=== PATIENT | female | born 1945 | race African-American/Black ===

== ENCOUNTER 2016-08-14 16:03 | Inpatient (IN) | payer OTHER ==
[2016-08-14 17:40] LABS: BASOPHIL 0.3 % (0-2.0); MCHC 31.9 g/dl (32.0-36.0); MEAN CELL VOLUME 91.1 fl (80-96); MEAN PLT VOLUME 8.3 fl (7.5-11.1); NEUTROPHILS 78.7 % (42.8-82.8); PLATELET COUNT 308 K/MM3 (134-434); RDW 15.7 % (11.6-15.6); WHITE BLOOD COUNT 4.7 K/mm3 (4.0-10.0)
[2016-08-14 18:08] LABS: ALBUMIN 3.1 g/dl (3.4-5.0); BILIRUBIN,TOTAL 0.4 mg/dL (0.2-1.0); CALCIUM 9.5 mg/dL (8.5-10.1); CREATININE 5.9 mg/dL (0.55-1.02); TOT PROT 7.4 g/dl (6.4-8.2)
--- NOTE | 2016-08-14 18:28 | PDOC ---
History of Present Illness - General History Source: Patient Exam Limitations: No Limitations <No Graham - Last Filed: 08/14/16 18:40> - General History Source: Custodial Records Exam Limitations: Dementia - History of Present Illness Initial Comments: 08/14/16 18:46 The patient is a 70 year old female, resident of [facility], with a significant past medical history of dementia, hypertension, DVT, GERD, Hep C, anemia, anxiety, and depression, who presents to the emergency department via EMS for further evaluation of renal insufficiency. The patient was seen by her urologist 3 days ago for renal insufficiency, and was started on IV fluids then. The patients blood test was rechecked, and they found creatinine 5.8, potassium 5.8. PMD - Dr. Natarajan ([phone]) Urologist: Dr. Gordon <Charity Nazario - Last Filed: 08/14/16 18:59> - General Chief Complaint: Revisit, Lab Variance Stated Complaint: RENAL FAILURE Time Seen by Provider: 08/14/16 16:11 Past History - Past Medical History Cardiac Disorders: Yes (bradycardia,dvt) CHF: No Dementia: Yes Diabetes: No GI Disorders: Yes (gerd, failure to thrive) HTN: Yes Psychiatric Problems: Yes (anxiety/depression,dementia) Suicide Attempt (Hx): No - Immunization History Immunization Up to Date: Yes - Psycho/Social/Smoking Cessation Hx Anxiety: No Suicidal Ideation: No Smoking History: Never smoked Have you smoked in the past 12 months: No Number of Cigarettes Smoked Daily: 0 If you are a former smoker, when did you quit?: 5 years ago Hx Alcohol Use: No Drug/Substance Use Hx: No Substance Use Type: None Hx Substance Use Treatment: No <No Graham - Last Filed: 08/14/16 18:40> <Charity Nazario - Last Filed: 08/14/16 18:59> - Past Medical History Allergies/Adverse Reactions: Allergies Allergy/AdvReac Type Severity Reaction Status Date / Time No Known Allergies Allergy Verified 07/14/16 16:13 Home Medications: Ambulatory Orders Acetaminophen 325 mg PO Q6H PRN 07/14/16 Clonidine Patch [Catapres Tts Patch -] 0.1 mg TD WEEKLY 07/14/16 Docusate Sodium 300 mg PO HS 07/14/16 Folic Acid 1 mg PO DAILY 07/14/16 Hydralazine HCl 100 mg PO Q8H 07/14/16 Polyethylene Glycol 3350 [Miralax 119 gm Btl -] 17 gm PO DAILY 07/14/16 Ranitidine HCl [Zantac] 150 mg PO BID 07/14/16 Rivastigmine Tartrate [Rivastigmine] 1.5 mg PO BID 07/14/16 Sennosides/Docusate Sodium [Senna Laxative Tablet] 1 each PO HS 07/14/16 Apixaban [Eliquis] 2.5 mg PO BID #30 tablet 07/20/16 Mirtazapine [Remeron -] 7.5 mg PO HS tablet 07/20/16 Review of Systems - Review of Systems Able to Perform ROS?: No (Unable to obtain-dementia) <Charity Nazario - Last Filed: 08/14/16 18:59> *Physical Exam - Vital Signs Last Vital Signs Temp Pulse Resp BP Pulse Ox 100 F H 90 18 164/84 95 08/14/16 16:31 08/14/16 16:31 08/14/16 16:31 08/14/16 16:31 08/14/16 16:31 <No Graham - Last Filed: 08/14/16 18:40> - Vital Signs Last Vital Signs Temp Pulse Resp BP Pulse Ox 100 F H 90 18 164/84 95 08/14/16 16:31 08/14/16 16:31 08/14/16 16:31 08/14/16 16:31 08/14/16 16:31 - Physical Exam Comments: 08/14/16 18:59 GENERAL: The patient is in no acute distress. HEAD: Normal with no signs of trauma. EYES: PERRLA, EOMI, sclera anicteric, conjunctiva clear. ENT: Ears normal, nares patent, oropharynx clear without exudates. Moist mucous membranes. NECK: Normal range of motion, supple without lymphadenopathy, JVD, or masses. LUNGS: Breath sounds equal, clear to auscultation bilaterally. No wheezes, and no crackles. HEART:Regular rate and rhythm, normal S1 and S2 without murmur, rub or gallop. ABDOMEN: Soft, nontender, normoactive bowel sounds. No guarding, no rebound. EXTREMITIES: Normal range of motion, no edema. No clubbing or cyanosis. No erythema, or tenderness. NEUROLOGICAL: Cranial nerves II through XII grossly intact. Normal speech. No focal neurological deficits. MUSCULOSKELETAL: Back non-tender to palpation, no CVA tenderness SKIN: Warm, Dry, normal turgor, no rashes or lesions noted. <Charity Nazario - Last Filed: 08/14/16 18:59> Heart Score/ECG Review #1 ECG reviewed & interpreted by me at: 18:40 08/14/16 18:40 Twelve-lead EKG was performed and reviewed by me. There is normal sinus rhythm with a normal rate of 88 bpm. The axis is normal. The intervals are normal - pr : 136ms, QRS:74, QTc:454ms. There are no ST or T wave abnormalities. <No Graham - Last Filed: 08/14/16 18:40> ED Treatment Course - LABORATORY CBC & Chemistry Diagram: 08/14/16 17:32 08/14/16 17:32 - ADDITIONAL ORDERS Additional order review: Laboratory Results 08/14/16 17:32 Sodium 146 H Potassium 4.8 D Chloride 113 H Carbon Dioxide 19 L Anion Gap 14 BUN 56 H D Creatinine 5.9 H D Creat Clearance w eGFR 7.05 Random Glucose 104 Calcium 9.5 Total Bilirubin 0.4 D AST 19 ALT 10 L Alkaline Phosphatase 74 D Total Protein 7.4 D Albumin 3.1 L D 08/14/16 17:32 RBC 2.83 L MCV 91.1 MCHC 31.9 L RDW 15.7 H D MPV 8.3 Neutrophils % 78.7 Lymphocytes % 14.8 D Monocytes % 5.2 Eosinophils % 1.0 Basophils % 0.3 <No Graham - Last Filed: 08/14/16 18:40> - LABORATORY CBC & Chemistry Diagram: 08/14/16 17:32 08/14/16 17:32 - ADDITIONAL ORDERS Additional order review: Laboratory Results 08/14/16 17:32 Sodium 146 H Potassium 4.8 D Chloride 113 H Carbon Dioxide 19 L Anion Gap 14 BUN 56 H D Creatinine 5.9 H D Creat Clearance w eGFR 7.05 Random Glucose 104 Calcium 9.5 Total Bilirubin 0.4 D AST 19 ALT 10 L Alkaline Phosphatase 74 D Total Protein 7.4 D Albumin 3.1 L D 08/14/16 17:32 RBC 2.83 L MCV 91.1 MCHC 31.9 L RDW 15.7 H D MPV 8.3 Neutrophils % 78.7 Lymphocytes % 14.8 D Monocytes % 5.2 Eosinophils % 1.0 Basophils % 0.3 <Charity Nazario - Last Filed: 08/14/16 18:59> Medical Decision Making - Medical Decision Making 08/14/16 18:32 A portion of this note was documented by scribe services under my direction. I have reviewed the details of the note, within reason, and agree with the documentation with the following case summary and management plan written by me. Nursing documentation reviewed and incorporated into medical decision making This pt is a 70 yo F with a history of Dementia presenting to the ER from [place] Pt noted last week to have and increased creatinine Started on Normal Saline Pt labs checked this morning Pt Potassium 5.8, creatinine 5.8 Pt has no complaints in the ER Laboratory Tests 07/20/16 07/20/16 08/14/16 07:00 07:00 17:32 WBC 5.1 4.7 Hgb 9.8 L 8.2 L D Hct 28.5 L 25.8 L Plt Count 259 308 Sodium 142 Potassium 3.7 Chloride 108 H Carbon Dioxide 20 L Anion Gap 14 BUN 31 H Creatinine 2.8 H Random Glucose 94 08/14/16 17:32 WBC Hgb Hct Plt Count Sodium 146 H Potassium 4.8 D Chloride 113 H Carbon Dioxide 19 L Anion Gap 14 BUN 56 H D Creatinine 5.9 H D Random Glucose [address] Viera Will admit to med surg Will continue hydration Clinical Impression: Renal insufficiency <No Graham - Last Filed: 08/14/16 18:40> *DC/Admit/Observation/Transfer - Discharge Dispostion Admit: Yes <No Graham - Last Filed: 08/14/16 18:40> - Attestations Scribe Attestion: 08/14/16 18:47 Documentation prepared by Charity Nazario, acting as medical collections specialist for No Graham MD. <Charity Nazario - Last Filed: 08/14/16 18:59> Diagnosis at time of Disposition: Acute renal failure Qualifiers: Acute renal failure type: unspecified Qualified Code(s): N17.9 - Acute kidney failure, unspecified - Discharge Dispostion Condition at time of disposition: Stable
[2016-08-14] MEDS ORDERED: SODIUM CHLORIDE 1,000 ML IV STA (18:38)
[2016-08-14] MEDS ORDERED: PATIENT'S OWN MEDICATION (NON-FORMULARY) (Acetaminophen [Acetaminophen] 325 MG) PO PRN (21:28)
[2016-08-14] MEDS ORDERED: DOCUSATE SODIUM PO SCH (22:00)
[2016-08-14] MEDS: hydrALAZINE HCL 50 MG TABLET (FP) PO SCH (22:10)
[2016-08-14] MEDS: DOCUSATE SODIUM 100 MG CAPSULE (FP) PO SCH (22:10)
[2016-08-14] MEDS: MIRTAZAPINE 15 MG TABLET (FP) PO SCH (22:11)
[2016-08-14] MEDS: SENNOSIDES/DOCUSATE COMBO (SENNA PLUS) TABLET (UD) PO SCH (22:11)
[2016-08-14] MEDS: CALCIUM 500MG/VIT-D 200 UNITS COMBO TABLET (FP) PO SCH (22:11)
[2016-08-14] MEDS: RANITIDINE HCL 150 MG TABLET (FP) PO SCH (22:11)
[2016-08-14] MEDS: risperiDONE 0.25 MG TABLET (FP) PO SCH (22:12)
[2016-08-14] MEDS: APIXABAN 2.5 MG TABLET PO SCH (22:12)
[2016-08-14] MEDS: RIVASTIGMINE TARTRATE 1.5 MG CAPSULE PO SCH (22:12)
[2016-08-14 23:29] VITALS: BMI 21.5
[2016-08-15] MEDS: hydrALAZINE HCL 50 MG TABLET (FP) PO SCH ×3 (06:00→21:31)
[2016-08-15 08:38] LABS: BASOPHIL 0.4 % (0-2.0); EOSINOPHIL 1.1 % (0-4.5); MCH 29.9 pg (25.7-33.7); MCHC 32.7 g/dl (32.0-36.0); MEAN CELL VOLUME 91.2 fl (80-96); MEAN PLT VOLUME 7.8 fl (7.5-11.1); NEUTROPHILS 74.9 % (42.8-82.8); PLATELET COUNT 256 K/MM3 (134-434); RDW 15.4 % (11.6-15.6); WHITE BLOOD COUNT 4.6 K/mm3 (4.0-10.0)
[2016-08-15 08:51] LABS: ALBUMIN 2.9 g/dl (3.4-5.0); BILIRUBIN,TOTAL 0.4 mg/dL (0.2-1.0); CALCIUM 8.6 mg/dL (8.5-10.1); CREATININE 5.4 mg/dL (0.55-1.02); PHOSPHOROUS 3.7 mg/dL (2.5-4.9); TOT PROT 6.8 g/dl (6.4-8.2)
[2016-08-15] MEDS ORDERED: PT OWN MED DRAWER 7, Y5N ONE (10:02)
[2016-08-15] MEDS: FOLIC ACID 1 MG TABLET (FP) PO SCH (10:16)
[2016-08-15] MEDS: CALCIUM 500MG/VIT-D 200 UNITS COMBO TABLET (FP) PO SCH ×2 (10:16→21:31)
[2016-08-15] MEDS: APIXABAN 2.5 MG TABLET PO SCH ×2 (10:16→21:32)
[2016-08-15] MEDS: POLYETHYLENE GLYCOL 3350 119 GM BTL PO SCH (10:17)
[2016-08-15] MEDS: RANITIDINE HCL 150 MG TABLET (FP) PO SCH ×2 (10:17→21:31)
--- NOTE | 2016-08-15 10:25 | CONSULT ---
Consult - text type - Consultation Consultation Note: Renal Consult for SHARI This is a 70 year old woman that is known to me with PMhx of Dementia, Hypertension, DVT, GERD, Hep C, Anemia, Anxiety, Depression who was sent in from [facility] with worsening renal function. S/p recent hospital admission with Anemia and SHARI with peak Cr of 3.1. Pt without significant proteinuira or hematuria at that time and etiology was believed to be ATN in setting of Anemia however pt with worsening renal function as outpatient. Pt denies any Abd pain, difficulty with voiding. No NSAIDs have been given to the patient. No recent contrast exposure. Pt denies any Uremic Symptoms at the present time. Pt is very combative and agitated (baseline?). Denies any confuison, lethargy, chest pain, abd pain, N/V/D. PMhx: as above Allergies: NKDA Family Hx: NC Social Hx: Unknown ROS: as per HPI, all other ROS negative Home Meds: Medication Instructions Recorded Acetaminophen 325 mg PO Q6H PRN 07/14/16 Clonidine Patch [Catapres Tts 0.1 mg TD WEEKLY 07/14/16 Patch -] Docusate Sodium 300 mg PO HS 07/14/16 Folic Acid 1 mg PO DAILY 07/14/16 Hydralazine HCl 100 mg PO Q8H 07/14/16 Polyethylene Glycol 3350 [Miralax 17 gm PO DAILY 07/14/16 119 gm Btl -] Ranitidine HCl [Zantac] 150 mg PO BID 07/14/16 Rivastigmine Tartrate 1.5 mg PO BID 07/14/16 [Rivastigmine] Sennosides/Docusate Sodium [Senna 1 each PO HS 07/14/16 Laxative Tablet] Apixaban [Eliquis] 2.5 mg PO BID #30 tablet 07/20/16 Mirtazapine [Remeron -] 7.5 mg PO HS tablet 07/20/16 Calcium Carbonate/Vitamin D3 1 tab PO BID 08/14/16 [Oyster Shell 500-Vit D3 200 Tb] Risperidone 1 tab PO HS 08/14/16 Vital Signs Temperature 97.8 F 08/15/16 05:38 Pulse Rate 80 08/15/16 05:38 Respiratory Rate 18 08/15/16 05:38 Blood Pressure 160/74 08/15/16 05:38 O2 Sat by Pulse Oximetry (%) 95 08/14/16 23:08 Gen: NAD HEENT: NC/AT, MMM No JVD CVS: RRR, No M/R Lungs: CTA Abd: soft NT/ND Ext: No edema, clubbing or cyanosis : No bladder distension CBC, BMP 08/15/16 08:15 08/15/16 08:15 Current Medications Acetaminophen (Tylenol -) 325 mg PO Q6H PRN PRN Reason: PAIN Apixaban (Eliquis -) 2.5 mg PO BID [facility] Last Admin: 08/15/16 10:16 Dose: 2.5 mg Calcium Carbonate/Cholecalciferol (Os-Hang 500+D -) 1 tab PO BID [facility] Last Admin: 08/15/16 10:16 Dose: 1 tab Clonidine HCl (Catapres Tts Patch -) 0.1 mg TD Fr@10 [facility] Docusate Sodium (Colace -) 300 mg PO [facility] Last Admin: 08/14/16 22:10 Dose: 300 mg Folic Acid (Folic Acid -) 1 mg PO DAILY [facility] Last Admin: 08/15/16 10:16 Dose: 1 mg Hydralazine HCl (Apresoline -) 100 mg PO TID [facility] Last Admin: 08/15/16 06:00 Dose: 100 mg Mirtazapine (Remeron -) 7.5 mg PO [facility] Last Admin: 08/14/16 22:11 Dose: 7.5 mg Polyethylene Glycol (Miralax (For Daily Use) -) 17 gm PO DAILY [facility] Last Admin: 08/15/16 10:17 Dose: Not Given Ranitidine HCl (Zantac -) 150 mg PO BID [facility] Last Admin: 08/15/16 10:17 Dose: 150 mg Risperidone (Risperdal -) 0.25 mg PO [facility] Last Admin: 08/14/16 22:12 Dose: 0.25 mg Rivastigmine Tartrate (Exelon (Nf) -) 1.5 mg PO BID [facility] Last Admin: 08/14/16 22:12 Dose: 1.5 mg Senna/Docusate Sodium (Pericolace -) 1 tablet PO [facility] Last Admin: 08/14/16 22:11 Dose: 1 tablet A/P 70 year old woman that is known to me with PMhx of Dementia, Hypertension, DVT, GERD, Hep C, Anemia, Anxiety, Depression who was sent in from [facility] with worsening renal function. #Acute Renal Failure Pt without improvement in renal function despite moderate IVF as outpatient r/o obstruction vs. GN/RPGN (hx of Hep C (MPGN) vs. ATN Will need to r/o obstruction -> Renal/Bladder US Serologic work up (KAIDEN, ANCAs, Hepatitis Profile, SPEP, Cryogloublins, Anti-GBM) Pt refusing De La Cruz catheter Continue isotonic IVF at this time Check Urines for UA, UCPR, FeNa Check Hepatitis Profile - hx of hep C in the past No indication for dialysis at this time given no uremia, hyperkalmeia, acidosis Trend BUN/Cr, electrolytes Dose all meds for Cr Cl less then 10 #Chronic Anemia Check Iron profile Check LDH, Haptoglobin No acute indication for transfusion #Dementia/Agitation On Riperidone Management as per PMD #Hypertension Continue Hydralazine/Clonidine Goal BP < 150/90 #Metabolic acidosis Start sodium bicarb 650mg BID Thank you will follow closely Jhony Gordon DO
--- NOTE | 2016-08-15 11:08 | HP ---
Admitting History and Physical - Primary Care Physician PCP: Silke Quintero - Admission Chief Complaint: ARF History Source: Patient, Medical Record Limitations to Obtaining History: Dementia - Past Medical History COMMODITY LEAD: Yes: Dementia Cardiovascular: Yes: Deep Vein Thrombosis (s/p ivc filter), HTN Gastrointestinal: Yes: GERD Hepatobiliary: Yes: Hepatitis C Renal/: Yes: Renal Inusuff, Other (De La Cruz Catheter in place. ) ...: No Heme/Onc: Yes: Anemia Psych: Yes: Anxiety, Depression - Smoking History Smoking history: Never smoked Have you smoked in the past 12 months: No Aproximately how many cigarettes per day: 0 If you are a former smoker, when did you quit?: 5 years ago - Alcohol/Substance Use Hx Alcohol Use: No - Social History History of Recent Travel: No Home Medications - Allergies Allergies/Adverse Reactions: Allergies Allergy/AdvReac Type Severity Reaction Status Date / Time No Known Allergies Allergy Verified 07/14/16 16:13 - Home Medications Home Medications: Ambulatory Orders Acetaminophen 325 mg PO Q6H PRN 07/14/16 Clonidine Patch [Catapres Tts Patch -] 0.1 mg TD WEEKLY 07/14/16 Docusate Sodium 300 mg PO HS 07/14/16 Folic Acid 1 mg PO DAILY 07/14/16 Hydralazine HCl 100 mg PO Q8H 07/14/16 Polyethylene Glycol 3350 [Miralax 119 gm Btl -] 17 gm PO DAILY 07/14/16 Ranitidine HCl [Zantac] 150 mg PO BID 07/14/16 Rivastigmine Tartrate [Rivastigmine] 1.5 mg PO BID 07/14/16 Sennosides/Docusate Sodium [Senna Laxative Tablet] 1 each PO HS 07/14/16 Apixaban [Eliquis] 2.5 mg PO BID #30 tablet 07/20/16 Mirtazapine [Remeron -] 7.5 mg PO HS tablet 07/20/16 Calcium Carbonate/Vitamin D3 [Oyster Shell 500-Vit D3 200 Tb] 1 tab PO BID 08/14 Risperidone 1 tab PO HS 08/14/16 Review of Systems - Review of Systems Cardiovascular: denies: Chest Pain Respiratory: denies: SOB Physical Examination Vital Signs: Vital Signs Temperature 97.8 F 08/15/16 05:38 Pulse Rate 80 08/15/16 05:38 Respiratory Rate 18 08/15/16 05:38 Blood Pressure 160/74 08/15/16 05:38 O2 Sat by Pulse Oximetry (%) 95 08/14/16 23:08 Findings/Remarks: CALM COOPERATIVE TOLD BY RN THIS AM PATIENT WAS AGITATED & PULLED OUT IV LINE Constitutional: Yes: Calm Cardiovascular: Yes: Regular Rate and Rhythm, S1, S2 Respiratory: Yes: CTA Bilaterally Gastrointestinal: Yes: Normal Bowel Sounds, Soft Edema: No Labs: CBC, BMP 08/15/16 08:15 08/15/16 08:15 Imaging - Results Chest X-ray: Report Reviewed Problem List - Problems (1) Acute renal failure Code(s): N17.9 - ACUTE KIDNEY FAILURE, UNSPECIFIED Qualifiers: Acute renal failure type: unspecified Qualified Code(s): N17.9 - Acute kidney failure, unspecified (2) Dementia Code(s): F03.90 - UNSPECIFIED DEMENTIA WITHOUT BEHAVIORAL DISTURBANCE Qualifiers: Dementia type: unspecified type Dementia behavioral disturbance: without behavioral disturbance Qualified Code(s): F03.90 - Unspecified dementia without behavioral disturbance (3) DVT (deep venous thrombosis) Code(s): I82.409 - ACUTE EMBOLISM AND THOMBOS UNSP DEEP VN UNSP LOWER EXTREMITY (4) Failure to thrive in adult Code(s): R62.7 - ADULT FAILURE TO THRIVE (5) HTN (hypertension) Code(s): I10 - ESSENTIAL (PRIMARY) HYPERTENSION (6) Mood disorder Code(s): F39 - UNSPECIFIED MOOD [AFFECTIVE] DISORDER Assessment/Plan The patient is a 70 year old female, resident of [facility], with a significant past medical history of dementia, hypertension, DVT, GERD, Hep C, anemia, anxiety, and depression, who presents to the emergency department via EMS for further evaluation of renal insufficiency. The patient was seen by her urologist 3 days ago for renal insufficiency, and was started on IV fluids then. The patients blood test was rechecked, and they found creatinine 5.8, potassium 5.8. PMD - Dr. Natarajan ([phone]) Urologist: Dr. Gordon 1. ARF APPRECIATE RENAL CONSULT - F/U RENAL W/U & SONO 2. DVT/HTN ON NOAC 3. DEMENTIA/FTT/MOOD DISORDER AGITATION -> GIVEN HALDOL - ATIVAN IV PRN 4. R/O INFECTION Tmax 100 CXr NAD BCx PENDING - AREN ROBLES
[2016-08-15] MEDS ORDERED: HALOPERIDOL LACTATE 5 MG/ML IM ONE ×2 (11:30→13:30)
[2016-08-15] MEDS: RIVASTIGMINE TARTRATE 1.5 MG CAPSULE PO SCH ×2 (13:10→21:43)
[2016-08-15] MEDS: DOCUSATE SODIUM 100 MG CAPSULE (FP) PO SCH (21:31)
[2016-08-15] MEDS: SENNOSIDES/DOCUSATE COMBO (SENNA PLUS) TABLET (UD) PO SCH (21:31)
[2016-08-15] MEDS: SODIUM BICARBONATE 650 MG TABLET PO SCH (21:31)
[2016-08-15] MEDS: MIRTAZAPINE 15 MG TABLET (FP) PO SCH (21:32)
[2016-08-15] MEDS: risperiDONE 0.25 MG TABLET (FP) PO SCH (22:51)
[2016-08-16] MEDS: hydrALAZINE HCL 50 MG TABLET (FP) PO SCH ×3 (06:19→21:49)
[2016-08-16 08:21] LABS: BASOPHIL 0.5 % (0-2.0); EOSINOPHIL 0.9 % (0-4.5); MCH 30.5 pg (25.7-33.7); MCHC 33.1 g/dl (32.0-36.0); NEUTROPHILS 71.3 % (42.8-82.8); PLATELET COUNT 267 K/MM3 (134-434); RDW 15.5 % (11.6-15.6); WHITE BLOOD COUNT 4.5 K/mm3 (4.0-10.0)
[2016-08-16 09:15] LABS: ALBUMIN 3.2 g/dl (3.4-5.0); BILIRUBIN,TOTAL 0.6 mg/dL (0.2-1.0); CALCIUM 9.8 mg/dL (8.5-10.1); CREATININE 5.7 mg/dL (0.55-1.02); FERRITIN 611.17 ng/ml (6.9-282.5); MAGNESIUM 2.1 mg/dL (1.8-2.4); PHOSPHOROUS 4.3 mg/dL (2.5-4.9); TOT PROT 6.9 g/dl (6.4-8.2)
[2016-08-16 09:51] LABS: URINE APPEARANCE TURBID; URINE BILIRUBIN NEGATIVE (NEGATIVE); URINE COLOR YELLOW; URINE GLUCOSE (UA) NEGATIVE (NEGATIVE); URINE KETONE NEGATIVE (NEGATIVE); URINE NITRITE POSITIVE (NEGATIVE); URINE UROBILINOGEN NEGATIVE E.U./dl (0.2-1.0)
[2016-08-16] MEDS: FOLIC ACID 1 MG TABLET (FP) PO SCH (10:06)
[2016-08-16] MEDS: APIXABAN 2.5 MG TABLET PO SCH ×2 (10:06→21:47)
[2016-08-16] MEDS: CALCIUM 500MG/VIT-D 200 UNITS COMBO TABLET (FP) PO SCH ×2 (10:06→21:48)
[2016-08-16] MEDS: RIVASTIGMINE TARTRATE 1.5 MG CAPSULE PO SCH ×2 (10:07→22:09)
[2016-08-16] MEDS: POLYETHYLENE GLYCOL 3350 119 GM BTL PO SCH (10:08)
[2016-08-16 10:38] LABS: URINE BLOOD 3+ (NEGATIVE); URINE LEUK ESTERASE 3+ (NEGATIVE); URINE PROTEIN 2+ (NEGATIVE)
[2016-08-16 10:40] LABS: URINE BACTERIA MANY /hpf (NONE SEEN); URINE MUCUS RARE; URINE RBC 90 /hpf (0-3); URINE WBC 1281 /hpf (3-5)
[2016-08-16] MEDS: SODIUM BICARBONATE 650 MG TABLET PO SCH ×2 (10:51→21:48)
[2016-08-16] MEDS: RANITIDINE HCL 150 MG TABLET (FP) PO SCH ×2 (10:51→21:48)
--- NOTE | 2016-08-16 11:59 | PN ---
Progress Note (short form) - Note Progress Note: Renal Follow up for SHARI Pt seen and examined at the bedside hernandez inserted this am with cloudy/milky urine no chest pain, sob, abd pain pt complains of pain in the vagina denies any dysuria, fever or chills Vital Signs Temperature 98.1 F 08/16/16 06:00 Pulse Rate 88 08/16/16 06:00 Respiratory Rate 18 08/16/16 06:00 Blood Pressure 157/94 08/16/16 06:00 O2 Sat by Pulse Oximetry (%) 94 L 08/15/16 21:00 Intake & Output 08/13/16 08/14/16 08/15/16 08/16/16 23:59 23:59 23:59 23:59 Intake Total 100 320 300 Balance 100 320 300 Weight 118 lb Gen: NAD, AAOx3 HEENT: NC/AT, MMM No JVD CVS: RRR, No M/R Lungs: CTA Abd: soft NT/ND Ext: No edema, clubbing or cyanosis : Hernandez in place with cloudy urine Refused Vaginal exam CBC, BMP 08/16/16 06:30 08/16/16 06:30 Current Medications Acetaminophen (Tylenol -) 325 mg PO Q6H PRN PRN Reason: PAIN Apixaban (Eliquis -) 2.5 mg PO BID [facility] Last Admin: 08/16/16 10:06 Dose: 2.5 mg Calcium Carbonate/Cholecalciferol (Os-Hang 500+D -) 1 tab PO BID [facility] Last Admin: 08/16/16 10:06 Dose: 1 tab Cefuroxime Axetil (Ceftin -) 250 mg PO DAILY [facility] Clonidine HCl (Catapres Tts Patch -) 0.1 mg TD Fr@10 [facility] Docusate Sodium (Colace -) 300 mg PO [facility] Last Admin: 08/15/16 21:31 Dose: 300 mg Folic Acid (Folic Acid -) 1 mg PO DAILY [facility] Last Admin: 08/16/16 10:06 Dose: 1 mg Hydralazine HCl (Apresoline -) 100 mg PO TID [facility] Last Admin: 08/16/16 06:19 Dose: 100 mg Mirtazapine (Remeron -) 7.5 mg PO [facility] Last Admin: 08/15/16 21:32 Dose: 7.5 mg Polyethylene Glycol (Miralax (For Daily Use) -) 17 gm PO DAILY [facility] Last Admin: 08/16/16 10:08 Dose: 17 gm Ranitidine HCl (Zantac -) 150 mg PO BID [facility] Last Admin: 08/16/16 10:51 Dose: 150 mg Risperidone (Risperdal -) 0.25 mg PO HS [facility] Last Admin: 08/15/16 22:51 Dose: 0.25 mg Rivastigmine Tartrate (Exelon (Nf) -) 1.5 mg PO BID [facility] Last Admin: 08/16/16 10:07 Dose: Not Given Senna/Docusate Sodium (Pericolace -) 1 tablet PO HS [facility] Last Admin: 08/15/16 21:31 Dose: 1 tablet Sodium Bicarbonate (Sodium Bicarbonate -) 650 mg PO BID [facility] Last Admin: 08/16/16 10:51 Dose: 650 mg A/P 70 year old woman that is known to me with PMhx of Dementia, Hypertension, DVT, GERD, Hep C, Anemia, Anxiety, Depression who was sent in from [facility] with worsening renal function. #Acute Renal Failure Etiology of renal failure unclear Serologic studies sent RPR, Hepatitis negative. Rest of studies still pending pt may need renal biopsy if there is not improvement in renal function off IVF because pt pulled IV out, however appears evolemic at present time no acute indication for [employer] Dose all meds for Cr Cl ~10 #Chronic Anemia iron profile pending LDH/Haptoglobin not consistent with hemolysis #Dementia/Agitation On Riperidone Management as per PMD #Hypertension Continue Hydralazine/Clonidine Goal BP < 150/90 #Metabolic acidosis Start sodium bicarb 650mg BID Jhony Gordon DO
--- NOTE | 2016-08-16 12:23 | PN ---
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 - Current Medication List Current Medications: Active Medications Acetaminophen (Tylenol -) 325 mg PO Q6H PRN PRN Reason: PAIN Apixaban (Eliquis -) 2.5 mg PO BID [facility] Last Admin: 08/16/16 10:06 Dose: 2.5 mg Calcium Carbonate/Cholecalciferol (Os-Hang 500+D -) 1 tab PO BID [facility] Last Admin: 08/16/16 10:06 Dose: 1 tab Cefuroxime Axetil (Ceftin -) 250 mg PO DAILY [facility] Clonidine HCl (Catapres Tts Patch -) 0.1 mg TD Fr@10 [facility] Docusate Sodium (Colace -) 300 mg PO [facility] Last Admin: 08/15/16 21:31 Dose: 300 mg Folic Acid (Folic Acid -) 1 mg PO DAILY [facility] Last Admin: 08/16/16 10:06 Dose: 1 mg Hydralazine HCl (Apresoline -) 100 mg PO TID [facility] Last Admin: 08/16/16 06:19 Dose: 100 mg Mirtazapine (Remeron -) 7.5 mg PO [facility] Last Admin: 08/15/16 21:32 Dose: 7.5 mg Polyethylene Glycol (Miralax (For Daily Use) -) 17 gm PO DAILY [facility] Last Admin: 08/16/16 10:08 Dose: 17 gm Ranitidine HCl (Zantac -) 150 mg PO BID [facility] Last Admin: 08/16/16 10:51 Dose: 150 mg Risperidone (Risperdal -) 0.25 mg PO [facility] Last Admin: 08/15/16 22:51 Dose: 0.25 mg Rivastigmine Tartrate (Exelon (Nf) -) 1.5 mg PO BID [facility] Last Admin: 08/16/16 10:07 Dose: Not Given Senna/Docusate Sodium (Pericolace -) 1 tablet PO [facility] Last Admin: 08/15/16 21:31 Dose: 1 tablet Sodium Bicarbonate (Sodium Bicarbonate -) 650 mg PO BID [facility] Last Admin: 08/16/16 10:51 Dose: 650 mg - Objective Vital Signs: Vital Signs Temperature 98.1 F 08/16/16 06:00 Pulse Rate 88 08/16/16 06:00 Respiratory Rate 18 08/16/16 06:00 Blood Pressure 157/94 08/16/16 06:00 O2 Sat by Pulse Oximetry (%) 94 L 08/15/16 21:00 Constitutional: Yes: Calm Cardiovascular: Yes: Regular Rate and Rhythm, S1, S2 Respiratory: Yes: CTA Bilaterally Gastrointestinal: Yes: Normal Bowel Sounds, Soft Genitourinary: Yes: Other (NO LESIONS SEEN WHEN DO EXTERNAL EXAM. STOOL. PATIENT NOT COOPERATIVE) Edema: No Labs: CBC, BMP 08/16/16 06:30 08/16/16 06:30 Problem List - Problems (1) Acute renal failure Code(s): N17.9 - ACUTE KIDNEY FAILURE, UNSPECIFIED Qualifiers: Acute renal failure type: unspecified Qualified Code(s): N17.9 - Acute kidney failure, unspecified (2) Dementia Code(s): F03.90 - UNSPECIFIED DEMENTIA WITHOUT BEHAVIORAL DISTURBANCE Qualifiers: Dementia type: unspecified type Dementia behavioral disturbance: without behavioral disturbance Qualified Code(s): F03.90 - Unspecified dementia without behavioral disturbance (3) DVT (deep venous thrombosis) Code(s): I82.409 - ACUTE EMBOLISM AND THOMBOS UNSP DEEP VN UNSP LOWER EXTREMITY (4) Failure to thrive in adult Code(s): R62.7 - ADULT FAILURE TO THRIVE (5) HTN (hypertension) Code(s): I10 - ESSENTIAL (PRIMARY) HYPERTENSION (6) Mood disorder Code(s): F39 - UNSPECIFIED MOOD [AFFECTIVE] DISORDER Assessment/Plan The patient is a 70 year old female, resident of [facility], with a significant past medical history of dementia, hypertension, DVT, GERD, Hep C, anemia, anxiety, and depression, who presents to the emergency department via EMS for further evaluation of renal insufficiency. The patient was seen by her urologist 3 days ago for renal insufficiency, and was started on IV fluids then. The patients blood test was rechecked, and they found creatinine 5.8, potassium 5.8. PMD - Dr. Natarajan ([phone]) Urologist: Dr. Gordon 1. ARF APPRECIATE RENAL CONSULT -> pt may need renal biopsy if there is not improvement in renal function F/U RENAL W/U & SONO 2. DVT/HTN ON NOAC 3. DEMENTIA/FTT/MOOD DISORDER AGITATION -> GIVEN HALDOL ATIVAN IV PRN COMBATIVE PULLS OUT IV LINES 4. R/O INFECTION NOW NO FEVER WBC NEG CXr NAD BCx NEG UA LEUK -> F/U UCx (URINE WAS CLOUDY) MONITOR - ID 5. ANEMIA HBG 7.5 - F/U IRON STUDIES & FOBT SYSTEM ADMIN FM
[2016-08-16] MEDS: CEFUROXIME AXETIL 250 MG TABLET PO SCH (14:16)
--- NOTE | 2016-08-16 14:20 | PN ---
Progress Note (short form) - Note Progress Note: ID consult dictated imp/reccd SHARI/CKD UTI- pyuria dementia anemia c/o vaginal pain- refusing gyne exam no external lesions noted hernandez in place no fevers no iv access-patient pulled iv out ceftin for now, f/u urine culture CBC, BMP 08/16/16 06:30 08/16/16 06:30 Problem List - Problems (1) Acute renal failure Code(s): N17.9 - ACUTE KIDNEY FAILURE, UNSPECIFIED Qualifiers: Acute renal failure type: unspecified Qualified Code(s): N17.9 - Acute kidney failure, unspecified (2) UTI (urinary tract infection) Code(s): N39.0 - URINARY TRACT INFECTION, SITE NOT SPECIFIED (3) Dementia Code(s): F03.90 - UNSPECIFIED DEMENTIA WITHOUT BEHAVIORAL DISTURBANCE Qualifiers: Dementia type: unspecified type Dementia behavioral disturbance: without behavioral disturbance Qualified Code(s): F03.90 - Unspecified dementia without behavioral disturbance
[2016-08-16 14:52] LABS: URINE CREATININE 60.2 mg/dL
--- NOTE | 2016-08-16 16:07 | CONS ---
DATE OF CONSULTATION: DATE OF DICTATION: 08/16/2016 REQUESTED BY: This is a 70-year-old woman with a history of dementia, hypertension, chronic kidney disease. She was sent to the hospital with worsening renal function. She had a recent admission earlier this year, July 14 to July 20. Her peak creatinine was 3. When she was discharged, it was 2.8. She is now admitted with a creatinine of 5.9. She suffers from dementia and is a very poor historian. A De La Cruz catheter was placed and is draining some cloudy urine. There is no history of nonsteroidals. She has no abdominal pain. She is a very poor historian. She is quite combative and gets agitated. She pulled her IV out. She is complaining of vaginal pain and is refusing a gynecologic exam at this time. Her past medical history is notable for dementia, hypertension, history of DVT, GERD, hepatitis C, anemia, anxiety and depression. I do not know if her hepatitis C has been treated before. Her medications include clonidine patch, Colace, folic acid, hydralazine, MiraLax, Zantac, Eliquis, senna, Remeron, calcium and vitamin D, and risperidone. She has no known drug allergies. Family history is not available. REVIEW OF SYSTEMS: She has no other complaints except for vaginal pain. [facility] PHYSICAL EXAMINATION: General: She is awake and alert. She is actually resting comfortably. Vital Signs: Temperature is 97.8. She weighs 118 pounds. Her blood pressure is 144/55. Pulse 84. Respiratory rate 20. HEENT: She is normocephalic. Her eyes are anicteric. Neck: Supple. Lungs: Clear to auscultation. Heart: Regular rate and rhythm. Abdomen: Soft, nontender. She has no protuberance. There is no pain on exam. Genitourinary: External genital exam is without any lesions. De La Cruz is in place. Extremities: Without edema. White count is 4.5, hemoglobin 10.5, platelets 267, BUN 52, creatinine 5.7. Urinalysis is 3+ leukocyte esterase with 1281 white cells. Her hepatitis C antibody is negative. Hepatitis B is negative, as well as RPR. Urine culture is pending. Blood cultures are negative. In summary, this is a 70-year-old woman with acute kidney injury, chronic kidney disease, UTI with pyuria, dementia, and anemia. She is complaining of vaginal pain but refusing services advisor exam. It may be secondary to her De La Cruz. Would continue Ceftin for now and follow up her urine culture. Management of her renal failure per Nephrology. Her care is per Nephrology. Rossana PLUMMER/[id number]
--- NOTE | 2016-08-16 16:55 | EKG ---
Test Reason : Blood Pressure : / mmHG Vent. Rate : 088 BPM Atrial Rate : 088 BPM P-R Int : 136 ms QRS Dur : 074 ms QT Int : 376 ms P-R-T Axes : 074 -25 056 degrees QTc Int : 454 ms POOR DATA QUALITY, INTERPRETATION MAY BE ADVERSELY AFFECTED NORMAL SINUS RHYTHM POSSIBLE LEFT ATRIAL ENLARGEMENT JUNCTIONAL ST DEPRESSION, PROBABLY NORMAL BORDERLINE ECG WHEN COMPARED WITH ECG OF 19-JUL-2016 10:02, NONSPECIFIC T WAVE ABNORMALITY NO LONGER EVIDENT IN INFERIOR LEADS NONSPECIFIC T WAVE ABNORMALITY, IMPROVED IN ANTEROLATERAL LEADS QT HAS LENGTHENED Confirmed by AKI MONTIEL MD ([id number]) on 08/16/2016 4:54:24 PM Referred By: Overread By: AKI MONTIEL MD
[2016-08-16] MEDS ORDERED: PT OWN MED DRAWER 7, Y5N ONE (21:43)
[2016-08-16] MEDS: MIRTAZAPINE 15 MG TABLET (FP) PO SCH (21:47)
[2016-08-16] MEDS: SENNOSIDES/DOCUSATE COMBO (SENNA PLUS) TABLET (UD) PO SCH (21:47)
[2016-08-16] MEDS: risperiDONE 0.25 MG TABLET (FP) PO SCH (21:48)
[2016-08-16] MEDS: ACETAMINOPHEN 325 MG TABLET (FP) PO PRN (21:49)
[2016-08-16] MEDS: DOCUSATE SODIUM 100 MG CAPSULE (FP) PO SCH (21:49)
[2016-08-17 00:06] LABS: A/G RATIO 0.8 (0.7-1.7); ALBUMIN 3.2 g/dL (2.9-4.4); TOTAL PROTEIN 7.2 g/dL (6.0-8.5)
[2016-08-17] MEDS ORDERED: oxyCODONE HCL 5 MG TABLET PO ONE (00:15)
[2016-08-17] MEDS: hydrALAZINE HCL 50 MG TABLET (FP) PO SCH ×3 (05:41→21:51)
[2016-08-17 06:06] LABS: SERUM IRON 53 ug/dL (27-139); TOTAL IRON BINDING CAPACITY 182 ug/dL (250-450); UIBC 129 ug/dL (118-369)
[2016-08-17 07:35] LABS: BASOPHIL 0.5 % (0-2.0); MCH 30.8 pg (25.7-33.7); MCHC 33.9 g/dl (32.0-36.0); MEAN CELL VOLUME 90.9 fl (80-96); MEAN PLT VOLUME 8.4 fl (7.5-11.1); NEUTROPHILS 60.7 % (42.8-82.8); PLATELET COUNT 242 K/MM3 (134-434); RDW 15.5 % (11.6-15.6); WHITE BLOOD COUNT 3.6 K/mm3 (4.0-10.0)
[2016-08-17 08:02] LABS: ALBUMIN 2.8 g/dl (3.4-5.0); BILIRUBIN,TOTAL 0.5 mg/dL (0.2-1.0); CALCIUM 9.1 mg/dL (8.5-10.1); CREATININE 5.6 mg/dL (0.55-1.02); TOT PROT 6.6 g/dl (6.4-8.2)
[2016-08-17 08:39] LABS: HYPOCHROMIA 2+
[2016-08-17] MEDS: SODIUM BICARBONATE 650 MG TABLET PO SCH ×2 (10:11→21:52)
[2016-08-17] MEDS: RANITIDINE HCL 150 MG TABLET (FP) PO SCH ×2 (10:11→21:52)
[2016-08-17] MEDS: FOLIC ACID 1 MG TABLET (FP) PO SCH (10:11)
[2016-08-17] MEDS: CEFUROXIME AXETIL 250 MG TABLET PO SCH (10:12)
[2016-08-17] MEDS: CALCIUM 500MG/VIT-D 200 UNITS COMBO TABLET (FP) PO SCH ×2 (10:12→21:52)
[2016-08-17] MEDS: POLYETHYLENE GLYCOL 3350 119 GM BTL PO SCH (10:13)
[2016-08-17] MEDS: RIVASTIGMINE TARTRATE 1.5 MG CAPSULE PO SCH ×2 (10:13→22:45)
--- NOTE | 2016-08-17 11:54 | PN ---
Progress Note, Physician Chief Complaint: awake alert nad discussed with patient worsening of hemobglobin levels and need for transfusion prbc, she is agreement - Current Medication List Current Medications: Active Medications Acetaminophen (Tylenol -) 325 mg PO Q6H PRN PRN Reason: PAIN Last Admin: 08/16/16 21:49 Dose: 325 mg Apixaban (Eliquis -) 2.5 mg PO BID [facility] Last Admin: 08/16/16 21:47 Dose: 2.5 mg Calcium Carbonate/Cholecalciferol (Os-Hang 500+D -) 1 tab PO BID [facility] Last Admin: 08/17/16 10:12 Dose: 1 tab Cefuroxime Axetil (Ceftin -) 250 mg PO DAILY [facility] Last Admin: 08/17/16 10:12 Dose: 250 mg Clonidine HCl (Catapres Tts Patch -) 0.1 mg TD Fr@10 [facility] Docusate Sodium (Colace -) 300 mg PO [facility] Last Admin: 08/16/16 21:49 Dose: 300 mg Epoetin Connor (Procrit -) 10,000 unit SQ ONCE ONE Stop: 08/17/16 11:51 Folic Acid (Folic Acid -) 1 mg PO DAILY [facility] Last Admin: 08/17/16 10:11 Dose: 1 mg Hydralazine HCl (Apresoline -) 100 mg PO TID [facility] Last Admin: 08/17/16 05:41 Dose: 100 mg Mirtazapine (Remeron -) 7.5 mg PO [facility] Last Admin: 08/16/16 21:47 Dose: 7.5 mg Polyethylene Glycol (Miralax (For Daily Use) -) 17 gm PO DAILY [facility] Last Admin: 08/17/16 10:13 Dose: 17 gm Ranitidine HCl (Zantac -) 150 mg PO BID [facility] Last Admin: 08/17/16 10:11 Dose: 150 mg Risperidone (Risperdal -) 0.25 mg PO [facility] Last Admin: 08/16/16 21:48 Dose: 0.25 mg Rivastigmine Tartrate (Exelon (Nf) -) 1.5 mg PO BID [facility] Last Admin: 08/17/16 10:13 Dose: 1.5 mg Senna/Docusate Sodium (Pericolace -) 1 tablet PO [facility] Last Admin: 08/16/16 21:47 Dose: 1 tablet Sodium Bicarbonate (Sodium Bicarbonate -) 650 mg PO BID [facility] Last Admin: 08/17/16 10:11 Dose: 650 mg - Objective Vital Signs: Vital Signs Temperature 98.2 F 08/17/16 11:33 Pulse Rate 74 08/17/16 11:33 Respiratory Rate 16 08/17/16 11:33 Blood Pressure 160/60 08/17/16 11:33 O2 Sat by Pulse Oximetry (%) 94 L 08/17/16 09:00 Constitutional: Yes: No Distress Eyes: Yes: WNL HENT: Yes: WNL Neck: Yes: WNL Cardiovascular: Yes: Pulse Irregular Respiratory: Yes: WNL Gastrointestinal: Yes: WNL Genitourinary: Yes: WNL Musculoskeletal: Yes: Muscle Weakness Extremities: Yes: WNL Edema: No Peripheral Pulses WNL: Yes Integumentary: Yes: WNL Wound/Incision: Yes: Clean/Dry Neurological: Yes: WNL, Pre-Existing Deficit ...Motor Strength: WNL Psychiatric: Yes: Agitated, Other Labs: CBC, BMP 08/17/16 06:30 08/17/16 06:30 Problem List - Problems (1) Acute renal failure Code(s): N17.9 - ACUTE KIDNEY FAILURE, UNSPECIFIED Qualifiers: Acute renal failure type: unspecified Qualified Code(s): N17.9 - Acute kidney failure, unspecified (2) Dehydration Code(s): E86.0 - DEHYDRATION (3) Dementia Code(s): F03.90 - UNSPECIFIED DEMENTIA WITHOUT BEHAVIORAL DISTURBANCE Qualifiers: Dementia type: unspecified type Dementia behavioral disturbance: without behavioral disturbance Qualified Code(s): F03.90 - Unspecified dementia without behavioral disturbance (4) Failure to thrive in adult Code(s): R62.7 - ADULT FAILURE TO THRIVE (5) UTI (urinary tract infection) Code(s): N39.0 - URINARY TRACT INFECTION, SITE NOT SPECIFIED (6) Anemia Code(s): D64.9 - ANEMIA, UNSPECIFIED Qualifiers: Anemia type: unspecified type Qualified Code(s): D64.9 - Anemia, unspecified (7) Chronic kidney disease (CKD), stage III (moderate) Code(s): N18.3 - CHRONIC KIDNEY DISEASE, STAGE 3 (MODERATE) (8) DVT (deep venous thrombosis) Code(s): I82.409 - ACUTE EMBOLISM AND THOMBOS UNSP DEEP VN UNSP LOWER EXTREMITY (9) Mood disorder Code(s): F39 - UNSPECIFIED MOOD [AFFECTIVE] DISORDER Assessment/Plan TRANSFUSE PRBC HEME/ONC CONSULT OCCULT STOOL RENAL EVAL START EPOGEN 10,000 Q WEEKLY
[2016-08-17] MEDS: APIXABAN 2.5 MG TABLET PO SCH ×2 (12:00→22:45)
[2016-08-17] MEDS ORDERED: EPOETIN ALFA 10,000 UNIT/1 ML VIAL SQ ONE (13:00)
[2016-08-17] MEDS: CEFTRIAXONE 50 ML IVPB SCH (13:35)
--- NOTE | 2016-08-17 13:47 | PN ---
Progress Note (short form) - Note Progress Note: Renal Follow up for SHARI Pt seen and examined at the bedside awake and alert no acute complaints reports that vaginal discomfort is improved hernandez in place to get PRBC transfusion Discussed case with Clare Thompson [phone] ext [phone] [facility] who are [employer] legal gardians and told that that she would likely need a kidney biopsy and blood transfusion. She gave consent for both. Vital Signs Temperature 98.2 F 08/17/16 11:33 Pulse Rate 74 08/17/16 11:33 Respiratory Rate 16 08/17/16 11:33 Blood Pressure 160/60 08/17/16 11:33 O2 Sat by Pulse Oximetry (%) 94 L 08/17/16 09:00 Intake & Output 08/14/16 08/15/16 08/16/16 08/17/16 23:59 23:59 23:59 23:59 Intake Total 100 320 600 120 Output Total 550 400 Balance 100 320 50 -280 Weight 118 lb Gen: NAD, AAOx3 HEENT: NC/AT, MMM No JVD CVS: RRR, No M/R Lungs: CTA Abd: soft NT/ND Ext: No edema, clubbing or cyanosis : Hernandez in place CBC, BMP 08/17/16 06:30 08/17/16 06:30 Current Medications Acetaminophen (Tylenol -) 325 mg PO Q6H PRN PRN Reason: PAIN Last Admin: 08/16/16 21:49 Dose: 325 mg Apixaban (Eliquis -) 2.5 mg PO BID [facility] Last Admin: 08/17/16 12:00 Dose: 2.5 mg Calcium Carbonate/Cholecalciferol (Os-Hang 500+D -) 1 tab PO BID [facility] Last Admin: 08/17/16 10:12 Dose: 1 tab Clonidine HCl (Catapres Tts Patch -) 0.1 mg TD Fr@10 [facility] Docusate Sodium (Colace -) 300 mg PO HS [facility] Last Admin: 08/16/16 21:49 Dose: 300 mg Folic Acid (Folic Acid -) 1 mg PO DAILY [facility] Last Admin: 08/17/16 10:11 Dose: 1 mg Hydralazine HCl (Apresoline -) 100 mg PO TID [facility] Last Admin: 08/17/16 13:37 Dose: 100 mg Ceftriaxone Sodium (Rocephin 1gm Ivpb (Pre-Docked)) 50 mls @ 100 mls/hr IVPB DAILY [facility] Last Admin: 08/17/16 13:35 Dose: 100 mls/hr Mirtazapine (Remeron -) 7.5 mg PO HS [facility] Last Admin: 08/16/16 21:47 Dose: 7.5 mg Polyethylene Glycol (Miralax (For Daily Use) -) 17 gm PO DAILY [facility] Last Admin: 08/17/16 10:13 Dose: 17 gm Ranitidine HCl (Zantac -) 150 mg PO BID [facility] Last Admin: 08/17/16 10:11 Dose: 150 mg Risperidone (Risperdal -) 0.25 mg PO HS [facility] Last Admin: 08/16/16 21:48 Dose: 0.25 mg Rivastigmine Tartrate (Exelon (Nf) -) 1.5 mg PO BID [facility] Last Admin: 08/17/16 10:13 Dose: 1.5 mg Senna/Docusate Sodium (Pericolace -) 1 tablet PO [facility] Last Admin: 08/16/16 21:47 Dose: 1 tablet Sodium Bicarbonate (Sodium Bicarbonate -) 650 mg PO BID [facility] Last Admin: 08/17/16 10:11 Dose: 650 mg A/P 70 year old woman that is known to me with PMhx of Dementia, Hypertension, DVT, GERD, Hep C, Anemia, Anxiety, Depression who was sent in from [facility] with worsening renal function. 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
[2016-08-17] MEDS ORDERED: methylPREDNISolone NA SUCC 1000 MG/8 ML VIAL IVPB ONE (14:30)
--- NOTE | 2016-08-17 14:44 | PN ---
Progress Note (short form) - Note Progress Note: ID Comfortable Iv Ceftriaxone Selected Entries 08/15/16 08/15/16 09:00 13:11 Temperature 97.9 F Pulse Rate 96 H Blood Pressure 172/68 Lung Clear Cor S1 S2 ABd soft nontender Microbiology 08/16/16 11:00 Urine - Urine De La Cruz Urine Culture - Preliminary Lactose Fermenting Neg Bacilli Non Lactose Fermenting Gnb 08/14/16 21:55 Blood - Peripheral Venous Blood Culture - Preliminary NO GROWTH OBTAINED AFTER 48 HOURS, INCUBATION TO CONTINUE FOR 3 DAYS. 08/14/16 21:55 Blood - Peripheral Venous Blood Culture - Preliminary NO GROWTH OBTAINED AFTER 48 HOURS, INCUBATION TO CONTINUE FOR 3 DAYS. Laboratory Tests 08/16/16 08/17/16 09:00 06:30 WBC 3.6 L Plt Count 242 Ur Leukocyte Esterase 3+ H Urine RBC 90 Urine WBC 1281 Assessment UTI not toxic appearing Plan As discussed with renal await final c/s then switch to oral therapy for balance of treatment Mahin HUGHES
[2016-08-17] MEDS: SENNOSIDES/DOCUSATE COMBO (SENNA PLUS) TABLET (UD) PO SCH (21:51)
[2016-08-17] MEDS: DOCUSATE SODIUM 100 MG CAPSULE (FP) PO SCH (21:51)
[2016-08-17] MEDS: MIRTAZAPINE 15 MG TABLET (FP) PO SCH (21:52)
[2016-08-17] MEDS: risperiDONE 0.25 MG TABLET (FP) PO SCH (22:45)
[2016-08-18] MEDS: hydrALAZINE HCL 50 MG TABLET (FP) PO SCH ×3 (06:21→23:17)
[2016-08-18 08:23] LABS: MCHC 33.7 g/dl (32.0-36.0); MEAN CELL VOLUME 88.8 fl (80-96); MEAN PLT VOLUME 8.2 fl (7.5-11.1); PLATELET COUNT 292 K/MM3 (134-434); RDW 16.2 % (11.6-15.6); WHITE BLOOD COUNT 3.4 K/mm3 (4.0-10.0)
[2016-08-18 08:37] LABS: INR 1.27 (0.82-1.09)
[2016-08-18 08:53] LABS: ALBUMIN 3.1 g/dl (3.4-5.0); BILIRUBIN,TOTAL 0.6 mg/dL (0.2-1.0); CREATININE 5.4 mg/dL (0.55-1.02); TOT PROT 7.6 g/dl (6.4-8.2); URIC ACID 7.2 mg/dL (2.6-7.2)
[2016-08-18] MEDS: CEFTRIAXONE 50 ML IVPB SCH (10:47)
[2016-08-18] MEDS: cloNIDine-TTS 0.1 MG/24 HRS PATCH.TDWK TD SCH (10:48)
[2016-08-18] MEDS: FOLIC ACID 1 MG TABLET (FP) PO SCH (10:50)
[2016-08-18] MEDS: POLYETHYLENE GLYCOL 3350 119 GM BTL PO SCH (10:50)
[2016-08-18] MEDS: RANITIDINE HCL 150 MG TABLET (FP) PO SCH ×2 (10:50→23:14)
[2016-08-18] MEDS: CALCIUM 500MG/VIT-D 200 UNITS COMBO TABLET (FP) PO SCH ×2 (10:50→23:16)
[2016-08-18] MEDS: SODIUM BICARBONATE 650 MG TABLET PO SCH ×2 (10:50→23:13)
[2016-08-18] MEDS: RIVASTIGMINE TARTRATE 1.5 MG CAPSULE PO SCH ×2 (10:51→23:13)
--- NOTE | 2016-08-18 11:36 | PN ---
Progress Note, Physician Chief Complaint: scheduled for renal biopsy next week aug 22 - Current Medication List Current Medications: Active Medications Acetaminophen (Tylenol -) 325 mg PO Q6H PRN PRN Reason: PAIN Last Admin: 08/16/16 21:49 Dose: 325 mg Calcium Carbonate/Cholecalciferol (Os-Hang 500+D -) 1 tab PO BID [facility] Last Admin: 08/18/16 10:50 Dose: 1 tab Clonidine HCl (Catapres Tts Patch -) 0.1 mg TD Fr@10 [facility] Last Admin: 08/18/16 10:48 Dose: 0.1 mg Docusate Sodium (Colace -) 300 mg PO HS [facility] Last Admin: 08/17/16 21:51 Dose: 300 mg Folic Acid (Folic Acid -) 1 mg PO DAILY [facility] Last Admin: 08/18/16 10:50 Dose: 1 mg Hydralazine HCl (Apresoline -) 100 mg PO TID [facility] Last Admin: 08/18/16 06:21 Dose: 100 mg Ceftriaxone Sodium (Rocephin 1gm Ivpb (Pre-Docked)) 50 mls @ 100 mls/hr IVPB DAILY [facility] Last Admin: 08/18/16 10:47 Dose: 100 mls/hr Mirtazapine (Remeron -) 7.5 mg PO [facility] Last Admin: 08/17/16 21:52 Dose: 7.5 mg Polyethylene Glycol (Miralax (For Daily Use) -) 17 gm PO DAILY [facility] Last Admin: 08/18/16 10:50 Dose: 17 gm Ranitidine HCl (Zantac -) 150 mg PO BID [facility] Last Admin: 08/18/16 10:50 Dose: 150 mg Risperidone (Risperdal -) 0.25 mg PO HS [facility] Last Admin: 08/17/16 22:45 Dose: 0.25 mg Rivastigmine Tartrate (Exelon (Nf) -) 1.5 mg PO BID [facility] Last Admin: 08/18/16 10:51 Dose: 1.5 mg Senna/Docusate Sodium (Pericolace -) 1 tablet PO HS [facility] Last Admin: 08/17/16 21:51 Dose: 1 tablet Sodium Bicarbonate (Sodium Bicarbonate -) 650 mg PO BID [facility] Last Admin: 08/18/16 10:50 Dose: 650 mg - Objective Vital Signs: Vital Signs Temperature 99.0 F 08/18/16 09:39 Pulse Rate 83 08/18/16 09:39 Respiratory Rate 20 08/18/16 09:39 Blood Pressure 193/81 08/18/16 09:39 O2 Sat by Pulse Oximetry (%) 95 08/17/16 21:00 Constitutional: Yes: Calm Eyes: Yes: WNL HENT: Yes: WNL Neck: Yes: WNL Cardiovascular: Yes: Pulse Irregular Respiratory: Yes: WNL Gastrointestinal: Yes: WNL Musculoskeletal: Yes: Back Pain Extremities: Yes: WNL Edema: No Peripheral Pulses WNL: Yes Integumentary: Yes: WNL Neurological: Yes: Pre-Existing Deficit ...Motor Strength: WNL Psychiatric: Yes: Agitated Labs: CBC, BMP 08/18/16 07:15 08/18/16 07:15 INR, PTT INR 1.27 (0.82-1.09) H 08/18/16 07:15 Problem List - Problems (1) Acute renal failure Code(s): N17.9 - ACUTE KIDNEY FAILURE, UNSPECIFIED Qualifiers: Acute renal failure type: unspecified Qualified Code(s): N17.9 - Acute kidney failure, unspecified (2) Dehydration Code(s): E86.0 - DEHYDRATION (3) Dementia Code(s): F03.90 - UNSPECIFIED DEMENTIA WITHOUT BEHAVIORAL DISTURBANCE Qualifiers: Dementia type: unspecified type Dementia behavioral disturbance: without behavioral disturbance Qualified Code(s): F03.90 - Unspecified dementia without behavioral disturbance (4) Failure to thrive in adult Code(s): R62.7 - ADULT FAILURE TO THRIVE (5) UTI (urinary tract infection) Code(s): N39.0 - URINARY TRACT INFECTION, SITE NOT SPECIFIED (6) Anemia Code(s): D64.9 - ANEMIA, UNSPECIFIED Qualifiers: Anemia type: unspecified type Qualified Code(s): D64.9 - Anemia, unspecified (7) Chronic kidney disease (CKD), stage III (moderate) Code(s): N18.3 - CHRONIC KIDNEY DISEASE, STAGE 3 (MODERATE) (8) DVT (deep venous thrombosis) Code(s): I82.409 - ACUTE EMBOLISM AND THOMBOS UNSP DEEP VN UNSP LOWER EXTREMITY (9) Mood disorder Code(s): F39 - UNSPECIFIED MOOD [AFFECTIVE] DISORDER Assessment/Plan TRANSFUSE PRBC OVER NIGHT, H/H IMPROVED HEME/ONC CONSULT OCCULT STOOL RENAL EVAL START EPOGEN 10,000 Q WEEKLY RENAL BIOPSY Aug HOLDS TOREYRELTO Jul
--- NOTE | 2016-08-18 12:47 | PN ---
Progress Note (short form) - Note Progress Note: Renal Follow up for SHARI Pt seen and examined at the bedside no acute complaints denies any N/V/D denies any sob, chest pain Vital Signs Temperature 99.0 F 08/18/16 09:39 Pulse Rate 83 08/18/16 09:39 Respiratory Rate 20 08/18/16 09:39 Blood Pressure 193/81 08/18/16 09:39 O2 Sat by Pulse Oximetry (%) 95 08/17/16 21:00 Intake & Output 08/15/16 08/16/16 08/17/16 08/18/16 23:59 23:59 23:59 23:59 Intake Total 867 946 1430 450 Output Total 550 1000 200 Balance 320 50 160 250 Gen: NAD HEENT: NC/AT, MMM No JVD CVS: RRR, No M/R Lungs: CTA Abd: soft NT/ND Ext: No edema, clubbing or cyanosis : De La Cruz in place CBC, BMP 08/18/16 07:15 08/18/16 07:15 Current Medications Acetaminophen (Tylenol -) 325 mg PO Q6H PRN PRN Reason: PAIN Last Admin: 08/16/16 21:49 Dose: 325 mg Calcium Carbonate/Cholecalciferol (Os-Hang 500+D -) 1 tab PO BID [facility] Last Admin: 08/18/16 10:50 Dose: 1 tab Clonidine HCl (Catapres Tts Patch -) 0.1 mg TD Fr@10 [facility] Last Admin: 08/18/16 10:48 Dose: 0.1 mg Docusate Sodium (Colace -) 300 mg PO HS [facility] Last Admin: 08/17/16 21:51 Dose: 300 mg Folic Acid (Folic Acid -) 1 mg PO DAILY [facility] Last Admin: 08/18/16 10:50 Dose: 1 mg Hydralazine HCl (Apresoline -) 100 mg PO TID [facility] Last Admin: 08/18/16 06:21 Dose: 100 mg Ceftriaxone Sodium (Rocephin 1gm Ivpb (Pre-Docked)) 50 mls @ 100 mls/hr IVPB DAILY [facility] Last Admin: 08/18/16 10:47 Dose: 100 mls/hr Mirtazapine (Remeron -) 7.5 mg PO HS [facility] Last Admin: 08/17/16 21:52 Dose: 7.5 mg Polyethylene Glycol (Miralax (For Daily Use) -) 17 gm PO DAILY [facility] Last Admin: 08/18/16 10:50 Dose: 17 gm Ranitidine HCl (Zantac -) 150 mg PO BID [facility] Last Admin: 08/18/16 10:50 Dose: 150 mg Risperidone (Risperdal -) 0.25 mg PO HS [facility] Last Admin: 08/17/16 22:45 Dose: 0.25 mg Rivastigmine Tartrate (Exelon (Nf) -) 1.5 mg PO BID [facility] Last Admin: 08/18/16 10:51 Dose: 1.5 mg Senna/Docusate Sodium (Pericolace -) 1 tablet PO HS [facility] Last Admin: 08/17/16 21:51 Dose: 1 tablet Sodium Bicarbonate (Sodium Bicarbonate -) 650 mg PO BID [facility] Last Admin: 08/18/16 10:50 Dose: 650 mg A/P 70 year old woman that is known to me with PMhx of Dementia, Hypertension, DVT, GERD, Hep C, Anemia, Anxiety, Depression who was sent in from [facility] with worsening renal function. 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
--- NOTE | 2016-08-18 13:46 | PN ---
Progress Note (short form) - Note Progress Note: alert, no complaints Vital Signs Period Temp Pulse Resp BP Sys/Zarate Pulse Ox Last 24 Hr 98.2 F-99.0 F 80-83 17-20 128-193/80-90 95 cor-rrr lungs clear abd soft,nt ext no edema +hernandez CBC, BMP 08/18/16 07:15 08/18/16 07:15 Microbiology 08/16/16 11:00 Urine - Urine Hernandez Urine Culture - Preliminary Escherichia Coli Escherichia Coli#2 08/14/16 21:55 Blood - Peripheral Venous Blood Culture - Preliminary NO GROWTH OBTAINED AFTER 72 HOURS, INCUBATION TO CONTINUE FOR 2 DAYS. 08/14/16 21:55 Blood - Peripheral Venous Blood Culture - Preliminary NO GROWTH OBTAINED AFTER 72 HOURS, INCUBATION TO CONTINUE FOR 2 DAYS. a/p timi- per renal uti- ecoli, switch to po ceftin dementia please call back if needed Problem List - Problems (1) Acute renal failure Code(s): N17.9 - ACUTE KIDNEY FAILURE, UNSPECIFIED Qualifiers: Acute renal failure type: unspecified Qualified Code(s): N17.9 - Acute kidney failure, unspecified (2) UTI (urinary tract infection) Code(s): N39.0 - URINARY TRACT INFECTION, SITE NOT SPECIFIED (3) Dementia Code(s): F03.90 - UNSPECIFIED DEMENTIA WITHOUT BEHAVIORAL DISTURBANCE Qualifiers: Dementia type: unspecified type Dementia behavioral disturbance: without behavioral disturbance Qualified Code(s): F03.90 - Unspecified dementia without behavioral disturbance
[2016-08-18 14:12] LABS: C-ANCA <1:20 titer (Neg:<1:20); MYELOPEROXIDASE ANTIBODY 56.8 U/mL (0.0-9.0); P-ANCA >1:640 titer (Neg:<1:20); PROTEINASE-3 ANTIBODY 36.8 U/mL (0.0-3.5)
--- NOTE | 2016-08-18 16:19 | CONSULT ---
Consult - text type - Consultation Consultation Note: This is a 70 year old woman with PMhx of Dementia, Hypertension, DVT, GERD, Hep C, Anemia, Anxiety, Depression who was sent in from [facility] with worsening renal function. S/p recent hospital admission with Anemia and SHARI . Patient is ncoherent, confused. Says she is unwell. Inable to converse due to dementia PMhx: as above Allergies: NKDA Family Hx: NC Social Hx: Unknown ROS: as per HPI, all other ROS negative Home Meds: Medication Instructions Recorded Acetaminophen 325 mg PO Q6H PRN 07/14/16 Clonidine Patch [Catapres Tts 0.1 mg TD WEEKLY 07/14/16 Patch -] Docusate Sodium 300 mg PO HS 07/14/16 Folic Acid 1 mg PO DAILY 07/14/16 Hydralazine HCl 100 mg PO Q8H 07/14/16 Polyethylene Glycol 3350 [Miralax 17 gm PO DAILY 07/14/16 119 gm Btl -] Ranitidine HCl [Zantac] 150 mg PO BID 07/14/16 Rivastigmine Tartrate 1.5 mg PO BID 07/14/16 [Rivastigmine] Sennosides/Docusate Sodium [Senna 1 each PO HS 07/14/16 Laxative Tablet] Apixaban [Eliquis] 2.5 mg PO BID #30 tablet 07/20/16 Mirtazapine [Remeron -] 7.5 mg PO HS tablet 07/20/16 Calcium Carbonate/Vitamin D3 1 tab PO BID 08/14/16 [Oyster Shell 500-Vit D3 200 Tb] Risperidone 1 tab PO HS 08/14/16 Last Vital Signs Temp Pulse Resp BP Pulse Ox 98.4 F 77 20 163/86 95 08/18/16 15:41 08/18/16 15:41 08/18/16 09:39 08/18/16 15:41 08/18/16 09:00 Gen: NAD HEENT: NC/AT, MMM CVS: RRR, No M/R Lungs: CTA Abd: soft NT/ND Ext: No edema, clubbing or cyanosis : No bladder distension Abnormal Lab Results 08/15/16 08/17/16 08/18/16 10:50 12:15 07:15 WBC 3.4 L RBC 3.33 L D Hgb 10.0 L D Hct 29.5 L D RDW 16.2 H INR Carbon Dioxide BUN Creatinine Random Glucose ALT LD Total Albumin Proteinase 3 (PR3) 36.8 H p-ANCA >1:640 H Myeloperoxidase Ab 56.8 H Crossmatch See Detail 08/18/16 08/18/16 07:15 07:15 WBC RBC Hgb Hct RDW INR 1.27 H Carbon Dioxide 20 L BUN 45 H Creatinine 5.4 H Random Glucose 162 H D ALT 10 L D LD Total 269 H Albumin 3.1 L Proteinase 3 (PR3) p-ANCA Myeloperoxidase Ab Crossmatch Current Medications Acetaminophen (Tylenol -) 325 mg PO Q6H PRN PRN Reason: PAIN Last Admin: 08/16/16 21:49 Dose: 325 mg Calcium Carbonate/Cholecalciferol (Os-Hang 500+D -) 1 tab PO BID [facility] Last Admin: 08/18/16 10:50 Dose: 1 tab Cefuroxime Axetil (Ceftin -) 250 mg PO DAILY [facility] Clonidine HCl (Catapres Tts Patch -) 0.1 mg TD Fr@10 [facility] Last Admin: 08/18/16 10:48 Dose: 0.1 mg Docusate Sodium (Colace -) 300 mg PO [facility] Last Admin: 08/17/16 21:51 Dose: 300 mg Folic Acid (Folic Acid -) 1 mg PO DAILY [facility] Last Admin: 08/18/16 10:50 Dose: 1 mg Hydralazine HCl (Apresoline -) 100 mg PO TID [facility] Last Admin: 08/18/16 14:26 Dose: 100 mg Mirtazapine (Remeron -) 7.5 mg PO [facility] Last Admin: 08/17/16 21:52 Dose: 7.5 mg Polyethylene Glycol (Miralax (For Daily Use) -) 17 gm PO DAILY [facility] Last Admin: 08/18/16 10:50 Dose: 17 gm Ranitidine HCl (Zantac -) 150 mg PO BID [facility] Last Admin: 08/18/16 10:50 Dose: 150 mg Risperidone (Risperdal -) 0.25 mg PO [facility] Last Admin: 08/17/16 22:45 Dose: 0.25 mg Rivastigmine Tartrate (Exelon (Nf) -) 1.5 mg PO BID [facility] Last Admin: 08/18/16 10:51 Dose: 1.5 mg Senna/Docusate Sodium (Pericolace -) 1 tablet PO HS [facility] Last Admin: 08/17/16 21:51 Dose: 1 tablet Sodium Bicarbonate (Sodium Bicarbonate -) 650 mg PO BID [facility] Last Admin: 08/18/16 10:50 Dose: 650 mg A/P 70 year old woman with PMhx of Dementia, Hypertension, DVT, GERD, Hep C, Anemia , Anxiety, Depression who was sent in from [facility] with worsening renal function.Also with UTI h/o RLE DVT 11/01 --?/ recurrent at that time--s/p ivc filter. has been on eliquis. Last dose --08/17--2.5mg bid would consider heparin drip once eliquis has been held for 24-48hrs. check base line coags anemia--anemia of chronic disease?---due to SHARI from autoimmune pathology---++/ KAIDEN/++ ANCA stooloccult --neg. iron studies c/w anemia of chronic disease kristi/haptoglobin--nl--unlikely hemolysis. LDH--269 SIFE--faint band s/p PRBCs
[2016-08-18] MEDS: ACETAMINOPHEN 325 MG TABLET (FP) PO PRN ×2 (17:48→23:13)
[2016-08-18] MEDS: SENNOSIDES/DOCUSATE COMBO (SENNA PLUS) TABLET (UD) PO SCH (23:14)
[2016-08-18] MEDS: MIRTAZAPINE 15 MG TABLET (FP) PO SCH (23:15)
[2016-08-18] MEDS: risperiDONE 0.25 MG TABLET (FP) PO SCH (23:16)
[2016-08-18] MEDS: DOCUSATE SODIUM 100 MG CAPSULE (FP) PO SCH (23:16)
[2016-08-19] MEDS: hydrALAZINE HCL 50 MG TABLET (FP) PO SCH (06:05)
[2016-08-19 07:19] LABS: MCH 30.2 pg (25.7-33.7); MCHC 33.9 g/dl (32.0-36.0); MEAN CELL VOLUME 88.8 fl (80-96); MEAN PLT VOLUME 8.1 fl (7.5-11.1); PLATELET COUNT 246 K/MM3 (134-434); RDW 16.2 % (11.6-15.6); WHITE BLOOD COUNT 8.3 K/mm3 (4.0-10.0)
[2016-08-19 07:40] LABS: CALCIUM 9.6 mg/dL (8.5-10.1); CREATININE 5.2 mg/dL (0.55-1.02)
[2016-08-19 08:07] LABS: COMPLEMENT C3 60 mg/dL (82-167); COMPLEMENT C4 16 mg/dL (14-44)
[2016-08-19 08:13] LABS: INR 1.03 (0.82-1.09); PROTHROMBIN TIME (PATIENT) 11.3 SEC (9.98-11.88)
[2016-08-19 08:15] LABS: ACTIVATED PTT 33.7 SECONDS (26.9-34.4)
[2016-08-19] MEDS ORDERED: methylPREDNISolone NA SUCC 1000 MG/8 ML VIAL IVPB ONE (10:29)
[2016-08-19] MEDS ORDERED: PT OWN MED DRAWER 7, Y5N ONE ×2 (10:40→21:38)
[2016-08-19] MEDS: RANITIDINE HCL 150 MG TABLET (FP) PO SCH ×2 (10:42→21:33)
[2016-08-19] MEDS: FOLIC ACID 1 MG TABLET (FP) PO SCH (10:42)
[2016-08-19] MEDS: SODIUM BICARBONATE 650 MG TABLET PO SCH ×2 (10:43→21:35)
[2016-08-19] MEDS: CALCIUM 500MG/VIT-D 200 UNITS COMBO TABLET (FP) PO SCH ×2 (10:43→21:35)
[2016-08-19] MEDS: RIVASTIGMINE TARTRATE 1.5 MG CAPSULE PO SCH ×2 (10:43→21:33)
[2016-08-19] MEDS: POLYETHYLENE GLYCOL 3350 119 GM BTL PO SCH (10:43)
[2016-08-19] MEDS: CEFUROXIME AXETIL 250 MG TABLET PO SCH (10:43)
--- NOTE | 2016-08-19 11:08 | PN ---
Progress Note (short form) - Note Progress Note: Renal Follow up for SHARI Pt seen and examined at the bedside no complaints denies any abd pain, sob, chest pain, N/V/D Vital Signs Temperature 98.6 F 08/19/16 09:25 Pulse Rate 67 08/19/16 09:25 Respiratory Rate 18 08/19/16 09:25 Blood Pressure 193/78 08/19/16 09:25 O2 Sat by Pulse Oximetry (%) 95 08/18/16 22:00 Intake & Output 08/16/16 08/17/16 08/18/16 08/19/16 23:59 23:59 23:59 23:59 Intake Total 600 1160 840 Output Total 550 1000 500 500 Balance 50 160 340 -500 Gen: NAD HEENT: NC/AT, MMM No JVD CVS: RRR, No M/R Lungs: CTA Abd: soft NT/ND Ext: No edema, clubbing or cyanosis : De La Cruz in place CBC, BMP 08/19/16 05:50 08/19/16 05:50 Laboratory Tests 08/15/16 08/17/16 08/19/16 10:50 20:15 05:50 Calcium 9.6 KAIDEN Screen Positive H KAIDEN Homogeneous Pattern 1:1280 H Proteinase 3 (PR3) 36.8 H p-ANCA >1:640 H Atypical p-ANCA <1:20 Myeloperoxidase Ab 56.8 H Complement C3 60 L Complement C4 16 Current Medications Acetaminophen (Tylenol -) 325 mg PO Q6H PRN PRN Reason: PAIN Last Admin: 08/18/16 23:13 Dose: 325 mg Calcium Carbonate/Cholecalciferol (Os-Hang 500+D -) 1 tab PO BID [facility] Last Admin: 08/19/16 10:43 Dose: 1 tab Cefuroxime Axetil (Ceftin -) 250 mg PO DAILY [facility] Last Admin: 08/19/16 10:43 Dose: 250 mg Clonidine HCl (Catapres Tts Patch -) 0.1 mg TD Fr@10 [facility] Last Admin: 08/18/16 10:48 Dose: 0.1 mg Docusate Sodium (Colace -) 300 mg PO HS [facility] Last Admin: 08/18/16 23:16 Dose: 300 mg Folic Acid (Folic Acid -) 1 mg PO DAILY [facility] Last Admin: 08/19/16 10:42 Dose: 1 mg Hydralazine HCl (Apresoline -) 100 mg PO TID [facility] Last Admin: 08/19/16 06:05 Dose: 100 mg Mirtazapine (Remeron -) 7.5 mg PO [facility] Last Admin: 08/18/16 23:15 Dose: 7.5 mg Polyethylene Glycol (Miralax (For Daily Use) -) 17 gm PO DAILY [facility] Last Admin: 08/19/16 10:43 Dose: 17 gm Ranitidine HCl (Zantac -) 150 mg PO BID [facility] Last Admin: 08/19/16 10:42 Dose: 150 mg Risperidone (Risperdal -) 0.25 mg PO HS [facility] Last Admin: 08/18/16 23:16 Dose: 0.25 mg Rivastigmine Tartrate (Exelon (Nf) -) 1.5 mg PO BID [facility] Last Admin: 08/19/16 10:43 Dose: 1.5 mg Senna/Docusate Sodium (Pericolace -) 1 tablet PO [facility] Last Admin: 08/18/16 23:14 Dose: 1 tablet Sodium Bicarbonate (Sodium Bicarbonate -) 650 mg PO BID [facility] Last Admin: 08/19/16 10:43 Dose: 650 mg A/P 70 year old woman that is known to me with PMhx of Dementia, Hypertension, DVT, GERD, Hep C, Anemia, Anxiety, Depression who was sent in from [facility] with worsening renal function. 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
[2016-08-19] MEDS ORDERED: POTASSIUM CHLORIDE 40 MEQ/30 ML UNIT DOSE CUP PO ONE (11:30)
[2016-08-19] MEDS ORDERED: NIFEdipine E.R. 30 MG TABLET (FP) PO SCH (11:30)
--- NOTE | 2016-08-19 13:51 | PN ---
Progress Note, Physician - Current Medication List Current Medications: Active Medications Acetaminophen (Tylenol -) 325 mg PO Q6H PRN PRN Reason: PAIN Last Admin: 08/18/16 23:13 Dose: 325 mg Calcium Carbonate/Cholecalciferol (Os-Hang 500+D -) 1 tab PO BID [facility] Last Admin: 08/19/16 10:43 Dose: 1 tab Cefuroxime Axetil (Ceftin -) 250 mg PO DAILY [facility] Last Admin: 08/19/16 10:43 Dose: 250 mg Clonidine HCl (Catapres Tts Patch -) 0.1 mg TD Fr@10 [facility] Last Admin: 08/18/16 10:48 Dose: 0.1 mg Docusate Sodium (Colace -) 300 mg PO HS [facility] Last Admin: 08/18/16 23:16 Dose: 300 mg Folic Acid (Folic Acid -) 1 mg PO DAILY [facility] Last Admin: 08/19/16 10:42 Dose: 1 mg Mirtazapine (Remeron -) 7.5 mg PO HS [facility] Last Admin: 08/18/16 23:15 Dose: 7.5 mg Nifedipine (Procardia Xl -) 30 mg PO DAILY [facility] Last Admin: 08/19/16 12:06 Dose: 30 mg Polyethylene Glycol (Miralax (For Daily Use) -) 17 gm PO DAILY [facility] Last Admin: 08/19/16 10:43 Dose: 17 gm Ranitidine HCl (Zantac -) 150 mg PO BID [facility] Last Admin: 08/19/16 10:42 Dose: 150 mg Risperidone (Risperdal -) 0.25 mg PO HS [facility] Last Admin: 08/18/16 23:16 Dose: 0.25 mg Rivastigmine Tartrate (Exelon (Nf) -) 1.5 mg PO BID [facility] Last Admin: 08/19/16 10:43 Dose: 1.5 mg Senna/Docusate Sodium (Pericolace -) 1 tablet PO [facility] Last Admin: 08/18/16 23:14 Dose: 1 tablet Sodium Bicarbonate (Sodium Bicarbonate -) 650 mg PO BID [facility] Last Admin: 08/19/16 10:43 Dose: 650 mg - Objective Vital Signs: Vital Signs Temperature 98.6 F 08/19/16 09:25 Pulse Rate 67 08/19/16 09:25 Respiratory Rate 18 08/19/16 09:25 Blood Pressure 193/78 08/19/16 09:25 O2 Sat by Pulse Oximetry (%) 95 08/18/16 22:00 Neck: Yes: Supple Cardiovascular: Yes: Regular Rate and Rhythm Respiratory: Yes: Regular, CTA Bilaterally Gastrointestinal: Yes: Normal Bowel Sounds, Soft Edema: No Neurological: Yes: Alert Labs: CBC, BMP 08/19/16 05:50 08/19/16 05:50 INR, PTT INR 1.03 (0.82-1.09) 08/19/16 05:50 Problem List - Problems (1) Acute renal failure Assessment/Plan: PER RENAL 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
[2016-08-19] MEDS ORDERED: HEPARIN NA (PORCINE) 5,000 UNITS/ML 1ML VIAL IVPUSH PRN ×2 (14:11)
[2016-08-19] MEDS: SENNOSIDES/DOCUSATE COMBO (SENNA PLUS) TABLET (UD) PO SCH (21:31)
[2016-08-19] MEDS: DOCUSATE SODIUM 100 MG CAPSULE (FP) PO SCH (21:36)
[2016-08-19] MEDS: MIRTAZAPINE 15 MG TABLET (FP) PO SCH (21:37)
[2016-08-19] MEDS: risperiDONE 0.25 MG TABLET (FP) PO SCH (21:38)
[2016-08-20] MEDS: ACETAMINOPHEN 325 MG TABLET (FP) PO PRN ×2 (03:09→21:34)
[2016-08-20] MEDS: HEPARIN INFUSION - 500 ML IVPB SCH ×2 (05:51→17:14)
[2016-08-20 08:12] LABS: BASOPHIL 0.2 % (0-2.0); MCH 30.3 pg (25.7-33.7); MCHC 34.1 g/dl (32.0-36.0); MEAN PLT VOLUME 8.1 fl (7.5-11.1); NEUTROPHILS 79.3 % (42.8-82.8); PLATELET COUNT 216 K/MM3 (134-434); RDW 15.8 % (11.6-15.6); WHITE BLOOD COUNT 7.4 K/mm3 (4.0-10.0)
[2016-08-20 08:32] LABS: ALBUMIN 2.7 g/dl (3.4-5.0); BILIRUBIN,TOTAL 0.4 mg/dL (0.2-1.0); CALCIUM 8.6 mg/dL (8.5-10.1); CREATININE 4.5 mg/dL (0.55-1.02); MAGNESIUM 1.6 mg/dL (1.8-2.4); PHOSPHOROUS 3.2 mg/dL (2.5-4.9); TOT PROT 6.4 g/dl (6.4-8.2)
[2016-08-20] MEDS ORDERED: PT OWN MED DRAWER 7, Y5N ONE ×2 (09:29→21:10)
[2016-08-20] MEDS ORDERED: methylPREDNISolone NA SUCC 1000 MG/8 ML VIAL IVPB ONE (09:34)
--- NOTE | 2016-08-20 09:37 | PN ---
Progress Note (short form) - Note Progress Note: Renal Follow up for SHARI Pt seen and examined at the bedside awake and alert more confused BP running high Vital Signs Temperature 98.9 F 08/20/16 08:00 Pulse Rate 70 08/20/16 08:00 Respiratory Rate 18 08/20/16 08:00 Blood Pressure 185/86 08/20/16 08:00 O2 Sat by Pulse Oximetry (%) 95 08/19/16 21:00 Intake & Output 08/17/16 08/18/16 08/19/16 08/20/16 23:59 23:59 23:59 23:59 Intake Total 1160 840 490 Output Total 2811 808 9882 900 Balance 160 340 -610 -900 Gen: NAD HEENT: NC/AT, MMM No JVD CVS: RRR, No M/R Lungs: CTA Abd: soft NT/ND Ext: No edema, clubbing or cyanosis : De La Cruz in place CBC, BMP 08/20/16 07:10 08/20/16 07:10 Laboratory Tests 08/20/16 07:10 Calcium 8.6 Phosphorus 3.2 D Magnesium 1.6 L D Albumin 2.7 L Current Medications Acetaminophen (Tylenol -) 325 mg PO Q6H PRN PRN Reason: PAIN Last Admin: 08/20/16 03:09 Dose: 325 mg Calcium Carbonate/Cholecalciferol (Os-Hang 500+D -) 1 tab PO BID [facility] Last Admin: 08/19/16 21:35 Dose: 1 tab Cefuroxime Axetil (Ceftin -) 250 mg PO DAILY [facility] Last Admin: 08/19/16 10:43 Dose: 250 mg Clonidine HCl (Catapres Tts Patch -) 0.1 mg TD Fr@10 [facility] Last Admin: 08/18/16 10:48 Dose: 0.1 mg Docusate Sodium (Colace -) 300 mg PO HS [facility] Last Admin: 08/19/16 21:36 Dose: 300 mg Folic Acid (Folic Acid -) 1 mg PO DAILY [facility] Last Admin: 08/19/16 10:42 Dose: 1 mg Heparin Sodium (Porcine) (Heparin -) 1,000 unit IVPUSH PRN PRN PRN Reason: Heparin Heparin Sodium (Porcine) (Heparin -) 5,000 unit IVPUSH PRN PRN PRN Reason: Heparin Heparin Sodium/Dextrose (Heparin Infusion -) 500 mls @ 16 mls/hr IVPB TITR [facility] ; 800 UNITS/HR PRN Reason: Protocol Last Admin: 08/20/16 05:51 Dose: 16 mls/hr Methylprednisolone Sodium Succinate (Solu-Medrol -) 500 mg IVPB ONCE ONE Stop: 08/20/16 09:35 Mirtazapine (Remeron -) 7.5 mg PO HS [facility] Last Admin: 08/19/16 21:37 Dose: 7.5 mg Nifedipine (Procardia Xl -) 60 mg PO DAILY [facility] Polyethylene Glycol (Miralax (For Daily Use) -) 17 gm PO DAILY [facility] Last Admin: 08/19/16 10:43 Dose: 17 gm Ranitidine HCl (Zantac -) 150 mg PO BID [facility] Last Admin: 08/19/16 21:33 Dose: 150 mg Risperidone (Risperdal -) 0.25 mg PO HS [facility] Last Admin: 08/19/16 21:38 Dose: 0.25 mg Rivastigmine Tartrate (Exelon (Nf) -) 1.5 mg PO BID [facility] Last Admin: 08/19/16 21:33 Dose: 1.5 mg Senna/Docusate Sodium (Pericolace -) 1 tablet PO HS [facility] Last Admin: 08/19/16 21:31 Dose: 1 tablet Sodium Bicarbonate (Sodium Bicarbonate -) 650 mg PO BID [facility] Last Admin: 08/19/16 21:35 Dose: 650 mg A/P 70 year old woman that is known to me with PMhx of Dementia, Hypertension, DVT, GERD, Hep C, Anemia, Anxiety, Depression who was sent in from [facility] with worsening renal function. 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
[2016-08-20] MEDS ORDERED: MAGNESIUM SULF 50% (8.12 MEQ/2 ML-1 GM VIAL) IVPB ONE (09:45)
--- NOTE | 2016-08-20 10:33 | PN ---
Progress Note, Physician History of Present Illness: CONFUSED - Current Medication List Current Medications: Active Medications Acetaminophen (Tylenol -) 325 mg PO Q6H PRN PRN Reason: PAIN Last Admin: 08/20/16 03:09 Dose: 325 mg Calcium Carbonate/Cholecalciferol (Os-Hang 500+D -) 1 tab PO BID [facility] Last Admin: 08/19/16 21:35 Dose: 1 tab Cefuroxime Axetil (Ceftin -) 250 mg PO DAILY [facility] Last Admin: 08/19/16 10:43 Dose: 250 mg Clonidine HCl (Catapres Tts Patch -) 0.1 mg TD Fr@10 [facility] Last Admin: 08/18/16 10:48 Dose: 0.1 mg Docusate Sodium (Colace -) 300 mg PO HS [facility] Last Admin: 08/19/16 21:36 Dose: 300 mg Folic Acid (Folic Acid -) 1 mg PO DAILY [facility] Last Admin: 08/19/16 10:42 Dose: 1 mg Heparin Sodium (Porcine) (Heparin -) 1,000 unit IVPUSH PRN PRN PRN Reason: Heparin Heparin Sodium (Porcine) (Heparin -) 5,000 unit IVPUSH PRN PRN PRN Reason: Heparin Heparin Sodium/Dextrose (Heparin Infusion -) 500 mls @ 16 mls/hr IVPB TITR [facility] ; 800 UNITS/HR PRN Reason: Protocol Last Admin: 08/20/16 05:51 Dose: 16 mls/hr Mirtazapine (Remeron -) 7.5 mg PO HS [facility] Last Admin: 08/19/16 21:37 Dose: 7.5 mg Nifedipine (Procardia Xl -) 60 mg PO DAILY [facility] Polyethylene Glycol (Miralax (For Daily Use) -) 17 gm PO DAILY [facility] Last Admin: 08/19/16 10:43 Dose: 17 gm Ranitidine HCl (Zantac -) 150 mg PO BID [facility] Last Admin: 08/19/16 21:33 Dose: 150 mg Risperidone (Risperdal -) 0.25 mg PO [facility] Last Admin: 08/19/16 21:38 Dose: 0.25 mg Rivastigmine Tartrate (Exelon (Nf) -) 1.5 mg PO BID [facility] Last Admin: 08/19/16 21:33 Dose: 1.5 mg Senna/Docusate Sodium (Pericolace -) 1 tablet PO [facility] Last Admin: 08/19/16 21:31 Dose: 1 tablet Sodium Bicarbonate (Sodium Bicarbonate -) 650 mg PO BID [facility] Last Admin: 08/19/16 21:35 Dose: 650 mg - Objective Vital Signs: Vital Signs Temperature 98.9 F 08/20/16 08:00 Pulse Rate 70 08/20/16 08:00 Respiratory Rate 18 08/20/16 08:00 Blood Pressure 185/86 08/20/16 08:00 O2 Sat by Pulse Oximetry (%) 95 08/19/16 21:00 Cardiovascular: Yes: Regular Rate and Rhythm Respiratory: Yes: Regular, CTA Bilaterally Gastrointestinal: Yes: Normal Bowel Sounds, Soft Edema: No Neurological: Yes: Alert, Confusion Labs: CBC, BMP 08/20/16 07:10 08/20/16 07:10 INR, PTT INR 1.03 (0.82-1.09) 08/19/16 05:50 Problem List - Problems (1) Acute renal failure Assessment/Plan: PER RENAL 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 because of possibility of medication induced lupus Code(s): N17.9 - ACUTE KIDNEY FAILURE, UNSPECIFIED Qualifiers: Acute renal failure type: unspecified Qualified Code(s): N17.9 - Acute kidney failure, unspecified (2) DVT (deep venous thrombosis) Assessment/Plan: OFF ELIQUIS START HEPARIN Code(s): I82.409 - ACUTE EMBOLISM AND THOMBOS UNSP DEEP VN UNSP LOWER EXTREMITY (3) Dementia Assessment/Plan: CT OF HEAD Code(s): F03.90 - UNSPECIFIED DEMENTIA WITHOUT BEHAVIORAL DISTURBANCE Qualifiers: Dementia type: unspecified type Dementia behavioral disturbance: without behavioral disturbance Qualified Code(s): F03.90 - Unspecified dementia without behavioral disturbance
[2016-08-20] MEDS: CALCIUM 500MG/VIT-D 200 UNITS COMBO TABLET (FP) PO SCH ×2 (11:05→21:34)
[2016-08-20] MEDS: SODIUM BICARBONATE 650 MG TABLET PO SCH ×2 (11:05→21:35)
[2016-08-20] MEDS: FOLIC ACID 1 MG TABLET (FP) PO SCH (11:06)
[2016-08-20] MEDS: CEFUROXIME AXETIL 250 MG TABLET PO SCH (11:06)
[2016-08-20] MEDS: RIVASTIGMINE TARTRATE 1.5 MG CAPSULE PO SCH ×2 (11:06→21:34)
[2016-08-20] MEDS: RANITIDINE HCL 150 MG TABLET (FP) PO SCH ×2 (11:06→21:34)
[2016-08-20] MEDS: POLYETHYLENE GLYCOL 3350 119 GM BTL PO SCH (11:07)
[2016-08-20] MEDS: NIFEdipine E.R. 30 MG TABLET (FP) PO SCH (11:08)
--- NOTE | 2016-08-20 13:09 | HOSP ---
Subjective - Review of Symptoms Subjective: requested by RN to place peripheral IV for blood transfusion. attempted 2x, unsuccessful as pt is not cooperative Rn to place call to PMD for further instruction Physical Examination Vital Signs: Vital Signs Temperature 98.9 F 08/20/16 08:00 Pulse Rate 70 08/20/16 08:00 Respiratory Rate 18 08/20/16 08:00 Blood Pressure 185/86 08/20/16 08:00 O2 Sat by Pulse Oximetry (%) 95 08/19/16 21:00 Labs: CBC, BMP 08/20/16 07:10 08/20/16 07:10
--- NOTE | 2016-08-20 18:05 | PN ---
Progress Note (short form) - Note Progress Note: Patient seen and examined No new changes clinically Last Vital Signs Temp Pulse Resp BP Pulse Ox 98.5 F 70 20 185/86 96 08/20/16 13:21 08/20/16 13:21 08/20/16 13:21 08/20/16 08:00 08/20/16 09:00 Cor: RSR, No murmurs, No gallops Lungs: Clear to P&A Abd: Soft, Normal bowel sounds, No organomegaly Ext:No significant edema Skin: No rashes, Integument intact Abnormal Lab Results 08/17/16 08/18/16 08/20/16 12:15 07:15 07:10 RBC 2.55 L Hgb 7.7 L D Hct 22.7 L RDW 15.8 H PTT (Actin FS) Carbon Dioxide BUN Creatinine Random Glucose Magnesium AST ALT Albumin Crossmatch See Detail See Detail 08/20/16 08/20/16 07:10 13:10 RBC Hgb Hct RDW PTT (Actin FS) 53.1 H D Carbon Dioxide 20 L BUN 52 H Creatinine 4.5 H Random Glucose 128 H D Magnesium 1.6 L D AST 14 L ALT 11 L Albumin 2.7 L Crossmatch Current Medications Acetaminophen (Tylenol -) 325 mg PO Q6H PRN PRN Reason: PAIN Last Admin: 08/20/16 03:09 Dose: 325 mg Calcium Carbonate/Cholecalciferol (Os-Hang 500+D -) 1 tab PO BID [facility] Last Admin: 08/20/16 11:05 Dose: 1 tab Cefuroxime Axetil (Ceftin -) 250 mg PO DAILY [facility] Last Admin: 08/20/16 11:06 Dose: 250 mg Clonidine HCl (Catapres Tts Patch -) 0.1 mg TD Fr@10 [facility] Last Admin: 08/18/16 10:48 Dose: 0.1 mg Docusate Sodium (Colace -) 300 mg PO HS [facility] Last Admin: 08/19/16 21:36 Dose: 300 mg Folic Acid (Folic Acid -) 1 mg PO DAILY [facility] Last Admin: 08/20/16 11:06 Dose: 1 mg Heparin Sodium (Porcine) (Heparin -) 1,000 unit IVPUSH PRN PRN PRN Reason: Heparin Heparin Sodium (Porcine) (Heparin -) 5,000 unit IVPUSH PRN PRN PRN Reason: Heparin Heparin Sodium/Dextrose (Heparin Infusion -) 500 mls @ 16 mls/hr IVPB TITR [facility] ; 800 UNITS/HR PRN Reason: Protocol Last Admin: 08/20/16 17:14 Dose: 16 mls/hr Mirtazapine (Remeron -) 7.5 mg PO HS [facility] Last Admin: 08/19/16 21:37 Dose: 7.5 mg Nifedipine (Procardia Xl -) 60 mg PO DAILY [facility] Last Admin: 08/20/16 11:08 Dose: 60 mg Polyethylene Glycol (Miralax (For Daily Use) -) 17 gm PO DAILY [facility] Last Admin: 08/20/16 11:07 Dose: 17 gm Ranitidine HCl (Zantac -) 150 mg PO BID [facility] Last Admin: 08/20/16 11:06 Dose: 150 mg Risperidone (Risperdal -) 0.25 mg PO HS [facility] Last Admin: 08/19/16 21:38 Dose: 0.25 mg Rivastigmine Tartrate (Exelon (Nf) -) 1.5 mg PO BID [facility] Last Admin: 08/20/16 11:06 Dose: 1.5 mg Senna/Docusate Sodium (Pericolace -) 1 tablet PO [facility] Last Admin: 08/19/16 21:31 Dose: 1 tablet Sodium Bicarbonate (Sodium Bicarbonate -) 650 mg PO BID [facility] Last Admin: 08/20/16 11:05 Dose: 650 mg A/P 70 year old woman with PMhx of Dementia, Hypertension, DVT, GERD, Hep C, Anemia , Anxiety, Depression who was sent in from [facility] with worsening renal function.Also with UTI h/o RLE DVT 11/01 --?/ recurrent at that time--s/p ivc filter. has been on eliquis. Last dose --08/17--2.5mg bid on heparin drip anemia--anemia of chronic disease?---due to SHARI from autoimmune pathology---++/ KAIDEN/++ ANCA stooloccult --neg. iron studies c/w anemia of chronic disease kristi/haptoglobin--nl--unlikely hemolysis. LDH--269 SIFE--faint band s/p PRBCs will monitor
--- NOTE | 2016-08-20 18:48 | CONSULT ---
Consult Consult Specialty:: Surgery Reason for Consultation:: IV access. - History of Present Illness Chief Complaint: Patient with progressive renal failure, asked to place a central line for blood transfusion . Patient is on a heparin drip. Has an IV access. 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 ) ...: No Psych: Yes: Anxiety, Depression - Alcohol/Substance Use Hx Alcohol Use: No - Smoking History Smoking history: Never smoked Have you smoked in the past 12 months: No Aproximately how many cigarettes per day: 0 If you are a former smoker, when did you quit?: 5 years ago - Social History Usual Living Arrangement: Alone History of Recent Travel: No Home Medications - Allergies Allergies/Adverse Reactions: Allergies Allergy/AdvReac Type Severity Reaction Status Date / Time No Known Allergies Allergy Verified 07/14/16 16:13 - Home Medications Home Medications: Ambulatory Orders Acetaminophen 325 mg PO Q6H PRN 07/14/16 Clonidine Patch [Catapres Tts Patch -] 0.1 mg TD WEEKLY 07/14/16 Docusate Sodium 300 mg PO HS 07/14/16 Folic Acid 1 mg PO DAILY 07/14/16 Hydralazine HCl 100 mg PO Q8H 07/14/16 Polyethylene Glycol 3350 [Miralax 119 gm Btl -] 17 gm PO DAILY 07/14/16 Ranitidine HCl [Zantac] 150 mg PO BID 07/14/16 Rivastigmine Tartrate [Rivastigmine] 1.5 mg PO BID 07/14/16 Sennosides/Docusate Sodium [Senna Laxative Tablet] 1 each PO HS 07/14/16 Apixaban [Eliquis] 2.5 mg PO BID #30 tablet 07/20/16 Mirtazapine [Remeron -] 7.5 mg PO HS tablet 07/20/16 Calcium Carbonate/Vitamin D3 [Oyster Shell 500-Vit D3 200 Tb] 1 tab PO BID 08/14 Risperidone 1 tab PO HS 08/14/16 Physical Exam Vital Signs: Vital Signs Temperature 97.4 F L 01/01/17 18:00 Pulse Rate 57 L 08/20/16 18:00 Respiratory Rate 20 08/20/16 18:00 Blood Pressure 152/61 08/20/16 18:00 O2 Sat by Pulse Oximetry (%) 96 08/20/16 09:00 Cardiovascular: Yes: Other (Patient has multile visible veins in right upper extremity.) Labs: CBC, BMP 08/20/16 07:10 08/20/16 07:10 Problem List - Problems (1) Poor venous access Code(s): I87.8 - OTHER SPECIFIED DISORDERS OF VEINS (2) Acute renal failure Code(s): N17.9 - ACUTE KIDNEY FAILURE, UNSPECIFIED Qualifiers: Acute renal failure type: unspecified Qualified Code(s): N17.9 - Acute kidney failure, unspecified (3) Acute on chronic renal failure (4) Anemia Qualifiers: Qualified Code(s): D64.9 - Anemia, unspecified Assessment/Plan Patient has sufficient visible veins. She is on IV heparin. There is no indication for central venous access. It is also dangerous in patient on continuous heparin drip. Suggest peripheral IV access or ultrasound guided venous access.
[2016-08-20] MEDS ORDERED: PICC LINE 8 ML FLUSH PROTOCOL IVPUSH PRN (19:01)
[2016-08-20] MEDS: SENNOSIDES/DOCUSATE COMBO (SENNA PLUS) TABLET (UD) PO SCH (21:33)
[2016-08-20] MEDS: DOCUSATE SODIUM 100 MG CAPSULE (FP) PO SCH (21:33)
[2016-08-20] MEDS: risperiDONE 0.25 MG TABLET (FP) PO SCH (21:35)
[2016-08-20] MEDS: MIRTAZAPINE 15 MG TABLET (FP) PO SCH (21:36)
--- NOTE | 2016-08-21 08:26 | PN ---
Progress Note (short form) - Note Progress Note: PT to recevie IV Blood/solumedrol, She is currently on IV heparin with a PTT value of 53. 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 We were asked to obtain IV access. She has a functional left Forearm 22G and I was able to place another left hand 22G. There was good blood flow and 10 ml NS was flushed without any difficulty.
[2016-08-21] MEDS: NIFEdipine E.R. 30 MG TABLET (FP) PO SCH ×2 (10:37→21:06)
[2016-08-21] MEDS: SODIUM BICARBONATE 650 MG TABLET PO SCH ×2 (10:37→21:05)
[2016-08-21] MEDS: RANITIDINE HCL 150 MG TABLET (FP) PO SCH ×2 (10:37→21:06)
[2016-08-21] MEDS: CALCIUM 500MG/VIT-D 200 UNITS COMBO TABLET (FP) PO SCH ×2 (10:37→21:06)
[2016-08-21] MEDS: FOLIC ACID 1 MG TABLET (FP) PO SCH (10:40)
[2016-08-21] MEDS: CEFUROXIME AXETIL 250 MG TABLET PO SCH (10:41)
[2016-08-21] MEDS: POLYETHYLENE GLYCOL 3350 119 GM BTL PO SCH (10:41)
[2016-08-21] MEDS: RIVASTIGMINE TARTRATE 1.5 MG CAPSULE PO SCH ×2 (10:41→21:07)
--- NOTE | 2016-08-21 11:28 | PN ---
Progress Note, Physician Chief Complaint: gettign prbc in bed says she is ok - Current Medication List Current Medications: Active Medications Acetaminophen (Tylenol -) 325 mg PO Q6H PRN PRN Reason: PAIN Last Admin: 08/20/16 21:34 Dose: 325 mg Calcium Carbonate/Cholecalciferol (Os-Hang 500+D -) 1 tab PO BID [facility] Last Admin: 08/21/16 10:37 Dose: 1 tab Cefuroxime Axetil (Ceftin -) 250 mg PO DAILY [facility] Last Admin: 08/21/16 10:41 Dose: 250 mg Clonidine HCl (Catapres Tts Patch -) 0.1 mg TD Fr@10 [facility] Last Admin: 08/18/16 10:48 Dose: 0.1 mg Docusate Sodium (Colace -) 300 mg PO HS [facility] Last Admin: 08/20/16 21:33 Dose: 300 mg Folic Acid (Folic Acid -) 1 mg PO DAILY [facility] Last Admin: 08/21/16 10:40 Dose: 1 mg Heparin Sodium (Porcine) (Heparin -) 1,000 unit IVPUSH PRN PRN PRN Reason: Heparin Heparin Sodium (Porcine) (Heparin -) 5,000 unit IVPUSH PRN PRN PRN Reason: Heparin IV Flush (Picc Line Flush) 8 ml IVPUSH PRN PRN PRN Reason: Protocol Heparin Sodium/Dextrose (Heparin Infusion -) 500 mls @ 16 mls/hr IVPB TITR [facility] ; 800 UNITS/HR PRN Reason: Protocol Last Admin: 08/20/16 17:14 Dose: 16 mls/hr Mirtazapine (Remeron -) 7.5 mg PO HS [facility] Last Admin: 08/20/16 21:36 Dose: 7.5 mg Nifedipine (Procardia Xl -) 60 mg PO DAILY [facility] Last Admin: 08/21/16 10:37 Dose: 60 mg Polyethylene Glycol (Miralax (For Daily Use) -) 17 gm PO DAILY [facility] Last Admin: 08/21/16 10:41 Dose: 17 gm Ranitidine HCl (Zantac -) 150 mg PO BID [facility] Last Admin: 08/21/16 10:37 Dose: 150 mg Risperidone (Risperdal -) 0.25 mg PO HS [facility] Last Admin: 08/20/16 21:35 Dose: 0.25 mg Rivastigmine Tartrate (Exelon (Nf) -) 1.5 mg PO BID [facility] Last Admin: 08/21/16 10:41 Dose: 1.5 mg Senna/Docusate Sodium (Pericolace -) 1 tablet PO [facility] Last Admin: 08/20/16 21:33 Dose: 1 tablet Sodium Bicarbonate (Sodium Bicarbonate -) 650 mg PO BID [facility] Last Admin: 08/21/16 10:37 Dose: 650 mg - Objective Vital Signs: Vital Signs Temperature 97.4 F L 08/21/16 05:25 Pulse Rate 62 08/21/16 05:25 Respiratory Rate 20 08/21/16 05:25 Blood Pressure 166/75 08/21/16 05:25 O2 Sat by Pulse Oximetry (%) 96 08/20/16 21:00 Constitutional: Yes: Calm Cardiovascular: Yes: Regular Rate and Rhythm, S1, S2 Respiratory: Yes: CTA Bilaterally Gastrointestinal: Yes: Normal Bowel Sounds, Soft Edema: No Neurological: Yes: Alert, Oriented (to name) Labs: CBC, BMP 08/20/16 07:10 08/20/16 07:10 INR, PTT INR 1.03 (0.82-1.09) 08/19/16 05:50 Problem List - Problems (1) Acute renal failure Assessment/Plan: for biopsy in AM eleiquis on hold npo tonight s/p solumedrol dose creatinine improving on sodium bicarbonate Code(s): N17.9 - ACUTE KIDNEY FAILURE, UNSPECIFIED Qualifiers: Acute renal failure type: unspecified Qualified Code(s): N17.9 - Acute kidney failure, unspecified (2) Dementia Assessment/Plan: rispierdol and rememron Code(s): F03.90 - UNSPECIFIED DEMENTIA WITHOUT BEHAVIORAL DISTURBANCE Qualifiers: Dementia type: unspecified type Dementia behavioral disturbance: without behavioral disturbance Qualified Code(s): F03.90 - Unspecified dementia without behavioral disturbance (3) Poor venous access Assessment/Plan: apreicate surgical consult iv access established Code(s): I87.8 - OTHER SPECIFIED DISORDERS OF VEINS (4) DVT (deep venous thrombosis) Assessment/Plan: iv heparin Code(s): I82.409 - ACUTE EMBOLISM AND THOMBOS UNSP DEEP VN UNSP LOWER EXTREMITY (5) HTN (hypertension) Assessment/Plan: clonidine and procardia Code(s): I10 - ESSENTIAL (PRIMARY) HYPERTENSION (6) Mood disorder Assessment/Plan: risperidol Code(s): F39 - UNSPECIFIED MOOD [AFFECTIVE] DISORDER
--- NOTE | 2016-08-21 12:06 | PN ---
Progress Note (short form) - Note Progress Note: Renal Follow up for SHARI Pt seen and examined at the bedside currently getting blood no sob, chest pain did not get solumederol yesterday no fever or chills Vital Signs Temperature 97.4 F L 08/21/16 05:25 Pulse Rate 62 08/21/16 05:25 Respiratory Rate 20 08/21/16 05:25 Blood Pressure 166/75 08/21/16 05:25 O2 Sat by Pulse Oximetry (%) 96 08/20/16 21:00 Intake & Output 08/18/16 08/19/16 08/20/16 08/21/16 23:59 23:59 23:59 23:59 Intake Total 840 490 492 Output Total 500 1100 2100 600 Balance 340 610 -5822 -600 Gen: NAD HEENT: NC/AT, MMM No JVD CVS: RRR, No M/R Lungs: CTA Abd: soft NT/ND Ext: No edema, clubbing or cyanosis : De La Cruz in place CBC, BMP 08/20/16 07:10 08/20/16 07:10 Current Medications Acetaminophen (Tylenol -) 325 mg PO Q6H PRN PRN Reason: PAIN Last Admin: 08/20/16 21:34 Dose: 325 mg Calcium Carbonate/Cholecalciferol (Os-Hang 500+D -) 1 tab PO BID [facility] Last Admin: 08/21/16 10:37 Dose: 1 tab Cefuroxime Axetil (Ceftin -) 250 mg PO DAILY [facility] Last Admin: 08/21/16 10:41 Dose: 250 mg Clonidine HCl (Catapres Tts Patch -) 0.1 mg TD Fr@10 [facility] Last Admin: 08/18/16 10:48 Dose: 0.1 mg Docusate Sodium (Colace -) 300 mg PO HS [facility] Last Admin: 08/20/16 21:33 Dose: 300 mg Folic Acid (Folic Acid -) 1 mg PO DAILY [facility] Last Admin: 08/21/16 10:40 Dose: 1 mg Heparin Sodium (Porcine) (Heparin -) 1,000 unit IVPUSH PRN PRN PRN Reason: Heparin Heparin Sodium (Porcine) (Heparin -) 5,000 unit IVPUSH PRN PRN PRN Reason: Heparin IV Flush (Picc Line Flush) 8 ml IVPUSH PRN PRN PRN Reason: Protocol Heparin Sodium/Dextrose (Heparin Infusion -) 500 mls @ 16 mls/hr IVPB TITR [facility] ; 800 UNITS/HR PRN Reason: Protocol Last Admin: 08/20/16 17:14 Dose: 16 mls/hr Methylprednisolone Sodium Succinate (Solu-Medrol -) 500 mg IVPB ONCE ONE Stop: 08/21/16 12:01 Mirtazapine (Remeron -) 7.5 mg PO HS [facility] Last Admin: 08/20/16 21:36 Dose: 7.5 mg Nifedipine (Procardia Xl -) 60 mg PO DAILY [facility] Last Admin: 08/21/16 10:37 Dose: 60 mg Polyethylene Glycol (Miralax (For Daily Use) -) 17 gm PO DAILY [facility] Last Admin: 08/21/16 10:41 Dose: 17 gm Ranitidine HCl (Zantac -) 150 mg PO BID [facility] Last Admin: 08/21/16 10:37 Dose: 150 mg Risperidone (Risperdal -) 0.25 mg PO [facility] Last Admin: 08/20/16 21:35 Dose: 0.25 mg Rivastigmine Tartrate (Exelon (Nf) -) 1.5 mg PO BID [facility] Last Admin: 08/21/16 10:41 Dose: 1.5 mg Senna/Docusate Sodium (Pericolace -) 1 tablet PO [facility] Last Admin: 08/20/16 21:33 Dose: 1 tablet Sodium Bicarbonate (Sodium Bicarbonate -) 650 mg PO BID [facility] Last Admin: 08/21/16 10:37 Dose: 650 mg A/P 70 year old woman that is known to me with PMhx of Dementia, Hypertension, DVT, GERD, Hep C, Anemia, Anxiety, Depression who was sent in from [facility] with worsening renal function. 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
[2016-08-21] MEDS ORDERED: methylPREDNISolone NA SUCC 1000 MG/8 ML VIAL IVPB ONE (13:00)
[2016-08-21 13:10] LABS: BASOPHIL 0.1 % (0-2.0); EOSINOPHIL 0.9 % (0-4.5); MCHC 33.5 g/dl (32.0-36.0); MEAN CELL VOLUME 89.5 fl (80-96); NEUTROPHILS 66.2 % (42.8-82.8); PLATELET COUNT 231 K/MM3 (134-434); RDW 14.8 % (11.6-15.6); WHITE BLOOD COUNT 7.7 K/mm3 (4.0-10.0)
[2016-08-21 13:31] LABS: ALBUMIN 2.5 g/dl (3.4-5.0); CALCIUM 8.5 mg/dL (8.5-10.1); CREATININE 3.9 mg/dL (0.55-1.02); PHOSPHOROUS 3.1 mg/dL (2.5-4.9)
[2016-08-21 13:32] LABS: BILIRUBIN,TOTAL 0.4 mg/dL (0.2-1.0); TOT PROT 6.1 g/dl (6.4-8.2)
[2016-08-21] MEDS: SENNOSIDES/DOCUSATE COMBO (SENNA PLUS) TABLET (UD) PO SCH (21:05)
[2016-08-21] MEDS: MIRTAZAPINE 15 MG TABLET (FP) PO SCH (21:05)
[2016-08-21] MEDS: DOCUSATE SODIUM 100 MG CAPSULE (FP) PO SCH (21:06)
[2016-08-21] MEDS: risperiDONE 0.25 MG TABLET (FP) PO SCH (21:07)
[2016-08-22 08:47] LABS: BASOPHIL 0.4 % (0-2.0); MCH 30.8 pg (25.7-33.7); MCHC 34.2 g/dl (32.0-36.0); MEAN CELL VOLUME 90.2 fl (80-96); NEUTROPHILS 79.2 % (42.8-82.8); PLATELET COUNT 271 K/MM3 (134-434); RDW 15.3 % (11.6-15.6); WHITE BLOOD COUNT 8.1 K/mm3 (4.0-10.0)
[2016-08-22] MEDS: NIFEdipine E.R. 30 MG TABLET (FP) PO SCH ×2 (09:05→21:36)
[2016-08-22 09:15] LABS: BILIRUBIN,TOTAL 0.5 mg/dL (0.2-1.0); CALCIUM 9.3 mg/dL (8.5-10.1); CREATININE 3.9 mg/dL (0.55-1.02); MAGNESIUM 2.1 mg/dL (1.8-2.4); PHOSPHOROUS 3.5 mg/dL (2.5-4.9); TOT PROT 6.7 g/dl (6.4-8.2)
[2016-08-22] MEDS: POLYETHYLENE GLYCOL 3350 119 GM BTL PO SCH (10:44)
[2016-08-22] MEDS: FOLIC ACID 1 MG TABLET (FP) PO SCH (10:44)
[2016-08-22] MEDS: CEFUROXIME AXETIL 250 MG TABLET PO SCH (10:44)
[2016-08-22] MEDS: CALCIUM 500MG/VIT-D 200 UNITS COMBO TABLET (FP) PO SCH ×2 (10:44→21:36)
[2016-08-22] MEDS: RIVASTIGMINE TARTRATE 1.5 MG CAPSULE PO SCH ×2 (10:44→21:37)
[2016-08-22] MEDS: SODIUM BICARBONATE 650 MG TABLET PO SCH ×2 (10:45→21:37)
[2016-08-22] MEDS: RANITIDINE HCL 150 MG TABLET (FP) PO SCH ×2 (10:45→21:37)
--- NOTE | 2016-08-22 11:20 | PN ---
Progress Note, Physician Chief Complaint: patient currently NPO for renal biopsy today - Current Medication List Current Medications: Active Medications Acetaminophen (Tylenol -) 325 mg PO Q6H PRN PRN Reason: PAIN Last Admin: 08/20/16 21:34 Dose: 325 mg Calcium Carbonate/Cholecalciferol (Os-Hang 500+D -) 1 tab PO BID [facility] Last Admin: 08/22/16 10:44 Dose: Not Given Cefuroxime Axetil (Ceftin -) 250 mg PO DAILY [facility] Last Admin: 08/22/16 10:44 Dose: Not Given Clonidine HCl (Catapres Tts Patch -) 0.1 mg TD Fr@10 [facility] Last Admin: 08/18/16 10:48 Dose: 0.1 mg Docusate Sodium (Colace -) 300 mg PO HS [facility] Last Admin: 08/21/16 21:06 Dose: 300 mg Folic Acid (Folic Acid -) 1 mg PO DAILY [facility] Last Admin: 08/22/16 10:44 Dose: Not Given Heparin Sodium (Porcine) (Heparin -) 1,000 unit IVPUSH PRN PRN PRN Reason: Heparin Heparin Sodium (Porcine) (Heparin -) 5,000 unit IVPUSH PRN PRN PRN Reason: Heparin IV Flush (Picc Line Flush) 8 ml IVPUSH PRN PRN PRN Reason: Protocol Heparin Sodium/Dextrose (Heparin Infusion -) 500 mls @ 16 mls/hr IVPB TITR [facility] ; 800 UNITS/HR PRN Reason: Protocol Last Admin: 08/20/16 17:14 Dose: 16 mls/hr Mirtazapine (Remeron -) 7.5 mg PO [facility] Last Admin: 08/21/16 21:05 Dose: 7.5 mg Nifedipine (Procardia Xl -) 60 mg PO DAILY [facility] Last Admin: 08/22/16 09:05 Dose: 60 mg Nifedipine (Procardia Xl -) 30 mg PO DAILY@1999 [facility] Last Admin: 08/21/16 21:06 Dose: 30 mg Polyethylene Glycol (Miralax (For Daily Use) -) 17 gm PO DAILY [facility] Last Admin: 08/22/16 10:44 Dose: Not Given Ranitidine HCl (Zantac -) 150 mg PO BID [facility] Last Admin: 08/22/16 10:45 Dose: Not Given Risperidone (Risperdal -) 0.25 mg PO [facility] Last Admin: 08/21/16 21:07 Dose: 0.25 mg Rivastigmine Tartrate (Exelon (Nf) -) 1.5 mg PO BID [facility] Last Admin: 08/22/16 10:44 Dose: Not Given Senna/Docusate Sodium (Pericolace -) 1 tablet PO [facility] Last Admin: 08/21/16 21:05 Dose: 1 tablet Sodium Bicarbonate (Sodium Bicarbonate -) 650 mg PO BID [facility] Last Admin: 08/22/16 10:45 Dose: Not Given - Objective Vital Signs: Vital Signs Temperature 98.2 F 08/22/16 09:00 Pulse Rate 57 L 08/22/16 09:00 Respiratory Rate 20 08/22/16 09:00 Blood Pressure 165/75 08/22/16 09:00 O2 Sat by Pulse Oximetry (%) 98 08/22/16 09:00 Constitutional: Yes: Calm Neck: Yes: Trachea Midline Cardiovascular: Yes: Regular Rate and Rhythm, S1, S2 Respiratory: Yes: CTA Bilaterally Gastrointestinal: Yes: Normal Bowel Sounds, Soft Edema: No Neurological: Yes: Alert, Oriented Labs: CBC, BMP 08/22/16 07:50 08/22/16 07:50 INR, PTT INR 1.03 (0.82-1.09) 08/19/16 05:50 Problem List - Problems (1) Acute renal failure Assessment/Plan: for biopsy today eleiquis on hold npo s/p solumedrol dose creatinine improving now 3.5 on sodium bicarbonate Code(s): N17.9 - ACUTE KIDNEY FAILURE, UNSPECIFIED Qualifiers: Acute renal failure type: unspecified Qualified Code(s): N17.9 - Acute kidney failure, unspecified (2) Dementia Assessment/Plan: rispierdol and rememron Code(s): F03.90 - UNSPECIFIED DEMENTIA WITHOUT BEHAVIORAL DISTURBANCE Qualifiers: Dementia type: unspecified type Dementia behavioral disturbance: without behavioral disturbance Qualified Code(s): F03.90 - Unspecified dementia without behavioral disturbance (3) Poor venous access Assessment/Plan: apreicate surgical consult iv access established Code(s): I87.8 - OTHER SPECIFIED DISORDERS OF VEINS (4) DVT (deep venous thrombosis) Assessment/Plan: iv heparin Code(s): I82.409 - ACUTE EMBOLISM AND THOMBOS UNSP DEEP VN UNSP LOWER EXTREMITY (5) HTN (hypertension) Assessment/Plan: clonidine and procardia Code(s): I10 - ESSENTIAL (PRIMARY) HYPERTENSION (6) Mood disorder Assessment/Plan: risperidol Code(s): F39 - UNSPECIFIED MOOD [AFFECTIVE] DISORDER
--- NOTE | 2016-08-22 11:22 | PN ---
Progress Note (short form) - Note Progress Note: Renal Follow up for SHARI Pt seen and examined at the bedside no complaints awaiting renal biopsy NPO off Heparin gtt Vital Signs Temperature 98.2 F 08/22/16 09:00 Pulse Rate 57 L 08/22/16 09:00 Respiratory Rate 20 08/22/16 09:00 Blood Pressure 165/75 08/22/16 09:00 O2 Sat by Pulse Oximetry (%) 98 08/22/16 09:00 Intake & Output 08/19/16 08/20/16 08/21/16 08/22/16 23:59 23:59 23:59 23:59 Intake Total 500 373 8194 144 Output Total 1100 2100 1800 200 Balance -610 -1608 -158 -56 Gen: NAD HEENT: NC/AT, MMM No JVD CVS: RRR, No M/R Lungs: CTA Abd: soft NT/ND Ext: No edema, clubbing or cyanosis : De La Cruz in place CBC, BMP 08/22/16 07:50 08/22/16 07:50 Current Medications Acetaminophen (Tylenol -) 325 mg PO Q6H PRN PRN Reason: PAIN Last Admin: 08/20/16 21:34 Dose: 325 mg Calcium Carbonate/Cholecalciferol (Os-Hang 500+D -) 1 tab PO BID [facility] Last Admin: 08/22/16 10:44 Dose: Not Given Cefuroxime Axetil (Ceftin -) 250 mg PO DAILY [facility] Last Admin: 08/22/16 10:44 Dose: Not Given Clonidine HCl (Catapres Tts Patch -) 0.1 mg TD Fr@10 [facility] Last Admin: 08/18/16 10:48 Dose: 0.1 mg Docusate Sodium (Colace -) 300 mg PO HS [facility] Last Admin: 08/21/16 21:06 Dose: 300 mg Folic Acid (Folic Acid -) 1 mg PO DAILY [facility] Last Admin: 08/22/16 10:44 Dose: Not Given Heparin Sodium (Porcine) (Heparin -) 1,000 unit IVPUSH PRN PRN PRN Reason: Heparin Heparin Sodium (Porcine) (Heparin -) 5,000 unit IVPUSH PRN PRN PRN Reason: Heparin IV Flush (Picc Line Flush) 8 ml IVPUSH PRN PRN PRN Reason: Protocol Heparin Sodium/Dextrose (Heparin Infusion -) 500 mls @ 16 mls/hr IVPB TITR [facility] ; 800 UNITS/HR PRN Reason: Protocol Last Admin: 08/20/16 17:14 Dose: 16 mls/hr Mirtazapine (Remeron -) 7.5 mg PO [facility] Last Admin: 08/21/16 21:05 Dose: 7.5 mg Nifedipine (Procardia Xl -) 60 mg PO DAILY [facility] Last Admin: 08/22/16 09:05 Dose: 60 mg Nifedipine (Procardia Xl -) 30 mg PO DAILY@1999 [facility] Last Admin: 08/21/16 21:06 Dose: 30 mg Polyethylene Glycol (Miralax (For Daily Use) -) 17 gm PO DAILY [facility] Last Admin: 08/22/16 10:44 Dose: Not Given Ranitidine HCl (Zantac -) 150 mg PO BID [facility] Last Admin: 08/22/16 10:45 Dose: Not Given Risperidone (Risperdal -) 0.25 mg PO [facility] Last Admin: 08/21/16 21:07 Dose: 0.25 mg Rivastigmine Tartrate (Exelon (Nf) -) 1.5 mg PO BID [facility] Last Admin: 08/22/16 10:44 Dose: Not Given Senna/Docusate Sodium (Pericolace -) 1 tablet PO [facility] Last Admin: 08/21/16 21:05 Dose: 1 tablet Sodium Bicarbonate (Sodium Bicarbonate -) 650 mg PO BID [facility] Last Admin: 08/22/16 10:45 Dose: Not Given A/P 70 year old woman that is known to me with PMhx of Dementia, Hypertension, DVT, GERD, Hep C, Anemia, Anxiety, Depression who was sent in from [facility] with worsening renal function. 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
--- NOTE | 2016-08-22 17:25 | PN ---
Progress Note (short form) - Note Progress Note: Patient seen and examined S/P renal biopsy Reportedly tolerated well Last Vital Signs Temp Pulse Resp BP Pulse Ox 98.2 F 59 L 15 175/85 100 08/22/16 09:00 08/22/16 13:50 08/22/16 13:50 08/22/16 13:50 08/22/16 13:50 Lungs -diminished breath sounds Cor -RSR Soft -abd- no significant edema CBC, BMP 08/22/16 07:50 08/22/16 07:50 Current Medications Generic Name Dose Route Start Last Admin Trade Name Freq PRN Reason Stop Dose Admin Acetaminophen 325 mg 08/14/16 21:37 08/20/16 21:34 Tylenol - PO 325 mg Q6H PRN Administration PAIN Calcium Carbonate/Cholecalciferol 1 tab 08/14/16 22:00 08/22/16 10:44 Os-Hang 500+D - PO Not Given BID [facility] Cefuroxime Axetil 250 mg 08/19/16 10:00 08/22/16 10:44 Ceftin - PO Not Given DAILY [facility] Clonidine HCl 0.1 mg 08/18/16 10:00 08/18/16 10:48 Catapres Tts Patch - TD 0.1 mg Fr@10 [facility] Administration Docusate Sodium 300 mg 08/14/16 22:00 08/21/16 21:06 Colace - PO 300 mg HS [facility] Administration Folic Acid 1 mg 08/15/16 10:00 08/22/16 10:44 Folic Acid - PO Not Given DAILY [facility] Heparin Sodium (Porcine) 1,000 unit 08/19/16 14:11 Heparin - IVPUSH PRN PRN Heparin Heparin Sodium (Porcine) 5,000 unit 08/19/16 14:11 Heparin - IVPUSH PRN PRN Heparin IV Flush 8 ml 08/20/16 19:01 Picc Line Flush IVPUSH PRN PRN Protocol Heparin Sodium/Dextrose 500 mls @ 16 mls/hr 08/20/16 06:00 08/20/16 17:14 Heparin Infusion - IVPB 16 mls/hr TITR [facility] Administration Protocol 800 UNITS/HR Mirtazapine 7.5 mg 08/14/16 22:00 08/21/16 21:05 Remeron - PO 7.5 mg HS [facility] Administration Nifedipine 60 mg 08/20/16 10:00 08/22/16 09:05 Procardia Xl - PO 60 mg DAILY [facility] Administration Nifedipine 30 mg 08/21/16 20:00 08/21/16 21:06 Procardia Xl - PO 30 mg DAILY@1999 [facility] Administration Polyethylene Glycol 17 gm 08/15/16 10:00 08/22/16 10:44 Miralax (For Daily Use) - PO Not Given DAILY [facility] Ranitidine HCl 150 mg 08/14/16 22:00 08/22/16 10:45 Zantac - PO Not Given BID [facility] Risperidone 0.25 mg 08/14/16 22:00 08/21/16 21:07 Risperdal - PO 0.25 mg HS [facility] Administration Rivastigmine Tartrate 1.5 mg 08/14/16 22:00 08/22/16 10:44 Exelon (Nf) - PO Not Given BID [facility] Senna/Docusate Sodium 1 tablet 08/14/16 22:00 08/21/16 21:05 Pericolace - PO 1 tablet HS [facility] Administration Sodium Bicarbonate 650 mg 08/15/16 22:00 08/22/16 10:45 Sodium Bicarbonate - PO Not Given BID [facility] Impression: S/P renal biopsy Chronic disease anemia Dementia Await biopsy.
--- NOTE | 2016-08-22 19:38 | CONSULT ---
Consult Consult Specialty:: Rheumatology - History of Present Illness History of Present Illness: 70 year old female, resident of [facility], with past medical history of dementia, hypertension, DVT, GERD, anemia, anxiety, and depression, admitted for progression of renal insufficiency. She was found to have KAIDEN and ANCA positive. HPI The patient reports to be asymptomatic and she cannot contribute to the medical history. She had a previous admission on 07/14/16 for chronic kidney disease. Laboratory work-up from 04/07/16 revealed a creatinine of 0.8 and normal urinary sediment. On 07/14/16 the creatinine was 2.8 and urinalysis had protein 2+ and blood 2+. A possibility of ATN was raised. On this admission creatinine was 5.9 and improved to 3.9 Urinalysis with prtotein 2+ and blood 3+. Serology revealed KAIDEN 1:1280 with homogeneous pattern. Proteinase-3:36.8 , myeloperoxidase 56.8 and P-ANCA 1:640. Anti-DNAds, glomerular basement antibody and HCV were negative. C3 was low (60) and C4 and CH50 were normal ( 16 and 48 respectively). On admission CBC had a WBC of 3.6, Hgb 6.8, HCT 20.1 and platelets 242. Haptoglobin was 327 and direct Maldonado negative. The patient received pRBC transfusion. The last CBC had WBC 8.1, Hgb 19.8, HCT 31.8 and platelets 271. CXR was normal and CT of the head reported with microvascular ischemic gliosis and dilatation of ventricles secondary to atrophy - unchanged from 10/31/14. The patient had a kidney biopsy today. 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 ) ...: No Psych: Yes: Anxiety, Depression - Alcohol/Substance Use Hx Alcohol Use: No - Smoking History Smoking history: Never smoked Have you smoked in the past 12 months: No Aproximately how many cigarettes per day: 0 If you are a former smoker, when did you quit?: 5 years ago - Social History Usual Living Arrangement: Alone History of Recent Travel: No Home Medications - Allergies Allergies/Adverse Reactions: Allergies Allergy/AdvReac Type Severity Reaction Status Date / Time No Known Allergies Allergy Verified 07/14/16 16:13 - Home Medications Home Medications: Ambulatory Orders Acetaminophen 325 mg PO Q6H PRN 07/14/16 Clonidine Patch [Catapres Tts Patch -] 0.1 mg TD WEEKLY 07/14/16 Docusate Sodium 300 mg PO HS 07/14/16 Folic Acid 1 mg PO DAILY 07/14/16 Hydralazine HCl 100 mg PO Q8H 07/14/16 Polyethylene Glycol 3350 [Miralax 119 gm Btl -] 17 gm PO DAILY 07/14/16 Ranitidine HCl [Zantac] 150 mg PO BID 07/14/16 Rivastigmine Tartrate [Rivastigmine] 1.5 mg PO BID 07/14/16 Sennosides/Docusate Sodium [Senna Laxative Tablet] 1 each PO HS 07/14/16 Apixaban [Eliquis] 2.5 mg PO BID #30 tablet 07/20/16 Mirtazapine [Remeron -] 7.5 mg PO HS tablet 07/20/16 Calcium Carbonate/Vitamin D3 [Oyster Shell 500-Vit D3 200 Tb] 1 tab PO BID 08/14 Risperidone 1 tab PO HS 08/14/16 Review of Systems - Review of Systems Constitutional: reports: No Symptoms Eyes: reports: No Symptoms HENT: reports: No Symptoms Neck: reports: No Symptoms Cardiovascular: reports: No Symptoms Respiratory: reports: No Symptoms Gastrointestinal: reports: No Symptoms Musculoskeletal: reports: No Symptoms Physical Exam Vital Signs: Vital Signs Temperature 98.2 F 08/22/16 09:00 Pulse Rate 59 L 08/22/16 13:50 Respiratory Rate 15 08/22/16 13:50 Blood Pressure 175/85 08/22/16 13:50 O2 Sat by Pulse Oximetry (%) 100 08/22/16 13:50 Constitutional: Yes: No Distress Eyes: Yes: WNL HENT: Yes: WNL Neck: Yes: WNL Cardiovascular: Yes: WNL Respiratory: Yes: WNL Gastrointestinal: Yes: WNL Musculoskeletal: Yes: Other (No active joints.) Labs: CBC, BMP 08/22/16 07:50 08/22/16 07:50 Laboratory Tests 08/15/16 08/15/16 08/16/16 10:50 10:50 09:00 Haptoglobin 327 H Total Bilirubin AST ALT Alkaline Phosphatase Urine Color Yellow Urine Appearance Turbid Urine pH 5.0 Ur Specific Lewis 1.009 Urine Protein 2+ H Urine Glucose (UA) Negative Urine Ketones Negative Urine Blood 3+ H Urine Nitrite Positive Urine Bilirubin Negative Urine Urobilinogen Negative Ur Leukocyte Esterase 3+ H Urine RBC 90 Urine WBC 1281 U Random Total Protein KAIDEN Homogeneous Pattern 1:1280 H c-ANCA <1:20 Proteinase 3 (PR3) 36.8 H p-ANCA >1:640 H Atypical p-ANCA <1:20 Myeloperoxidase Ab 56.8 H Double Strand DNA Ab Glomerular Base Memb Ab 3 Complement C3 Complement C4 Tot Complement (CH50) 08/16/16 08/17/16 08/18/16 12:20 20:15 07:15 Haptoglobin Total Bilirubin AST ALT Alkaline Phosphatase Urine Color Urine Appearance Urine pH Ur Specific Lewis Urine Protein Urine Glucose (UA) Urine Ketones Urine Blood Urine Nitrite Urine Bilirubin Urine Urobilinogen Ur Leukocyte Esterase Urine RBC Urine WBC U Random Total Protein 137 H KAIDEN Homogeneous Pattern c-ANCA Proteinase 3 (PR3) p-ANCA Atypical p-ANCA Myeloperoxidase Ab Double Strand DNA Ab 6 Glomerular Base Memb Ab Complement C3 60 L Complement C4 16 Tot Complement (CH50) 08/18/16 08/22/16 07:15 07:50 Haptoglobin Total Bilirubin 0.5 D AST 10 L D ALT 12 Alkaline Phosphatase 56 Urine Color Urine Appearance Urine pH Ur Specific Lewis Urine Protein Urine Glucose (UA) Urine Ketones Urine Blood Urine Nitrite Urine Bilirubin Urine Urobilinogen Ur Leukocyte Esterase Urine RBC Urine WBC U Random Total Protein KAIDEN Homogeneous Pattern c-ANCA Proteinase 3 (PR3) p-ANCA Atypical p-ANCA Myeloperoxidase Ab Double Strand DNA Ab Glomerular Base Memb Ab Complement C3 Complement C4 Tot Complement (CH50) 48 Problem List - Problems (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 No evidence of lung or other organ involvement. Serology had proteinase-3 and myeloperoxidase with P-ANCA positive. Probable microscopic polyangiitis, however she could have granulomatosis with polyangiitis (Jennifer's). I suggest: Start Solumedrol 1 gr IV daily pulse for 3 days followed by Rituxan ( Kyle protocol). CT of the chest. I will discuss the case with Harshal Diaz and Leon. Thanks. Tadeo Correa MD Code(s): I77.6 - ARTERITIS, UNSPECIFIED
[2016-08-22] MEDS: ACETAMINOPHEN 325 MG TABLET (FP) PO PRN (21:35)
[2016-08-22] MEDS: MIRTAZAPINE 15 MG TABLET (FP) PO SCH (21:36)
[2016-08-22] MEDS: SENNOSIDES/DOCUSATE COMBO (SENNA PLUS) TABLET (UD) PO SCH (21:37)
[2016-08-22] MEDS: DOCUSATE SODIUM 100 MG CAPSULE (FP) PO SCH (21:37)
[2016-08-22] MEDS: risperiDONE 0.25 MG TABLET (FP) PO SCH (21:37)
[2016-08-22 22:32] LABS: URINE APPEARANCE CLEAR; URINE BILIRUBIN NEGATIVE (NEGATIVE); URINE BLOOD 3+ (NEGATIVE); URINE COLOR STRAW; URINE GLUCOSE (UA) 1+ (NEGATIVE); URINE KETONE NEGATIVE (NEGATIVE); URINE LEUK ESTERASE NEGATIVE (NEGATIVE); URINE NITRITE NEGATIVE (NEGATIVE); URINE PROTEIN 1+ (NEGATIVE); URINE UROBILINOGEN NEGATIVE E.U./dl (0.2-1.0)
[2016-08-22 22:35] LABS: URINE MUCUS FEW; URINE RBC 46 /hpf (0-3); URINE WBC 17 /hpf (3-5)
[2016-08-23 07:15] LABS: BASOPHIL 0.2 % (0-2.0); EOSINOPHIL 1.7 % (0-4.5); MCH 31.1 pg (25.7-33.7); MCHC 34.4 g/dl (32.0-36.0); MEAN CELL VOLUME 90.7 fl (80-96); MEAN PLT VOLUME 7.6 fl (7.5-11.1); NEUTROPHILS 71.7 % (42.8-82.8); PLATELET COUNT 272 K/MM3 (134-434); RDW 15.3 % (11.6-15.6); WHITE BLOOD COUNT 9.1 K/mm3 (4.0-10.0)
[2016-08-23 07:48] LABS: BILIRUBIN,TOTAL 0.5 mg/dL (0.2-1.0); CALCIUM 9.5 mg/dL (8.5-10.1); CREATININE 3.5 mg/dL (0.55-1.02); TOT PROT 6.8 g/dl (6.4-8.2)
--- NOTE | 2016-08-23 08:45 | PN ---
Progress Note, Physician History of Present Illness: CONFUSED S/P RENAL BIOPSY - Current Medication List Current Medications: Active Medications Acetaminophen (Tylenol -) 325 mg PO Q6H PRN PRN Reason: PAIN Last Admin: 08/22/16 21:35 Dose: 325 mg Calcium Carbonate/Cholecalciferol (Os-Hang 500+D -) 1 tab PO BID [facility] Last Admin: 08/22/16 21:36 Dose: 1 tab Cefuroxime Axetil (Ceftin -) 250 mg PO DAILY [facility] Last Admin: 08/22/16 10:44 Dose: Not Given Clonidine HCl (Catapres Tts Patch -) 0.1 mg TD Fr@10 [facility] Last Admin: 08/18/16 10:48 Dose: 0.1 mg Docusate Sodium (Colace -) 300 mg PO HS [facility] Last Admin: 08/22/16 21:37 Dose: 300 mg Folic Acid (Folic Acid -) 1 mg PO DAILY [facility] Last Admin: 08/22/16 10:44 Dose: Not Given Heparin Sodium (Porcine) (Heparin -) 1,000 unit IVPUSH PRN PRN PRN Reason: Heparin Heparin Sodium (Porcine) (Heparin -) 5,000 unit IVPUSH PRN PRN PRN Reason: Heparin IV Flush (Picc Line Flush) 8 ml IVPUSH PRN PRN PRN Reason: Protocol Heparin Sodium/Dextrose (Heparin Infusion -) 500 mls @ 16 mls/hr IVPB TITR RAUDEL ; 800 UNITS/HR PRN Reason: Protocol Last Admin: 08/20/16 17:14 Dose: 16 mls/hr Insulin Aspart (Novolog Vial) 0 units SQ ACHS [facility] PRN Reason: Protocol Methylprednisolone Sodium Succinate (Solu-Medrol -) 1,000 mg IVPB DAILY [facility] Stop: 08/25/16 18:00 Mirtazapine (Remeron -) 7.5 mg PO HS [facility] Last Admin: 08/22/16 21:36 Dose: 7.5 mg Nifedipine (Procardia Xl -) 60 mg PO DAILY [facility] Last Admin: 08/22/16 09:05 Dose: 60 mg Nifedipine (Procardia Xl -) 30 mg PO DAILY@2000 [facility] Last Admin: 08/22/16 21:36 Dose: 30 mg Polyethylene Glycol (Miralax (For Daily Use) -) 17 gm PO DAILY [facility] Last Admin: 08/22/16 10:44 Dose: Not Given Ranitidine HCl (Zantac -) 150 mg PO BID [facility] Last Admin: 08/22/16 21:37 Dose: 150 mg Risperidone (Risperdal -) 0.25 mg PO [facility] Last Admin: 08/22/16 21:37 Dose: 0.25 mg Rivastigmine Tartrate (Exelon (Nf) -) 1.5 mg PO BID [facility] Last Admin: 08/22/16 21:37 Dose: 1.5 mg Senna/Docusate Sodium (Pericolace -) 1 tablet PO [facility] Last Admin: 08/22/16 21:37 Dose: 1 tablet Sodium Bicarbonate (Sodium Bicarbonate -) 650 mg PO BID [facility] Last Admin: 08/22/16 21:37 Dose: 650 mg - Objective Vital Signs: Vital Signs Temperature 97.6 F 08/23/16 06:00 Pulse Rate 60 08/23/16 06:00 Respiratory Rate 20 08/23/16 06:00 Blood Pressure 152/72 08/23/16 06:00 O2 Sat by Pulse Oximetry (%) 98 08/22/16 21:00 Cardiovascular: Yes: Regular Rate and Rhythm Respiratory: Yes: Regular, CTA Bilaterally Gastrointestinal: Yes: Normal Bowel Sounds, Soft. 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 Give Solumederol 1g IV for 3 days Renal Biopsy done No acute indication for BUHR DRESSER d/c Hydralazine because of possibility of medication induced lupus Code(s): N17.9 - ACUTE KIDNEY FAILURE, UNSPECIFIED Qualifiers: Acute renal failure type: unspecified Qualified Code(s): N17.9 - Acute kidney failure, unspecified (2) DVT (deep venous thrombosis) Assessment/Plan: OFF ELIQUIS CONT HEPARIN Code(s): I82.409 - ACUTE EMBOLISM AND THOMBOS UNSP DEEP VN UNSP LOWER EXTREMITY (3) Dementia Assessment/Plan: CT OF HEAD Code(s): F03.90 - UNSPECIFIED DEMENTIA WITHOUT BEHAVIORAL DISTURBANCE Qualifiers: Dementia type: unspecified type Dementia behavioral disturbance: without behavioral disturbance Qualified Code(s): F03.90 - Unspecified dementia without behavioral disturbance
[2016-08-23] MEDS ORDERED: PT OWN MED DRAWER 7, Y5N ONE ×3 (09:42→21:35)
[2016-08-23] MEDS: RIVASTIGMINE TARTRATE 1.5 MG CAPSULE PO SCH ×2 (09:57→21:39)
[2016-08-23] MEDS: CEFUROXIME AXETIL 250 MG TABLET PO SCH (09:57)
[2016-08-23] MEDS: FOLIC ACID 1 MG TABLET (FP) PO SCH (09:58)
[2016-08-23] MEDS: CALCIUM 500MG/VIT-D 200 UNITS COMBO TABLET (FP) PO SCH ×2 (09:58→21:40)
[2016-08-23] MEDS: RANITIDINE HCL 150 MG TABLET (FP) PO SCH ×2 (09:58→21:40)
[2016-08-23] MEDS: SODIUM BICARBONATE 650 MG TABLET PO SCH ×2 (09:58→21:40)
[2016-08-23] MEDS: NIFEdipine E.R. 30 MG TABLET (FP) PO SCH ×2 (09:58→21:40)
[2016-08-23] MEDS: methylPREDNISolone NA SUCC 1000 MG/8 ML VIAL IVPB SCH ×2 (10:10→10:13)
[2016-08-23] MEDS: POLYETHYLENE GLYCOL 3350 119 GM BTL PO SCH (10:10)
[2016-08-23] MEDS: predniSONE 20 MG TABLET (UD) PO SCH (10:18)
[2016-08-23] MEDS ORDERED: POTASSIUM CHLORIDE 40 MEQ/30 ML UNIT DOSE CUP PO ONE (10:45)
[2016-08-23] MEDS ORDERED: POTASSIUM CHLORIDE TABS 20 MEQ TABLET.ER (FP) PO ONE (11:15)
[2016-08-23] MEDS: INSULIN SLIDING SCALE (NOVOLOG) 1 VIAL SQ SCH ×3 (11:15→21:51)
--- NOTE | 2016-08-23 11:41 | PN ---
Progress Note (short form) - Note Progress Note: Renal Follow up for SHARI Pt seen and examined at the bedside no complaints s/p renal biopsy yesterday denies any flank pain no hematuria seen in [place] Vital Signs Temperature 97.7 F 08/23/16 09:25 Pulse Rate 62 08/23/16 09:25 Respiratory Rate 20 08/23/16 09:25 Blood Pressure 156/75 08/23/16 09:25 O2 Sat by Pulse Oximetry (%) 98 08/22/16 21:00 Intake & Output 08/20/16 08/21/16 08/22/16 08/23/16 23:59 23:59 23:59 23:59 Intake Total 492 1642 444 100 Output Total 2100 1800 1200 Balance -5368 -158 -756 100 Gen: NAD HEENT: NC/AT, MMM No JVD CVS: RRR, No M/R Lungs: CTA Abd: soft NT/ND Ext: No edema, clubbing or cyanosis : [place] Cruz in place CBC, BMP 08/23/16 06:00 08/23/16 06:00 Current Medications Acetaminophen (Tylenol -) 325 mg PO Q6H PRN PRN Reason: PAIN Last Admin: 08/22/16 21:35 Dose: 325 mg Calcium Carbonate/Cholecalciferol (Os-Hang 500+D -) 1 tab PO BID [facility] Last Admin: 08/23/16 09:58 Dose: 1 tab Cefuroxime Axetil (Ceftin -) 250 mg PO DAILY [facility] Last Admin: 08/23/16 09:57 Dose: 250 mg Clonidine HCl (Catapres Tts Patch -) 0.1 mg TD Fr@10 [facility] Last Admin: 08/18/16 10:48 Dose: 0.1 mg Docusate Sodium (Colace -) 300 mg PO HS [facility] Last Admin: 08/22/16 21:37 Dose: 300 mg Folic Acid (Folic Acid -) 1 mg PO DAILY [facility] Last Admin: 08/23/16 09:58 Dose: 1 mg Heparin Sodium (Porcine) (Heparin -) 1,000 unit IVPUSH PRN PRN PRN Reason: Heparin Heparin Sodium (Porcine) (Heparin -) 5,000 unit IVPUSH PRN PRN PRN Reason: Heparin IV Flush (Picc Line Flush) 8 ml IVPUSH PRN PRN PRN Reason: Protocol Heparin Sodium/Dextrose (Heparin Infusion -) 500 mls @ 16 mls/hr IVPB TITR RAUDEL ; 800 UNITS/HR PRN Reason: Protocol Last Admin: 08/20/16 17:14 Dose: 16 mls/hr Insulin Aspart (Novolog Vial Sliding Scale -) 1 vial SQ ACHS [facility] PRN Reason: Protocol Last Admin: 08/23/16 11:15 Dose: Not Given Mirtazapine (Remeron -) 7.5 mg PO HS [facility] Last Admin: 08/22/16 21:36 Dose: 7.5 mg Nifedipine (Procardia Xl -) 60 mg PO DAILY [facility] Last Admin: 08/23/16 09:58 Dose: 60 mg Nifedipine (Procardia Xl -) 30 mg PO DAILY@1999 [facility] Last Admin: 08/22/16 21:36 Dose: 30 mg Polyethylene Glycol (Miralax (For Daily Use) -) 17 gm PO DAILY [facility] Last Admin: 08/23/16 10:10 Dose: 17 gm Prednisone (Deltasone -) 60 mg PO DAILY [facility] Last Admin: 08/23/16 10:18 Dose: 60 mg Ranitidine HCl (Zantac -) 150 mg PO BID [facility] Last Admin: 08/23/16 09:58 Dose: 150 mg Risperidone (Risperdal -) 0.25 mg PO HS [facility] Last Admin: 08/22/16 21:37 Dose: 0.25 mg Rivastigmine Tartrate (Exelon (Nf) -) 1.5 mg PO BID [facility] Last Admin: 08/23/16 09:57 Dose: 1.5 mg Senna/Docusate Sodium (Pericolace -) 1 tablet PO HS [facility] Last Admin: 08/22/16 21:37 Dose: 1 tablet Sodium Bicarbonate (Sodium Bicarbonate -) 650 mg PO BID [facility] Last Admin: 08/23/16 09:58 Dose: 650 mg A/P 70 year old woman that is known to me with PMhx of Dementia, Hypertension, DVT, GERD, Hep C, Anemia, Anxiety, Depression who was sent in from [facility] with worsening renal function. 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 Correa Plan for further immunosupresion based on final biopsy result #Hx of DVT on Eliquis Held Eliquis because of planned renal biopsy next week To hold all A/C for 48 hours after biopsy as per IR recs Will check US of kidney tomorrow #Chronic Anemia Hgb downtrending Heme follow up s/p PRBC transfusion stool occult negative #Dementia/Agitation On Riperidone Management as per PMD #Hypertension Procardia 60mg in AM and 30mg QHS #Metabolic acidosis sodium bicarb 650mg BID goal Bicarb > 22 Jhony Gordon DO
[2016-08-23] MEDS: risperiDONE 0.25 MG TABLET (FP) PO SCH (21:40)
[2016-08-23] MEDS: MIRTAZAPINE 15 MG TABLET (FP) PO SCH (21:40)
[2016-08-23] MEDS: DOCUSATE SODIUM 100 MG CAPSULE (FP) PO SCH (21:40)
[2016-08-23] MEDS: SENNOSIDES/DOCUSATE COMBO (SENNA PLUS) TABLET (UD) PO SCH (21:40)
[2016-08-23] MEDS: ACETAMINOPHEN 325 MG TABLET (FP) PO PRN (21:42)
[2016-08-24] MEDS: INSULIN SLIDING SCALE (NOVOLOG) 1 VIAL SQ SCH ×4 (06:41→21:55)
[2016-08-24 07:45] LABS: MCH 31.1 pg (25.7-33.7); MCHC 33.9 g/dl (32.0-36.0); MEAN CELL VOLUME 91.8 fl (80-96); MEAN PLT VOLUME 7.9 fl (7.5-11.1); PLATELET COUNT 241 K/MM3 (134-434); RDW 15.1 % (11.6-15.6); WHITE BLOOD COUNT 8.1 K/mm3 (4.0-10.0)
--- NOTE | 2016-08-24 07:54 | PN ---
Progress Note, Physician History of Present Illness: CONFUSED S/P RENAL BIOPSY - Current Medication List Current Medications: Active Medications Acetaminophen (Tylenol -) 325 mg PO Q6H PRN PRN Reason: PAIN Last Admin: 08/23/16 21:42 Dose: 325 mg Calcium Carbonate/Cholecalciferol (Os-Hang 500+D -) 1 tab PO BID [facility] Last Admin: 08/23/16 21:40 Dose: 1 tab Cefuroxime Axetil (Ceftin -) 250 mg PO DAILY [facility] Last Admin: 08/23/16 09:57 Dose: 250 mg Clonidine HCl (Catapres Tts Patch -) 0.1 mg TD Fr@10 [facility] Last Admin: 08/18/16 10:48 Dose: 0.1 mg Docusate Sodium (Colace -) 300 mg PO HS [facility] Last Admin: 08/23/16 21:40 Dose: 300 mg Folic Acid (Folic Acid -) 1 mg PO DAILY [facility] Last Admin: 08/23/16 09:58 Dose: 1 mg Heparin Sodium (Porcine) (Heparin -) 1,000 unit IVPUSH PRN PRN PRN Reason: Heparin Heparin Sodium (Porcine) (Heparin -) 5,000 unit IVPUSH PRN PRN PRN Reason: Heparin IV Flush (Picc Line Flush) 8 ml IVPUSH PRN PRN PRN Reason: Protocol Heparin Sodium/Dextrose (Heparin Infusion -) 500 mls @ 16 mls/hr IVPB TITR RAUDEL ; 800 UNITS/HR PRN Reason: Protocol Last Admin: 08/20/16 17:14 Dose: 16 mls/hr Insulin Aspart (Novolog Vial Sliding Scale -) 1 vial SQ ACHS [facility] PRN Reason: Protocol Last Admin: 08/24/16 06:41 Dose: Not Given Mirtazapine (Remeron -) 7.5 mg PO [facility] Last Admin: 08/23/16 21:40 Dose: 7.5 mg Multivit/Ca Carb/B Cmplx/FA/Prenat (Nephro-Katherine -) 1 tablet PO DAILY [facility] Nifedipine (Procardia Xl -) 60 mg PO DAILY [facility] Last Admin: 08/23/16 09:58 Dose: 60 mg Nifedipine (Procardia Xl -) 30 mg PO DAILY@2000 [facility] Last Admin: 08/23/16 21:40 Dose: 30 mg Polyethylene Glycol (Miralax (For Daily Use) -) 17 gm PO DAILY [facility] Last Admin: 08/23/16 10:10 Dose: 17 gm Prednisone (Deltasone -) 60 mg PO DAILY [facility] Last Admin: 08/23/16 10:18 Dose: 60 mg Ranitidine HCl (Zantac -) 150 mg PO BID [facility] Last Admin: 08/23/16 21:40 Dose: 150 mg Risperidone (Risperdal -) 0.25 mg PO [facility] Last Admin: 08/23/16 21:40 Dose: 0.25 mg Rivastigmine Tartrate (Exelon (Nf) -) 1.5 mg PO BID [facility] Last Admin: 08/23/16 21:39 Dose: 1.5 mg Senna/Docusate Sodium (Pericolace -) 1 tablet PO [facility] Last Admin: 08/23/16 21:40 Dose: 1 tablet Sodium Bicarbonate (Sodium Bicarbonate -) 650 mg PO BID [facility] Last Admin: 08/23/16 21:40 Dose: 650 mg - Objective Vital Signs: Vital Signs Temperature 98.2 F 08/24/16 06:00 Pulse Rate 61 08/24/16 06:00 Respiratory Rate 20 08/24/16 06:00 Blood Pressure 158/86 08/24/16 06:00 O2 Sat by Pulse Oximetry (%) 98 08/23/16 21:00 Cardiovascular: Yes: Regular Rate and Rhythm Respiratory: Yes: Regular, CTA Bilaterally Gastrointestinal: Yes: Normal Bowel Sounds, Soft Neurological: Yes: Alert, Oriented Labs: CBC, BMP 08/24/16 06:35 08/23/16 06:00 INR, PTT INR 1.03 (0.82-1.09) 08/19/16 05:50 Problem List - Problems (1) Acute renal failure Assessment/Plan: PER RENAL/rheumotolgy 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 d/c Hydralazine because of possibility of medication induced lupus Code(s): N17.9 - ACUTE KIDNEY FAILURE, UNSPECIFIED Qualifiers: Acute renal failure type: unspecified Qualified Code(s): N17.9 - Acute kidney failure, unspecified (2) DVT (deep venous thrombosis) Assessment/Plan: OFF ELIQUIS OFF HEPARIN Code(s): I82.409 - ACUTE EMBOLISM AND THOMBOS UNSP DEEP VN UNSP LOWER EXTREMITY (3) Dementia Assessment/Plan: CT OF HEAD Code(s): F03.90 - UNSPECIFIED DEMENTIA WITHOUT BEHAVIORAL DISTURBANCE Qualifiers: Dementia type: unspecified type Dementia behavioral disturbance: without behavioral disturbance Qualified Code(s): F03.90 - Unspecified dementia without behavioral disturbance Assessment/Plan dc planning---snf
[2016-08-24] MEDS ORDERED: PT OWN MED DRAWER 7, Y5N ONE ×2 (10:35→21:45)
[2016-08-24 11:59] LABS: CALCIUM 9.6 mg/dL (8.5-10.1); CREATININE 3.3 mg/dL (0.55-1.02)
[2016-08-24 12:11] LABS: BILIRUBIN,TOTAL 0.4 mg/dL (0.2-1.0); TOT PROT 6.6 g/dl (6.4-8.2)
[2016-08-24] MEDS: CEFUROXIME AXETIL 250 MG TABLET PO SCH (12:29)
[2016-08-24] MEDS: predniSONE 20 MG TABLET (UD) PO SCH (12:30)
[2016-08-24] MEDS: RIVASTIGMINE TARTRATE 1.5 MG CAPSULE PO SCH ×2 (12:30→21:56)
[2016-08-24] MEDS: SODIUM BICARBONATE 650 MG TABLET PO SCH ×2 (12:30→21:54)
[2016-08-24] MEDS: NIFEdipine E.R. 30 MG TABLET (FP) PO SCH (12:30)
[2016-08-24] MEDS: FOLIC ACID 1 MG TABLET (FP) PO SCH (12:30)
[2016-08-24] MEDS: CALCIUM 500MG/VIT-D 200 UNITS COMBO TABLET (FP) PO SCH ×2 (12:30→21:54)
[2016-08-24] MEDS: POLYETHYLENE GLYCOL 3350 119 GM BTL PO SCH (12:30)
[2016-08-24] MEDS: VITAMIN B COMP W-C 1 EA TABLET PO SCH (12:30)
[2016-08-24] MEDS: RANITIDINE HCL 150 MG TABLET (FP) PO SCH ×2 (12:31→21:54)
--- NOTE | 2016-08-24 15:26 | PN ---
Progress Note (short form) - Note Progress Note: Renal Follow up for SHARI Pt seen and examined at the bedside no complaints no blood in urine or flank pain Vital Signs Temperature 97.7 F 08/24/16 13:51 Pulse Rate 58 L 08/24/16 13:51 Respiratory Rate 20 08/24/16 08:00 Blood Pressure 175/80 08/24/16 13:51 O2 Sat by Pulse Oximetry (%) 96 08/24/16 08:00 Intake & Output 08/21/16 08/22/16 08/23/16 08/24/16 23:59 23:59 23:59 23:59 Intake Total 1642 444 900 500 Output Total 1800 1200 900 600 Balance -158 -756 0 -100 Gen: NAD HEENT: NC/AT, MMM No JVD CVS: RRR, No M/R Lungs: CTA Abd: soft NT/ND Ext: No edema, clubbing or cyanosis : [place] in place CBC, BMP 08/24/16 06:35 08/24/16 11:31 Current Medications Acetaminophen (Tylenol -) 325 mg PO Q6H PRN PRN Reason: PAIN Last Admin: 08/23/16 21:42 Dose: 325 mg Calcium Carbonate/Cholecalciferol (Os-Hang 500+D -) 1 tab PO BID [facility] Last Admin: 08/24/16 12:30 Dose: 1 tab Cefuroxime Axetil (Ceftin -) 250 mg PO DAILY [facility] Last Admin: 08/24/16 12:29 Dose: 250 mg Clonidine HCl (Catapres Tts Patch -) 0.1 mg TD Fr@10 [facility] Last Admin: 08/18/16 10:48 Dose: 0.1 mg Docusate Sodium (Colace -) 300 mg PO HS [facility] Last Admin: 08/23/16 21:40 Dose: 300 mg Folic Acid (Folic Acid -) 1 mg PO DAILY [facility] Last Admin: 08/24/16 12:30 Dose: 1 mg Heparin Sodium (Porcine) (Heparin -) 1,000 unit IVPUSH PRN PRN PRN Reason: Heparin Heparin Sodium (Porcine) (Heparin -) 5,000 unit IVPUSH PRN PRN PRN Reason: Heparin IV Flush (Picc Line Flush) 8 ml IVPUSH PRN PRN PRN Reason: Protocol Heparin Sodium/Dextrose (Heparin Infusion -) 500 mls @ 16 mls/hr IVPB TITR RAUDEL ; 800 UNITS/HR PRN Reason: Protocol Last Admin: 08/20/16 17:14 Dose: 16 mls/hr Insulin Aspart (Novolog Vial Sliding Scale -) 1 vial SQ ACHS [facility] PRN Reason: Protocol Last Admin: 08/24/16 12:31 Dose: Not Given Mirtazapine (Remeron -) 7.5 mg PO HS [facility] Last Admin: 08/23/16 21:40 Dose: 7.5 mg Multivit/Ca Carb/B Cmplx/FA/Prenat (Nephro-Katherine -) 1 tablet PO DAILY [facility] Last Admin: 08/24/16 12:30 Dose: 1 tablet Nifedipine (Procardia Xl -) 60 mg PO DAILY [facility] Last Admin: 08/24/16 12:30 Dose: 60 mg Nifedipine (Procardia Xl -) 30 mg PO DAILY@1999 [facility] Last Admin: 08/23/16 21:40 Dose: 30 mg Polyethylene Glycol (Miralax (For Daily Use) -) 17 gm PO DAILY [facility] Last Admin: 08/24/16 12:30 Dose: 17 gm Prednisone (Deltasone -) 60 mg PO DAILY [facility] Last Admin: 08/24/16 12:30 Dose: 60 mg Ranitidine HCl (Zantac -) 150 mg PO BID [facility] Last Admin: 08/24/16 12:31 Dose: 150 mg Risperidone (Risperdal -) 0.25 mg PO HS [facility] Last Admin: 08/23/16 21:40 Dose: 0.25 mg Rivastigmine Tartrate (Exelon (Nf) -) 1.5 mg PO BID [facility] Last Admin: 08/24/16 12:30 Dose: 1.5 mg Senna/Docusate Sodium (Pericolace -) 1 tablet PO HS [facility] Last Admin: 08/23/16 21:40 Dose: 1 tablet Sodium Bicarbonate (Sodium Bicarbonate -) 650 mg PO BID [facility] Last Admin: 08/24/16 12:30 Dose: 650 mg A/P 70 year old woman that is known to me with PMhx of Dementia, Hypertension, DVT, GERD, Hep C, Anemia, Anxiety, Depression who was sent in from [facility] with worsening renal function. 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 Out of the 13 glomurli, 2 were globaly sclerosed, 2 had fibrocellular cresents. Renal function has been improving with steroids and discontinuation of hydralazine. Hydralazine has been known to cause drug induced vasculitis with + KAIDEN, P-ANCA. Treatment options include discontnuation of offendin drug and steroids +/- more intensive immunosuppression Will discuss case with Rheum and PMD Continue Prednisone 60mg Daily for now no indication for MOLDING SANDER #Hx of DVT on Eliquis Eliquis is being held Repeat Renal US showed no hematomas can restart A/C now, will discuss with Heme regarding heparin vs. Eliquis #Chronic Anemia Hgb stable s/p Transfusion earlier this admission #Dementia/Agitation On Riperidone Management as per PMD #Hypertension BP not controlled Procardia increased to 60mg BID Goal BP < 140/90 #Metabolic acidosis sodium bicarb 650mg BID goal Bicarb > 22 Jhony Gordon DO
--- NOTE | 2016-08-24 20:30 | PN ---
Progress Note (short form) - Note Progress Note: Patient seen and examined No new changes clinically s/p renal niopsy 2 days ago Last Vital Signs Temp Pulse Resp BP Pulse Ox 98.4 F 84 20 169/85 96 08/24/16 18:00 08/24/16 18:00 08/24/16 18:00 08/24/16 18:00 08/24/16 08:00 Cor: RSR, No murmurs, No gallops Lungs: Clear to P&A Abd: Soft, Normal bowel sounds, No organomegaly Ext:No significant edema Skin: No rashes, Integument intact Abnormal Lab Results 08/18/16 08/24/16 08/24/16 07:15 06:35 06:35 RBC 3.41 L Hgb 10.6 L Hct 31.3 L PTT (Actin FS) 19.9 L D BUN Creatinine AST ALT Albumin Crossmatch See Detail 08/24/16 11:31 RBC Hgb Hct PTT (Actin FS) BUN 61 H Creatinine 3.3 H AST 10 L D ALT 10 L D Albumin 3.0 L Crossmatch Current Medications Acetaminophen (Tylenol -) 325 mg PO Q6H PRN PRN Reason: PAIN Last Admin: 08/23/16 21:42 Dose: 325 mg Apixaban (Eliquis -) 2.5 mg PO BID [facility] Last Admin: 08/24/16 21:55 Dose: 2.5 mg Calcium Carbonate/Cholecalciferol (Os-Hang 500+D -) 1 tab PO BID [facility] Last Admin: 08/24/16 21:54 Dose: 1 tab Cefuroxime Axetil (Ceftin -) 250 mg PO DAILY [facility] Last Admin: 08/24/16 12:29 Dose: 250 mg Clonidine HCl (Catapres Tts Patch -) 0.1 mg TD Fr@10 [facility] Last Admin: 08/18/16 10:48 Dose: 0.1 mg Docusate Sodium (Colace -) 300 mg PO HS [facility] Last Admin: 08/24/16 21:56 Dose: 300 mg Folic Acid (Folic Acid -) 1 mg PO DAILY [facility] Last Admin: 08/24/16 12:30 Dose: 1 mg IV Flush (Picc Line Flush) 8 ml IVPUSH PRN PRN PRN Reason: Protocol Insulin Aspart (Novolog Vial Sliding Scale -) 1 vial SQ ACHS [facility] PRN Reason: Protocol Last Admin: 08/24/16 21:55 Dose: 2 units Mirtazapine (Remeron -) 7.5 mg PO [facility] Last Admin: 08/24/16 21:54 Dose: 7.5 mg Multivit/Ca Carb/B Cmplx/FA/Prenat (Nephro-Katherine -) 1 tablet PO DAILY [facility] Last Admin: 08/24/16 12:30 Dose: 1 tablet Nifedipine (Procardia Xl -) 60 mg PO BID [facility] Last Admin: 08/24/16 21:55 Dose: 60 mg Polyethylene Glycol (Miralax (For Daily Use) -) 17 gm PO DAILY [facility] Last Admin: 08/24/16 12:30 Dose: 17 gm Prednisone (Deltasone -) 60 mg PO DAILY [facility] Last Admin: 08/24/16 12:30 Dose: 60 mg Ranitidine HCl (Zantac -) 150 mg PO BID [facility] Last Admin: 08/24/16 21:54 Dose: 150 mg Risperidone (Risperdal -) 0.25 mg PO [facility] Last Admin: 08/24/16 21:56 Dose: 0.25 mg Rivastigmine Tartrate (Exelon (Nf) -) 1.5 mg PO BID [facility] Last Admin: 08/24/16 21:56 Dose: 1.5 mg Senna/Docusate Sodium (Pericolace -) 1 tablet PO [facility] Last Admin: 08/24/16 21:54 Dose: 1 tablet Sodium Bicarbonate (Sodium Bicarbonate -) 650 mg PO BID [facility] Last Admin: 08/24/16 21:54 Dose: 650 mg A/P 70 year old woman with PMhx of Dementia, Hypertension, DVT, GERD, Hep C, Anemia , Anxiety, Depression who was sent in from [facility] with worsening renal function.Also with UTI h/o RLE DVT 11/01 --?/ recurrent at that time--s/p ivc filter. has been on eliquis. Last dose --08/17--2.5mg bid s/p remal bx 2 days ago as her cr cl <15ml/min. would prefer heparin bridging to coumafin over NOACs anemia--anemia of chronic disease?---due to SHARI from autoimmune pathology---++/ KAIDEN/++ ANCA stooloccult --neg. iron studies c/w anemia of chronic disease kristi/haptoglobin--nl--unlikely hemolysis. LDH--269 SIFE--faint band s/p PRBCs Hgb stab;e post pulse steroids will monitor
[2016-08-24] MEDS: SENNOSIDES/DOCUSATE COMBO (SENNA PLUS) TABLET (UD) PO SCH (21:54)
[2016-08-24] MEDS: MIRTAZAPINE 15 MG TABLET (FP) PO SCH (21:54)
[2016-08-24] MEDS: NIFEdipine E.R 60 MG TABLET (UD) PO SCH (21:55)
[2016-08-24] MEDS: APIXABAN 2.5 MG TABLET PO SCH (21:55)
[2016-08-24] MEDS: risperiDONE 0.25 MG TABLET (FP) PO SCH (21:56)
[2016-08-24] MEDS: DOCUSATE SODIUM 100 MG CAPSULE (FP) PO SCH (21:56)
[2016-08-25] MEDS: INSULIN SLIDING SCALE (NOVOLOG) 1 VIAL SQ SCH (06:44)
--- NOTE | 2016-08-25 08:34 | DS ---
Physical Examination Vital Signs: Vital Signs Temperature 98.6 F 08/25/16 06:00 Pulse Rate 69 08/25/16 06:00 Respiratory Rate 20 08/25/16 06:00 Blood Pressure 143/74 08/25/16 06:00 O2 Sat by Pulse Oximetry (%) 95 08/24/16 21:00 Cardiovascular: Yes: Regular Rate and Rhythm Respiratory: Yes: Regular, CTA Bilaterally Gastrointestinal: Yes: Normal Bowel Sounds, Soft Edema: No Neurological: Yes: Alert, Confusion Discharge Summary Reason For Visit: ACUTE RENAL FAILURE Current Active Problems ANCA-positive vasculitis (Acute) Acute on chronic renal failure (Acute) Acute renal failure (Acute) Dehydration (Acute) Dementia (Acute) Failure to thrive in adult (Acute) Lactic acid acidosis (Acute) Poor venous access (Acute) UTI (urinary tract infection) (Acute) Hospital Course: - Problems (1) Acute renal failure Assessment/Plan: PER RENAL/rheumotolgy 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 Out of the 13 glomurli, 2 were globaly sclerosed, 2 had fibrocellular cresents. Renal function has been improving with steroids and discontinuation of hydralazine. Hydralazine has been known to cause drug induced vasculitis with + KAIDEN, P-ANCA. Treatment options include discontnuation of offendin drug and steroids +/- more intensive immunosuppression Will discuss case with Rheum and PMD Continue Prednisone 60mg Daily for now Code(s): N17.9 - ACUTE KIDNEY FAILURE, UNSPECIFIED Qualifiers: Acute renal failure type: unspecified Qualified Code(s): N17.9 - Acute kidney failure, unspecified (2) DVT (deep venous thrombosis) Assessment/Plan: On ELIQUIS OFF HEPARIN Code(s): I82.409 - ACUTE EMBOLISM AND THOMBOS UNSP DEEP VN UNSP LOWER EXTREMITY (3) Dementia Assessment/Plan: CT OF HEAD noted--nad Code(s): F03.90 - UNSPECIFIED DEMENTIA WITHOUT BEHAVIORAL DISTURBANCE Qualifiers: Dementia type: unspecified type Dementia behavioral disturbance: without behavioral disturbance Qualified Code(s): F03.90 - Unspecified dementia without behavioral disturbance Condition: Stable - Instructions Diet, Activity, Other Instructions: BMP EVERY SUNDAY Disposition: [facility] FACILITY - Home Medications Comprehensive Discharge Medication List: Ambulatory Orders Acetaminophen 325 mg PO Q6H PRN 07/14/16 Clonidine Patch [Catapres Tts Patch -] 0.1 mg TD WEEKLY 07/14/16 Docusate Sodium 300 mg PO HS 07/14/16 Folic Acid 1 mg PO DAILY 07/14/16 Polyethylene Glycol 3350 [Miralax 119 gm Btl -] 17 gm PO DAILY 07/14/16 Ranitidine HCl [Zantac] 150 mg PO BID 07/14/16 Rivastigmine Tartrate [Rivastigmine] 1.5 mg PO BID 07/14/16 Sennosides/Docusate Sodium [Senna Laxative Tablet] 1 each PO HS 07/14/16 Apixaban [Eliquis] 2.5 mg PO BID #30 tablet 07/20/16 Mirtazapine [Remeron -] 7.5 mg PO HS tablet 07/20/16 Calcium Carbonate/Vitamin D3 [Oyster Shell 500-Vit D3 200 Tb] 1 tab PO BID 08/14 Risperidone 1 tab PO HS 08/14/16 Cefuroxime Axetil [Ceftin -] 250 mg PO DAILY tablet 08/25/16 Nifedipine ER [Procardia XL -] 60 mg PO BID tab.er.24 08/25/16 Prednisone [Deltasone -] 60 mg PO DAILY tablet 08/25/16
[2016-08-25 08:52] LABS: BASOPHIL 0.2 % (0-2.0); EOSINOPHIL 0.1 % (0-4.5); MCH 30.8 pg (25.7-33.7); MCHC 33.6 g/dl (32.0-36.0); MEAN CELL VOLUME 91.6 fl (80-96); MEAN PLT VOLUME 7.6 fl (7.5-11.1); NEUTROPHILS 78.7 % (42.8-82.8); PLATELET COUNT 241 K/MM3 (134-434); RDW 15.9 % (11.6-15.6); WHITE BLOOD COUNT 9.1 K/mm3 (4.0-10.0)
[2016-08-25 09:18] LABS: CALCIUM 9.4 mg/dL (8.5-10.1); MAGNESIUM 1.9 mg/dL (1.8-2.4)
[2016-08-25 09:22] LABS: BILIRUBIN,TOTAL 0.4 mg/dL (0.2-1.0); CREATININE 3.1 mg/dL (0.55-1.02); TOT PROT 6.7 g/dl (6.4-8.2)
[2016-08-25] MEDS ORDERED: PT OWN MED DRAWER 7, Y5N ONE (09:24)
[2016-08-25] MEDS: CALCIUM 500MG/VIT-D 200 UNITS COMBO TABLET (FP) PO SCH (09:30)
[2016-08-25] MEDS: SODIUM BICARBONATE 650 MG TABLET PO SCH (09:30)
[2016-08-25] MEDS: predniSONE 20 MG TABLET (UD) PO SCH (09:30)
[2016-08-25] MEDS: FOLIC ACID 1 MG TABLET (FP) PO SCH (09:31)
[2016-08-25] MEDS: RANITIDINE HCL 150 MG TABLET (FP) PO SCH (09:31)
[2016-08-25] MEDS: RIVASTIGMINE TARTRATE 1.5 MG CAPSULE PO SCH (09:31)
[2016-08-25] MEDS: APIXABAN 2.5 MG TABLET PO SCH (09:31)
[2016-08-25] MEDS: VITAMIN B COMP W-C 1 EA TABLET PO SCH (09:31)
[2016-08-25] MEDS: NIFEdipine E.R 60 MG TABLET (UD) PO SCH (09:32)
[2016-08-25] MEDS: cloNIDine-TTS 0.1 MG/24 HRS PATCH.TDWK TD SCH (09:32)
[2016-08-25] MEDS: POLYETHYLENE GLYCOL 3350 119 GM BTL PO SCH (09:32)
[2016-08-25] MEDS: CEFUROXIME AXETIL 250 MG TABLET PO SCH (09:32)
--- NOTE | 2016-08-25 11:06 | PN ---
Progress Note (short form) - Note Progress Note: Renal Follow up for SHARI Pt seen and examined at the bedside no complaints hernandez in place denies any chest pain or difficulty breathing for discharge to [facility] today Vital Signs Temperature 98.6 F 08/25/16 06:00 Pulse Rate 69 08/25/16 06:00 Respiratory Rate 20 08/25/16 06:00 Blood Pressure 143/74 08/25/16 06:00 O2 Sat by Pulse Oximetry (%) 95 08/24/16 21:00 Intake & Output 08/22/16 08/23/16 08/24/16 08/25/16 23:59 23:59 23:59 23:59 Intake Total 444 900 910 200 Output Total 2635 313 8119 200 Balance -756 0 -190 0 Gen: NAD HEENT: NC/AT, MMM No JVD CVS: RRR, No M/R Lungs: CTA Abd: soft NT/ND Ext: No edema, clubbing or cyanosis : Hernandez in place CBC, BMP 08/25/16 07:00 08/25/16 07:00 Current Medications Acetaminophen (Tylenol -) 325 mg PO Q6H PRN PRN Reason: PAIN Last Admin: 08/23/16 21:42 Dose: 325 mg Apixaban (Eliquis -) 2.5 mg PO BID [facility] Last Admin: 08/25/16 09:31 Dose: 2.5 mg Calcium Carbonate/Cholecalciferol (Os-Hang 500+D -) 1 tab PO BID [facility] Last Admin: 08/25/16 09:30 Dose: 1 tab Cefuroxime Axetil (Ceftin -) 250 mg PO DAILY [facility] Last Admin: 08/25/16 09:32 Dose: 250 mg Clonidine HCl (Catapres Tts Patch -) 0.1 mg TD Fr@10 [facility] Last Admin: 08/25/16 09:32 Dose: 0.1 mg Docusate Sodium (Colace -) 300 mg PO HS [facility] Last Admin: 08/24/16 21:56 Dose: 300 mg Folic Acid (Folic Acid -) 1 mg PO DAILY [facility] Last Admin: 08/25/16 09:31 Dose: 1 mg IV Flush (Picc Line Flush) 8 ml IVPUSH PRN PRN PRN Reason: Protocol Insulin Aspart (Novolog Vial Sliding Scale -) 1 vial SQ ACHS [facility] PRN Reason: Protocol Last Admin: 08/25/16 06:44 Dose: Not Given Mirtazapine (Remeron -) 7.5 mg PO [facility] Last Admin: 08/24/16 21:54 Dose: 7.5 mg Multivit/Ca Carb/B Cmplx/FA/Prenat (Nephro-Katherine -) 1 tablet PO DAILY [facility] Last Admin: 08/25/16 09:31 Dose: 1 tablet Nifedipine (Procardia Xl -) 60 mg PO BID [facility] Last Admin: 08/25/16 09:32 Dose: 60 mg Polyethylene Glycol (Miralax (For Daily Use) -) 17 gm PO DAILY [facility] Last Admin: 08/25/16 09:32 Dose: 17 gm Prednisone (Deltasone -) 60 mg PO DAILY [facility] Last Admin: 08/25/16 09:30 Dose: 60 mg Ranitidine HCl (Zantac -) 150 mg PO BID [facility] Last Admin: 08/25/16 09:31 Dose: 150 mg Risperidone (Risperdal -) 0.25 mg PO [facility] Last Admin: 08/24/16 21:56 Dose: 0.25 mg Rivastigmine Tartrate (Exelon (Nf) -) 1.5 mg PO BID [facility] Last Admin: 08/25/16 09:31 Dose: 1.5 mg Senna/Docusate Sodium (Pericolace -) 1 tablet PO [facility] Last Admin: 08/24/16 21:54 Dose: 1 tablet Sodium Bicarbonate (Sodium Bicarbonate -) 650 mg PO BID [facility] Last Admin: 08/25/16 09:30 Dose: 650 mg A/P 70 year old woman that is known to me with PMhx of Dementia, Hypertension, DVT, GERD, Hep C, Anemia, Anxiety, Depression who was sent in from [facility] with worsening renal function. 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 Out of the 13 glomurli, 2 were globaly sclerosed, 2 had fibrocellular cresents. Renal function has been improving with steroids and discontinuation of hydralazine. Hydralazine has been known to cause drug induced vasculitis with + KAIDEN, P-ANCA. Will continue Prednisone 60mg Daily for now Repeat BMP on Sunday at [facility] - if renal function continues to improve can maintain on steroids alone until renal function stablizes. If no further improvement seen may need further immunosuppresive therapy. Will discuss with Dr. Correa Will follow at Herminio Gordon DO
[2016-08-25 11:20] VITALS: BP 151/77; PULSE 64; TEMP 98.2
[2016-08-29 00:15] LABS: % CRYO <1.0 % (None detected)
--- NOTE | 2016-09-11 15:44 | PATH ---
Surgical Pathology Report Patient Name: LILIAN JADE [facility]. Rec. #: [id number] /Age/Gender: 1945 (Age: 70) / F Account: [id number] Location: [address] [place] [address] Taken: 08/22/2016 Received: 08/22/2016 Reported: 09/11/2016 Physicians: Rossana Peñaloza M.D. Specimen(s) Received RENAL BIOPSY Clinical History 70-year-old female with increasing serum creatinine from 2.8 mg/dl on 07/14/16 to 3.1 and currently to 5.9 mg/dl. PMH is significant for HTN (for which the patient is on Hydralazine), questionable HCV (current Abs are negative), anemia, dementia and DVT. There is no history of endocarditis or cocaine use. Laboratory workup reveals urine protein/creatinine: 1.9 g/g, active urine sediment with 90 RBCs/hpf, urine culture positive for E coli. KAIDEN is positive (1:1280). 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 C3 levels are mildly decreased (50) and C4 levels are borderline low (16). Remaining serologies including HBV and RPR are negative or normal. Before the biopsy, Hydralazine was discontinued and IV steroids were given. As a result, serum creatinine decreased to 3.9 mg/dl. Intraoperative Consult Diagnosis Kidney biopsy: few glomeruli seen. Per Dr. Lerner 08/22/16. Final Diagnosis RENAL BIOPSY ([facility] KC17-10): 1. FOCAL NECROTIZING AND CRESCENTIC GLOMERULONEPHRITIS WITH LARGELY MESANGIAL IMMUNE-TYPE STAINING ([id number]/CLINICAL). (SEE COMMENT). 2. TUBULAR ATROPHY AND INTERSTITIAL FIBROSIS, MILD WITH MINIMAL TO MILD TUBULOINTERSTITIAL INFLAMMATION, FOCAL ACUTE TUBULAR INJURY AND SCATTERED RED BLOOD CELL CASTS. 3. ARTERIO- AND ARTERIOLOSCLEROSIS, MILD TO MODERATE. COMMENT: Sampling for light microscopy contains thirteen glomeruli of which two are globally sclerotic, one shows cellular crescent, two display fibrocellular crescents and one contains fibrous crescent. These findings correlate with the positive MPO-ANCA which is probably the major contributing factor. 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 It is unclear whether the immune complex glomerulopathy is really minimal or whether the steroid treatment has ameliorated a potential glomerular inflammation. Importantly, the association of an immune complex mediated glomerulopathy, KAIDEN and ANCA can be the result of drug-induced reaction (such as Hydralazine). The focal tubulointerstitial inflammation and the acute tubular injury are likely related to the aggressive GN and the red blood cell casts, respectively. LIGHTMICROSCOPY: Sections are stained with H&E, PAS, trichrome and JMS. The sample shows one core of renal cortex. There are thirteen glomeruli present, of which two are globally sclerotic. Of the eleven non-globally sclerotic glomeruli, one shows a cellular crescent, two display fibrocellular crescents and one contains a fibrous crescent. The remaining glomeruli show only minimal mesangial hypercellularity and sclerosis. The glomerular capillary lumina are largely patent without significant endocapillary proliferation. The glomerular basement membranes appear of normal thickness and show scattered short double contours. Tubular atrophy and interstitial fibrosis occupy 10-15% of the cortex. Sparse to mild interstitial inflammation consisting mainly of mononuclear leukocytes is observed and is associated with occasional foci of mild tubulitis. Proximal tubules exhibit focal degenerative changes manifested by simplification of the lining epithelium and luminal ectasia. Scattered tubules contain red blood cell casts. Mild to moderate arteriosclerosis and mild to moderate arteriolosclerosis are appreciated. ELECTRON MICROSCOPY: RENAL BIOPSY WITH: A. ELECTRON DENSE DEPOSITS - MESANGIAL, SCATTERED, 1+ - SUBENDOTHELIAL, RARE, +/- B. FOOT PROCESS EFFACEMENT, DIFFUSE C. TUBULAR DEGENERATIVE CHANGES, 2-3+ CONSISTENT WITH: 1. FOCAL NECROTIZING AND CRESCENTIC GLOMERULONEPHRITIS WITH LARGELY MESANGIAL IMMUNE-TYPE STAINING ([id number]/CLINICAL). (SEE NOTE). 2. TUBULAR ATROPHY AND INTERSTITIAL FIBROSIS, MILD WITH MINIMAL TO MILD TUBULOINTERSTITIAL INFLAMMATION, FOCAL ACUTE TUBULAR INJURY AND SCATTERED RED BLOOD CELL CASTS. 3. ARTERIO AND ARTERIOLOSCLEROSIS, MILD TO MODERATE. Note: The paucity of the subendothelial deposits further support that the glomerulonephritis process is largely ANCA-mediated. See report from [facility], KC17-10. Signed by Tony Danielson M.D. Electronically Signed Patrick Lerner M.D. Microscopic Description Sections are stained with H&E, PAS, trichrome and JMS. The sample shows one core of renal cortex. There are thirteen glomeruli present, of which two are globally sclerotic. Of the eleven non-globally sclerotic glomeruli, one shows a cellular crescent, two display fibrocellular crescents and one contains a fibrous crescent. The remaining glomeruli show only minimal mesangial hypercellularity and sclerosis. The glomerular capillary lumina are largely patent without significant endocapillary proliferation. The glomerular basement membranes appear of normal thickness and show scattered short double contours. Tubular atrophy and interstitial fibrosis occupy 10-15% of the cortex. Sparse to mild interstitial inflammation consisting mainly of mononuclear leukocytes is observed and is associated with occasional foci of mild tubulitis. Proximal tubules exhibit focal degenerative changes manifested by simplification of the lining epithelium and luminal ectasia. Scattered tubules contain red blood cell casts. Mild to moderate arteriosclerosis and mild to moderate arteriolosclerosis are appreciated. Gross Description Received fresh, labeled "kidney biopsy" are 2 zambrano, cylindrical portions of soft tissue measuring 0.9 and 1.3 cm in length and averaging 0.1 cm in diameter. The specimens are divided, placed into 10% buffered formalin, Donald fixative and glutaraldehyde. The specimen is sent to [facility] for further studies. 08/22/2016 jia08/22/2016
== END 2016-08-25 11:40 | DRG 546 ==
LOC: JER 16:03 → UNDOADMIN 18:42 → JERBED 18:42 → J6S 20:36 → JERBED 20:36 → J6S 21:25 → JERBED 21:25
PROVIDERS: ADMIT Family Medicine; ATTEND Family Medicine
PROC: 30233N1 Transfusion of Nonautologous Red Blood Cells into Peripheral Vein, Percutaneous Approach (ICD-10-PCS; 2016-08-17)
PROC: 0TB03ZX Excision of Right Kidney, Percutaneous Approach, Diagnostic (ICD-10-PCS; principal; 2016-08-22)
DX: I77.6 Arteritis, unspecified (principal); E87.2 Acidosis; N39.0 Urinary tract infection, site not specified; N17.9 Acute kidney failure, unspecified; R62.7 Adult failure to thrive; F03.90 Unspecified dementia, unspecified severity, without behavioral disturbance, psychotic disturbance, mood disturbance, and anxiety; K21.9 Gastro-esophageal reflux disease without esophagitis; D64.9 Anemia, unspecified; F41.9 Anxiety disorder, unspecified; F32.9 Major depressive disorder, single episode, unspecified; Z86.718 Personal history of other venous thrombosis and embolism; E83.42 Hypomagnesemia; B96.20 Unspecified Escherichia coli [E. coli] as the cause of diseases classified elsewhere; E86.0 Dehydration; F39 Unspecified mood [affective] disorder; I12.9 Hypertensive chronic kidney disease with stage 1 through stage 4 chronic kidney disease, or unspecified chronic kidney disease; N18.9 Chronic kidney disease, unspecified; N18.3 Chronic kidney disease, stage 3 (moderate); Z79.01 Long term (current) use of anticoagulants
CPT/HCPCS: 36415; 36430; 50200; 70450-TC; 71010-TC; 76775-TC; 76856-TC; 80048; 80053; 80074; 81003; 81015; 82272; 82570; 82595; 82728; 83010; 83516; 83520; 83540; 83550; 83615; 83735; 84100; 84155; 84156; 84165; 84300; 84550; 85025; 85027; 85610; 85651; 85730; 86038; 86160; 86162; 86225; 86256; 86593; 86850; 86880; 86900; 86901; 86922; 87040; 87086; 87186; 87899; 88329; 93005; 93010; 99282-25; J0885; J1644; P9058

== ENCOUNTER 2016-09-21 09:28 | Inpatient (IN) | payer OTHER ==
--- NOTE | 2016-09-21 09:54 | PDOC ---
History of Present Illness - General Stated Complaint: FEVER Time Seen by Provider: 09/21/16 09:34 - History of Present Illness Initial Comments: 09/21/16 09:59 Patient is a 71 year old female with significant PMH of Dementia, Depression, Anxiety, HTN, DVT, Anemia, GERD & Hep C who presents to ED from [facility] with a fever. She was recently admitted last month with anemia & acute renal failure. 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 Temp was noted this AM to be 104.8 so she was sent to ED. She is a very poor historian and is not oriented to person, place or situation. She repeatedly states that her vagina is hurting her and it has been burning when she urinates. Otherwise, she is unable to respond appropriately to questions and is aggravated. Patient has a notable cough but is not expectorating sputum. Past History - Travel Traveled outside of the country in the last 30 days: No Close contact w/someone who was outside of country & ill: No - Past Medical History Allergies/Adverse Reactions: Allergies Allergy/AdvReac Type Severity Reaction Status Date / Time No Known Allergies Allergy Verified 09/21/16 09:56 Home Medications: Ambulatory Orders Acetaminophen 650 mg PO Q6H PRN 07/14/16 Clonidine Patch [Catapres Tts Patch -] 0.1 mg TD WEEKLY 07/14/16 Docusate Sodium 300 mg PO HS 07/14/16 Folic Acid 1 mg PO DAILY 07/14/16 Polyethylene Glycol 3350 [Miralax 119 gm Btl -] 17 gm PO DAILY 07/14/16 Ranitidine HCl [Zantac] 150 mg PO BID 07/14/16 Rivastigmine Tartrate [Rivastigmine] 1.5 mg PO BID 07/14/16 Sennosides/Docusate Sodium [Senna Laxative Tablet] 1 each PO HS 07/14/16 Apixaban [Eliquis] 2.5 mg PO BID #30 tablet 07/20/16 Mirtazapine [Remeron -] 7.5 mg PO HS tablet 07/20/16 Calcium Carbonate/Vitamin D3 [Oyster Shell 500-Vit D3 200 Tb] 1 tab PO BID 08/14 Nifedipine ER [Procardia XL -] 60 mg PO BID tab.er.24 08/25/16 Prednisone [Deltasone -] 60 mg PO DAILY tablet 08/25/16 Olanzapine [Zyprexa] 5 mg PO HS 09/21/16 Perphenazine [Trilafon] 2 mg PO BID 09/21/16 Cardiac Disorders: Yes (bradycardia,dvt) CHF: No Dementia: Yes Diabetes: No GI Disorders: Yes (gerd, failure to thrive) HTN: Yes Liver Disease: Yes (Hep C) Psychiatric Problems: Yes (anxiety/depression,dementia) Suicide Attempt (Hx): No - Immunization History Immunization Up to Date: Yes - Psycho/Social/Smoking Cessation Hx Anxiety: No Suicidal Ideation: No Smoking History: Never smoked Have you smoked in the past 12 months: No Number of Cigarettes Smoked Daily: 0 If you are a former smoker, when did you quit?: 5 years ago Hx Alcohol Use: No Drug/Substance Use Hx: No Substance Use Type: None Hx Substance Use Treatment: No Review of Systems - Review of Systems Able to Perform ROS?: No Is the patient limited Bahamian proficient: No *Physical Exam - Physical Exam General Appearance: Yes: Apparent Distress, Thin HEENT: positive: EOMI, DASHAWN, Normal ENT Inspection Neck: positive: Trachea midline, Normal Thyroid, Supple Respiratory/Chest: positive: Other. 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 Unable to obtain proper history other than vaginal pain & dysuria. Will reassess & await lab results. 09/21/16 11:[address] Natarajan. Will admit to [facility] for Sepsis due to UTI, Healthcare acquired pneumonia. Started on Levaquin & Zosyn. 09/21/16 11:32 Lactic acid elevated at 3.7. Will give another 500cc for a total of 1liter. *DC/Admit/Observation/Transfer Diagnosis at time of Disposition: Sepsis, Healthcare associated bacterial pneumonia, UTI (urinary tract infection ) - Discharge Dispostion Admit: Yes - Referrals Referrals: Rosa Isela Martinez MD [Primary Care Provider] -
--- NOTE | 2016-09-21 09:54 | PDOC ---
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 She had nonoliguric acute renal failure Patient was on high dose prednisone at discharge from the hospital Sent from ID for fever - Physicial Exam PE: 09/21/16 11:12 Physical exam Last Vital Signs Temp Pulse Resp BP Pulse Ox 102.7 F H 110 H 20 171/67 95 09/21/16 10:46 09/21/16 09:56 09/21/16 09:56 09/21/16 09:56 09/21/16 10:30 Patient is alert and answers yes or no to simple questions Lungs-occasional scattered rhonchi Heart regular, 100 Abdomen soft and nontender - Medical Decision Making 09/21/16 10:34 EKG Sinus tachycardia 104, left axis deviation -6 Normal AV and IV conduction time Normal QTC Septal Q's are noted When compared to the EKG of 08/14/16 Today's EKG is similar to the prior EKG 09/21/16 11:13 Laboratory Results - last 24 hr 09/21/16 09/21/16 10:40 10:40 WBC 24.1 H D RBC 3.18 L Hgb 9.9 L Hct 29.7 L MCV 93.5 MCHC 33.3 RDW 16.0 H Plt Count 242 MPV 7.8 Neutrophils % Y Lymphocytes % Y VBG pH 7.28 L D POC VBG pCO2 48.1 D POC VBG pO2 24.0 L D Straight catheter urine appears cloudy 09/21/16 11:24 Chest [id number] right upper lobe infiltrate Catheterized UA-probable UTI She has a prior UTI that was sensitive to Zosyn Imp -Healthcare associated pneumonia-, UTI, sepsis in pt on prednisone would start with levaquin and zosyn
[2016-09-21] MEDS ORDERED: ACETAMINOPHEN 1000 MG/100 ML VIAL (NON FORMULARY) IVPB ONE (10:38)
[2016-09-21] MEDS ORDERED: ACETAMINOPHEN 325 MG TABLET (FP) PO ONE (10:39)
[2016-09-21] MEDS ORDERED: ACETAMINOPHEN 325 MG TABLET (FP) ONE (10:40)
[2016-09-21 10:54] LABS: VENOUS BLOOD GAS HCO3 21.7 meq/L (22-29)
[2016-09-21 10:56] LABS: URINE APPEARANCE CLOUDY; URINE BILIRUBIN NEGATIVE (NEGATIVE); URINE COLOR YELLOW; URINE GLUCOSE (UA) NEGATIVE (NEGATIVE); URINE KETONE NEGATIVE (NEGATIVE); URINE NITRITE NEGATIVE (NEGATIVE); URINE UROBILINOGEN NEGATIVE E.U./dl (0.2-1.0)
[2016-09-21 10:56] LABS: VENOUS PH 7.28 (7.31-7.41)
[2016-09-21 10:58] LABS: MCH 31.1 pg (25.7-33.7); MCHC 33.3 g/dl (32.0-36.0); MEAN CELL VOLUME 93.5 fl (80-96); MEAN PLT VOLUME 7.8 fl (7.5-11.1); PLATELET COUNT 242 K/MM3 (134-434); WHITE BLOOD COUNT 24.1 K/mm3 (4.0-10.0)
[2016-09-21] MEDS ORDERED: SODIUM CHLORIDE 500 ML IV STA (11:03)
[2016-09-21] MEDS ORDERED: HYDROmorphone HCL CARPU-JECT 1 MG/1 ML DISP.SYRIN IM ONE (11:04)
[2016-09-21 11:14] LABS: URINE BLOOD 3+ (NEGATIVE); URINE LEUK ESTERASE 2+ (NEGATIVE); URINE PROTEIN 2+ (NEGATIVE)
[2016-09-21 11:17] LABS: ALBUMIN 2.8 g/dl (3.4-5.0); CALCIUM 9.2 mg/dL (8.5-10.1); CREATININE 2.2 mg/dL (0.55-1.02)
[2016-09-21 11:20] LABS: URINE BACTERIA MANY /hpf (NONE SEEN); URINE MUCUS RARE; URINE RBC 17 /hpf (0-3); URINE WBC 31 /hpf (3-5); YEAST RARE
[2016-09-21 11:21] LABS: BILIRUBIN,TOTAL 0.5 mg/dL (0.2-1.0); TOT PROT 6.6 g/dl (6.4-8.2); TROPONIN I 0.03 ng/ml (0.00-0.05)
[2016-09-21] MEDS ORDERED: LEVOFLOXACIN 500 MG IVPB 100 ML IVPB ONE ×2 (11:23→11:38)
[2016-09-21] MEDS ORDERED: PIPERACILLIN/TAZOB 3.375 GM/50 ML PRE-DOCKED IVPB SCH (11:30)
--- NOTE | 2016-09-21 11:34 | HP ---
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 ) Heme/Onc: Yes: Anemia Psych: Yes: Anxiety, Depression - Smoking History Smoking history: Never smoked Have you smoked in the past 12 months: No Aproximately how many cigarettes per day: 0 If you are a former smoker, when did you quit?: 5 years ago - Alcohol/Substance Use Hx Alcohol Use: No - Social History History of Recent Travel: No Home Medications - Allergies Allergies/Adverse Reactions: Allergies Allergy/AdvReac Type Severity Reaction Status Date / Time No Known Allergies Allergy Verified 09/21/16 09:56 - Home Medications Home Medications: Ambulatory Orders Acetaminophen 650 mg PO Q6H PRN 07/14/16 Clonidine Patch [Catapres Tts Patch -] 0.1 mg TD WEEKLY 07/14/16 Docusate Sodium 300 mg PO HS 07/14/16 Folic Acid 1 mg PO DAILY 07/14/16 Polyethylene Glycol 3350 [Miralax 119 gm Btl -] 17 gm PO DAILY 07/14/16 Ranitidine HCl [Zantac] 150 mg PO BID 07/14/16 Rivastigmine Tartrate [Rivastigmine] 1.5 mg PO BID 07/14/16 Sennosides/Docusate Sodium [Senna Laxative Tablet] 1 each PO HS 07/14/16 Apixaban [Eliquis] 2.5 mg PO BID #30 tablet 07/20/16 Mirtazapine [Remeron -] 7.5 mg PO HS tablet 07/20/16 Calcium Carbonate/Vitamin D3 [Oyster Shell 500-Vit D3 200 Tb] 1 tab PO BID 08/14 Nifedipine ER [Procardia XL -] 60 mg PO BID tab.er.24 08/25/16 Prednisone [Deltasone -] 60 mg PO DAILY tablet 08/25/16 Olanzapine [Zyprexa] 5 mg PO HS 09/21/16 Perphenazine [Trilafon] 2 mg PO BID 09/21/16 Review of Systems - Review of Systems Constitutional: reports: Other (not feeling well) Genitourinary: reports: Other (vaginal burning) Physical Examination Vital Signs: Vital Signs Temperature 102.7 F H 09/21/16 10:46 Pulse Rate 110 H 09/21/16 09:56 Respiratory Rate 20 09/21/16 09:56 Blood Pressure 171/67 09/21/16 09:56 O2 Sat by Pulse Oximetry (%) 95 09/21/16 10:30 Constitutional: Yes: Calm Neck: Yes: Trachea Midline Cardiovascular: Yes: Regular Rate and Rhythm, S1, S2 Respiratory: Yes: Diminished (on right lower side) Gastrointestinal: Yes: Normal Bowel Sounds, Soft Edema: No Labs: CBC, BMP 09/21/16 10:40 09/21/16 10:40 Imaging - Results Chest X-ray: Report Reviewed (increased marking in right costophrenic area) Problem List - Problems (1) UTI (urinary tract infection) Assessment/Plan: lwukocytosis and lactic acid elevated will trend iv abx awaitn culture ID Code(s): N39.0 - URINARY TRACT INFECTION, SITE NOT SPECIFIED (2) ANCA-positive vasculitis Assessment/Plan: prednisone 30mg daily iv hydration gien cr was 1.8 yesterday abd today it is 2.2 Code(s): I77.6 - ARTERITIS, UNSPECIFIED (3) Anemia Assessment/Plan: monitior h/h Code(s): D64.9 - ANEMIA, UNSPECIFIED Qualifiers: Anemia type: unspecified type Qualified Code(s): D64.9 - Anemia, unspecified (4) HTN (hypertension) Assessment/Plan: procardia and clonidine Code(s): I10 - ESSENTIAL (PRIMARY) HYPERTENSION (5) Vaginitis Assessment/Plan: diflucan Code(s): N76.0 - ACUTE VAGINITIS (6) DVT (deep venous thrombosis) Assessment/Plan: on eleliquis Code(s): I82.409 - ACUTE EMBOLISM AND THOMBOS UNSP DEEP VN UNSP LOWER EXTREMITY
[2016-09-21 11:35] LABS: INR 1.43 (0.82-1.09); PROTHROMBIN TIME (PATIENT) 15.9 SEC (9.98-11.88)
[2016-09-21 11:38] LABS: ACTIVATED PTT 33.1 SECONDS (26.9-34.4)
[2016-09-21] MEDS ORDERED: PIPERACILLIN/TAZOB 3.375 GM 50 ML IVPB ONE (11:38)
[2016-09-21 12:15] VITALS: BMI 22.0
[2016-09-21] MEDS ORDERED: SODIUM CHLORIDE 1,000 ML IV SCH (13:30)
--- NOTE | 2016-09-21 14:35 | PN ---
Progress Note, Physician Chief Complaint: ID Fever 102.6 on high dose prednisone 60mg for vasculitis Couph and chest congestion - Current Medication List Current Medications: Active Medications Acetaminophen (Tylenol -) 650 mg PO Q6H PRN PRN Reason: FEVER OR PAIN Apixaban (Eliquis -) 2.5 mg PO BID [facility] Clonidine HCl (Catapres Tts Patch -) 0.1 mg TD Q7D@1000 [facility] Fluconazole (Diflucan -) 100 mg PO DAILY [facility] Sodium Chloride (Normal Saline -) 1,000 mls @ 50 mls/hr IV ASDIR [facility] Stop: 09/22/16 13:24 Ceftriaxone Sodium 1 gm/ (Dextrose) 50 mls @ 100 mls/hr IVPB DAILY [facility] Nifedipine (Procardia Xl -) 60 mg PO DAILY [facility] Olanzapine (Zyprexa -) 5 mg PO HS [facility] Perphenazine (Trilafon) 2 mg PO BID [facility] - Objective Vital Signs: Vital Signs Temperature 98.5 F 09/21/16 12:02 Pulse Rate 80 09/21/16 12:02 Respiratory Rate 14 09/21/16 12:02 Blood Pressure 143/63 09/21/16 12:02 O2 Sat by Pulse Oximetry (%) 100 09/21/16 12:02 Constitutional: Yes: Thin HENT: No: Thrush Cardiovascular: Yes: S1, S2 Respiratory: Yes: WNL, Regular, CTA Bilaterally Gastrointestinal: Yes: Soft. No: Tenderness Edema: No Labs: INR, PTT INR 1.43 (0.82-1.09) H D 09/21/16 10:40 Problem List - Problems (1) Sepsis Code(s): A41.9 - SEPSIS, UNSPECIFIED ORGANISM (2) UTI (urinary tract infection) Code(s): N39.0 - URINARY TRACT INFECTION, SITE NOT SPECIFIED Assessment/Plan Laboratory Tests 09/21/16 09/21/16 09/21/16 10:40 10:40 10:45 WBC 24.1 H D RBC 3.18 L Hct 29.7 L Plt Count 242 BUN 75 H Creatinine 2.2 H D Creat Clearance w eGFR 21.94 Lactic Acid Ur Leukocyte Esterase 2+ H Urine RBC 17 Urine Bacteria Many 09/21/16 10:45 WBC RBC Hct Plt Count BUN Creatinine Creat Clearance w eGFR Lactic Acid 3.747 H* Ur Leukocyte Esterase Urine RBC Urine Bacteria Assessment Fever urinary tract infection ? Pneumonia rule out opportunistic Vasculitits Plan Ceftriaxone Blood cultures Sputum c/s CT chest Adair HUGHES
[2016-09-21] MEDS ORDERED: PT OWN MED DRAWER 7, Y5N ONE ×2 (15:16→21:34)
[2016-09-21] MEDS: NIFEdipine E.R 60 MG TABLET (UD) PO SCH (15:18)
--- NOTE | 2016-09-21 15:26 | CONSULT ---
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 Pt has been on Oral Prednisone 60mg for treatment of the vasculitis with improvement in her serum Cr to 1.8 (earlier this week). Pt denies any dysuria, flank pain, cough, SOB. No rash. Reports good urine output. No gross hematuria. No INGRAM, confusion or lethargy. Pt complains of burning in her vagina. PMhx: as above Allergies: NKDA Family Hx: NC Social Hx: No T/A/D ROS: as per HPI, all other pertinent ros negative Home Meds: Medication Instructions Recorded Acetaminophen 650 mg PO Q6H PRN 07/14/16 Clonidine Patch [Catapres Tts 0.1 mg TD WEEKLY 07/14/16 Patch -] Docusate Sodium 300 mg PO HS 07/14/16 Folic Acid 1 mg PO DAILY 07/14/16 Polyethylene Glycol 3350 [Miralax 17 gm PO DAILY 07/14/16 119 gm Btl -] Ranitidine HCl [Zantac] 150 mg PO BID 07/14/16 Rivastigmine Tartrate 1.5 mg PO BID 07/14/16 [Rivastigmine] Sennosides/Docusate Sodium [Senna 1 each PO HS 07/14/16 Laxative Tablet] Apixaban [Eliquis] 2.5 mg PO BID #30 tablet 07/20/16 Mirtazapine [Remeron -] 7.5 mg PO HS tablet 07/20/16 Calcium Carbonate/Vitamin D3 1 tab PO BID 08/14/16 [Oyster Shell 500-Vit D3 200 Tb] Nifedipine ER [Procardia XL -] 60 mg PO BID tab.er.24 08/25/16 Prednisone [Deltasone -] 60 mg PO DAILY tablet 08/25/16 Olanzapine [Zyprexa] 5 mg PO HS 09/21/16 Perphenazine [Trilafon] 2 mg PO BID 09/21/16 Vital Signs Temperature 98.5 F 09/21/16 12:02 Pulse Rate 80 09/21/16 12:02 Respiratory Rate 14 09/21/16 12:02 Blood Pressure 143/63 09/21/16 12:02 O2 Sat by Pulse Oximetry (%) 100 09/21/16 12:02 Gen: NAD, awake and alert HEENT: NC/AT, Dry MM, No JVD CVS: RRR, Dec BS right lung base Abd: soft NT/ND Ext: No edema, clubbing or cyanosis : No bladder distension Neuro:AAOx3, no focal defects CBC, BMP 09/21/16 10:40 09/21/16 10:40 Current Medications Acetaminophen (Tylenol -) 650 mg PO Q6H PRN PRN Reason: FEVER OR PAIN Apixaban (Eliquis -) 2.5 mg PO BID [facility] Clonidine HCl (Catapres Tts Patch -) 0.1 mg TD Q7D@1000 [facility] Fluconazole (Diflucan -) 100 mg PO DAILY [facility] Sodium Chloride (Normal Saline -) 1,000 mls @ 50 mls/hr IV ASDIR [facility] Stop: 09/22/16 13:24 Ceftriaxone Sodium 1 gm/ (Dextrose) 50 mls @ 100 mls/hr IVPB DAILY [facility] Nifedipine (Procardia Xl -) 60 mg PO DAILY [facility] Last Admin: 09/21/16 15:18 Dose: 60 mg Olanzapine (Zyprexa -) 5 mg PO HS [facility] Perphenazine (Trilafon) 2 mg PO BID [facility] A/P 71 year old woman with PMhx of 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 (peak Cr 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), Dementia, Hx of Hep C, HTN who presented from [facility] for Fever and chest congestion with BUN/Cr of 75/2.2 #ANCA Vasculitis/SHARI Cr elevated from low of 1.8 earlier this week Etiology of acute decrease in renal function likely related to hypovolemia/ renal hypoperfusion in setting of UTI/PNA Would continue IVF: NS @83cc per hour for 24 hours Check UPCR BUN elevated but pt without uremia (steroids likely contributed to high bun) s/p 4 weeks of Prednisone at 1mg/kg, will taper dose by 10mg to 50mg Daily for now Trend BUN/Cr #SIRS/UTI/PNA/Leukocytosis F/u blood and urine cultures ID following for CT of the Chest w/o IV contrast #Anemia likely due to CKD/Chronic disease Check iron studies no indication for transfusion #Hypertension Continue Clonidine path and Procardia XL Goal BP < 140/90 Thank you Will follow Jhony Gordon DO
--- NOTE | 2016-09-21 16:13 | CONS ---
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 She has been on prednisone and in the alf has a 104 fever. She has been treated with pansensitive Escherichia coli UTIs in the recent past. She noted some chest congestion and not feeling well along with some burning in the vaginal area. She is a poor historian but denies any dysuria or vaginal discharge. She was given a dose of piperacillin and tazobactam, and I am asked to see her for further evaluation. At the current time, she is in no acute distress, and I had difficulty doing both history and physical as she was generally uncooperative not wanting to be moved in bed at all. PAST MEDICAL HISTORY: Includes dementia, hypertension, DVT, hepatitis C, depression, and recent diagnosis of rapidly progressive glomerulonephritis hydralazine induced. MEDICATIONS: Include clonidine, ranitidine, Eliquis, nifedipine, and prednisone possibly 60 mg daily. ALLERGIES: None known. SOCIAL HISTORY: Former smoker. Gave this up 5 years ago with no history of substance abuse. [facility] resident currently. FAMILY HISTORY: Unobtainable from patient. REVIEW OF SYSTEMS: Respiratory: Some chest congestion. Mild cough. No shortness of breath. Cardiac: No chest pain, palpitations, syncope. Gastrointestinal: No nausea, vomiting, abdominal pain, diarrhea. Genitourinary: No dysuria, hematuria, or urinary frequency. PHYSICAL EXAMINATION: Vital Signs: Her temperature in the ER is 102.7, pulse 110, respirations 20, blood pressure 170/67. Neck: Supple without adenopathy. Lungs: Clear P and A. Heart: S1, S2. Regular rhythm without audible murmur. Abdomen: Soft, nontender without hepatosplenomegaly. No guarding or rebound. Extremities: Without clubbing, cyanosis, or edema. DIAGNOSTIC DATA: The white count was 24,000, hemoglobin 9.9, platelets 242 with 19% bands, INR 1.43, BUN 75, creatinine 2.2, lactic acid 3.7. Urinalysis: 2+ leukocyte esterase, 17 RBCs, 31 WBCs. Chest x-ray shows some increased upper lobe markings. Medial aspect of the right upper lobe concerning for infectious process. 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 Additional findings include chest congestion and mild cough with an abnormal x-ray. Prior x-rays suggest underlying chronic obstructive pulmonary disease. Given her cough and chest x-ray findings and being on steroids, I would suggest a CAT scan of the chest for further evaluation of lung markings seen as the patient is immunosuppressed given high-dose steroids and would rule out pneumonia including opportunistic infections which could be missed on CT Vanco Zosyfeng Azithromycin LGA AMY NINO M.D. KENDRICK/[id number] MTDD
[2016-09-21] MEDS: CEFTRIAXONE 50 ML IVPB SCH (16:58)
[2016-09-21] MEDS: SODIUM CHLORIDE 1,000 ML IV SCH (16:58)
[2016-09-21] MEDS: FLUCONAZOLE 100 MG TABLET (UD) PO SCH (17:20)
[2016-09-21] MEDS: predniSONE 20 MG TABLET (UD) PO SCH (17:22)
--- NOTE | 2016-09-21 17:28 | EKG ---
Test Reason : Blood Pressure : / mmHG Vent. Rate : 104 BPM Atrial Rate : 104 BPM P-R Int : 118 ms QRS Dur : 072 ms QT Int : 320 ms P-R-T Axes : 081 -06 080 degrees QTc Int : 420 ms POOR DATA QUALITY, INTERPRETATION MAY BE ADVERSELY AFFECTED SINUS TACHYCARDIA POSSIBLE LEFT ATRIAL ENLARGEMENT SEPTAL INFARCT , AGE UNDETERMINED ABNORMAL ECG WHEN COMPARED WITH ECG OF 14-AUG-2016 16:26, SEPTAL INFARCT IS NOW PRESENT T WAVE INVERSION NOW EVIDENT IN LATERAL LEADS Confirmed by FABIANO ENGLAND MD ([id number]) on 09/21/2016 5:28:06 PM Referred By: Confirmed By:FABIANO ENGLAND MD
[2016-09-21] MEDS: APIXABAN 2.5 MG TABLET PO SCH (21:45)
[2016-09-21] MEDS: ACETAMINOPHEN 325 MG TABLET (FP) PO PRN (21:46)
[2016-09-21] MEDS: PERPHENAZINE 2 MG TABLET PO SCH (21:46)
[2016-09-21] MEDS: OLANZapine 5 MG TABLET PO SCH (21:46)
[2016-09-22] MEDS ORDERED: FLUCONAZOLE 50 MG TABLET PO ONE (04:00)
[2016-09-22] MEDS: CLOTRIMAZOLE 1% CREAM 15 GM TUBE TP SCH ×3 (05:11→21:56)
[2016-09-22 07:11] LABS: BASOPHIL 0.1 % (0-2.0); MCH 30.4 pg (25.7-33.7); MCHC 32.8 g/dl (32.0-36.0); MEAN CELL VOLUME 92.5 fl (80-96); MEAN PLT VOLUME 7.1 fl (7.5-11.1); NEUTROPHILS 92.9 % (42.8-82.8); PLATELET COUNT 193 K/MM3 (134-434); RDW 15.6 % (11.6-15.6)
--- NOTE | 2016-09-22 07:41 | PN ---
Progress Note, Physician Chief Complaint: C/O VAGINAL ITCH -> "GIVE ME SOMETHING STRONG" NO RECTAL PAIN NO DYSURIA NO GROIN ITCH - Current Medication List Current Medications: Active Medications Acetaminophen (Tylenol -) 650 mg PO Q6H PRN PRN Reason: FEVER OR PAIN Last Admin: 09/21/16 21:46 Dose: 650 mg Apixaban (Eliquis -) 2.5 mg PO BID [facility] Last Admin: 09/21/16 21:45 Dose: 2.5 mg Clonidine HCl (Catapres Tts Patch -) 0.1 mg TD Q7D@1000 [facility] Clotrimazole (Lotrimin 1% Cream -) 1 applic TP BID [facility] Last Admin: 09/22/16 05:11 Dose: 1 applic Fluconazole (Diflucan -) 100 mg PO DAILY [facility] Last Admin: 09/21/16 17:20 Dose: 100 mg Ceftriaxone Sodium (Rocephin 1gm Ivpb (Pre-Docked)) 50 mls @ 100 mls/hr IVPB DAILY [facility] Last Admin: 09/21/16 16:58 Dose: 100 mls/hr Sodium Chloride (Normal Saline -) 1,000 mls @ 83 mls/hr IV ASDIR [facility] Last Admin: 09/21/16 16:58 Dose: 83 mls/hr Nifedipine (Procardia Xl -) 60 mg PO DAILY [facility] Last Admin: 09/21/16 15:18 Dose: 60 mg Olanzapine (Zyprexa -) 5 mg PO HS [facility] Last Admin: 09/21/16 21:46 Dose: 5 mg Perphenazine (Trilafon) 2 mg PO BID [facility] Last Admin: 09/21/16 21:46 Dose: 2 mg Prednisone (Deltasone -) 50 mg PO DAILY [facility] Last Admin: 09/21/16 17:22 Dose: 50 mg - Objective Vital Signs: Vital Signs Temperature 98.3 F 09/22/16 06:05 Pulse Rate 92 H 09/22/16 06:05 Respiratory Rate 20 09/22/16 06:05 Blood Pressure 149/74 09/22/16 06:05 O2 Sat by Pulse Oximetry (%) 93 L 09/21/16 21:00 Cardiovascular: Yes: Regular Rate and Rhythm, S1, S2 Respiratory: Yes: CTA Bilaterally Gastrointestinal: Yes: Normal Bowel Sounds, Soft Edema: No Labs: CBC, BMP 09/22/16 05:35 INR, PTT INR 1.43 (0.82-1.09) H D 09/21/16 10:40 Assessment/Plan (1) UTI (urinary tract infection) Assessment/Plan: lwukocytosis and lactic acid elevated will trend -> f/u iv abx awaitn culture -> bc +celi ID on Code(s): N39.0 - URINARY TRACT INFECTION, SITE NOT SPECIFIED (2) ANCA-positive vasculitis Assessment/Plan: prednisone -> renal to taper Code(s): I77.6 - ARTERITIS, UNSPECIFIED (3) Anemia Assessment/Plan: hgb 10 -> 9 monitor Code(s): D64.9 - ANEMIA, UNSPECIFIED Qualifiers: Anemia type: unspecified type Qualified Code(s): D64.9 - Anemia, unspecified (4) HTN (hypertension) Assessment/Plan: procardia and clonidine Code(s): I10 - ESSENTIAL (PRIMARY) HYPERTENSION (5) Vaginitis Assessment/Plan: diflucan Code(s): N76.0 - ACUTE VAGINITIS (6) DVT (deep venous thrombosis) Assessment/Plan: on eliquis Code(s): I82.409 - ACUTE EMBOLISM AND THOMBOS UNSP DEEP VN UNSP LOWER EXTREMITY [employer]
[2016-09-22 07:46] LABS: ALBUMIN 2.6 g/dl (3.4-5.0); BILIRUBIN,TOTAL 0.4 mg/dL (0.2-1.0); CALCIUM 8.7 mg/dL (8.5-10.1); CREATININE 1.8 mg/dL (0.55-1.02); MAGNESIUM 1.6 mg/dL (1.8-2.4); PHOSPHOROUS 4.1 mg/dL (2.5-4.9); TOT PROT 5.8 g/dl (6.4-8.2)
[2016-09-22 08:28] LABS: FERRITIN 989.14 ng/ml (6.9-282.5)
[2016-09-22] MEDS: WITCH HAZEL 50% (TUCKS) 40 PAD/JAR PAD TP PRN ×2 (10:26→12:13)
[2016-09-22] MEDS: NIFEdipine E.R 60 MG TABLET (UD) PO SCH (10:26)
[2016-09-22] MEDS: predniSONE 20 MG TABLET (UD) PO SCH (10:26)
[2016-09-22] MEDS: CEFTRIAXONE 50 ML IVPB SCH (10:26)
[2016-09-22] MEDS: FLUCONAZOLE 100 MG TABLET (UD) PO SCH (10:28)
[2016-09-22] MEDS: PERPHENAZINE 2 MG TABLET PO SCH ×2 (10:29→21:56)
[2016-09-22] MEDS: APIXABAN 2.5 MG TABLET PO SCH ×2 (10:29→21:56)
[2016-09-22] MEDS ORDERED: PT OWN MED DRAWER 7, Y5N ONE ×3 (10:31→20:20)
[2016-09-22] MEDS: ACETAMINOPHEN 325 MG TABLET (FP) PO PRN (10:35)
--- NOTE | 2016-09-22 11:07 | PN ---
Progress Note (short form) - Note Progress Note: feels very cold generally uncooperative +cough Vital Signs Period Temp Pulse Resp BP Sys/Zarate Pulse Ox Last 24 Hr 97.9 F-98.9 F 80-97 14-20 140-161/60-79 93-100 cor-rrr lungs scattered rhonchi abd soft,nt ext multiple ecchymoses no skin breakdown noted CBC, BMP 09/22/16 05:35 09/22/16 05:35 Microbiology 09/21/16 10:45 Blood - Peripheral Venous Blood Culture - Preliminary NO GROWTH OBTAINED AFTER 24 HOURS, INCUBATION TO CONTINUE FOR 4 DAYS. 09/21/16 10:45 Urine - Urine - Catheterized Urine Culture - Preliminary Lactose Fermenting Neg Bacilli Non Lactose Fermenting Gnb 09/20/16 10:40 Nasopharyngeal Swab Respiratory Virus Panel - Preliminary 09/21/16 10:45 Blood - Peripheral Venous Blood Culture - Preliminary Pending Organism 09/21/16 10:40 Nasopharyngeal Swab Influenza Types A,B Antigen (JÚNIOR) - Final 09/21/16 10:40 Nasopharyngeal Swab - Final chest ct with multiple areas of patchy infiltrate Current Medications Acetaminophen (Tylenol -) 650 mg PO Q6H PRN PRN Reason: FEVER OR PAIN Last Admin: 09/22/16 10:35 Dose: 650 mg Apixaban (Eliquis -) 2.5 mg PO BID [facility] Last Admin: 09/22/16 10:29 Dose: 2.5 mg Clonidine HCl (Catapres Tts Patch -) 0.1 mg TD Q7D@1000 [facility] Clotrimazole (Lotrimin 1% Cream -) 1 applic TP BID [facility] Last Admin: 09/22/16 10:27 Dose: 1 applic Fluconazole (Diflucan -) 100 mg PO DAILY [facility] Last Admin: 09/22/16 10:28 Dose: 100 mg Hydrocortisone (Anusol 2.5% Hc Cream -) 1 applic TP BID PRN PRN Reason: PAIN Ceftriaxone Sodium (Rocephin 1gm Ivpb (Pre-Docked)) 50 mls @ 100 mls/hr IVPB DAILY [facility] Last Admin: 09/22/16 10:26 Dose: 100 mls/hr Sodium Chloride (Normal Saline -) 1,000 mls @ 83 mls/hr IV ASDIR [facility] Last Admin: 09/21/16 16:58 Dose: 83 mls/hr Nifedipine (Procardia Xl -) 60 mg PO DAILY [facility] Last Admin: 09/22/16 10:26 Dose: 60 mg Olanzapine (Zyprexa -) 5 mg PO HS [facility] Last Admin: 09/21/16 21:46 Dose: 5 mg Perphenazine (Trilafon) 2 mg PO BID [facility] Last Admin: 09/22/16 10:29 Dose: 2 mg Prednisone (Deltasone -) 50 mg PO DAILY [facility] Last Admin: 09/22/16 10:26 Dose: 50 mg Witch Swati/Glycerin (Tucks Pads -) 1 pad TP TID PRN PRN Reason: PAIN Last Admin: 09/22/16 10:26 Dose: 1 pad a/p pneumonia/immunocompromised host (high dose steroids) uti received zosyn/levaquin yesterday switched to rocephin bacteremia vancomycin/zosyn/zithromax sputum culture legionnella urinary antigen f/u blood cultures
[2016-09-22] MEDS ORDERED: VANCOMYCIN 1 GRAM (PRE-DOCKED) 250 ML IVPB ONE (11:11)
[2016-09-22] MEDS: SODIUM CHLORIDE 1,000 ML IV SCH ×2 (11:46→16:13)
[2016-09-22] MEDS: AZITHROMYCIN IVPB 250 ML IVPB SCH (11:47)
[2016-09-22] MEDS: PIPERACILLIN/TAZOB 3.375 GM/50 ML PRE-DOCKED IVPB SCH ×2 (11:48→18:16)
[2016-09-22] MEDS: HYDROCORTISONE 2.5% TOPICAL CREAM 30 GM TUBE TP PRN (11:48)
[2016-09-22] MEDS ORDERED: MAGNESIUM SULF 50% (8.12 MEQ/2 ML-1 GM VIAL) IVPB ONE ×2 (12:40→16:30)
[2016-09-22] MEDS: PHENAZOPYRIDINE HCL 100 MG TABLET (FP) PO SCH ×2 (14:49→21:56)
--- NOTE | 2016-09-22 15:39 | PN ---
Progress Note (short form) - Note Progress Note: Renal Follow up for SHARI/CKD Pt seen and examined has cough denies cp, sob Vital Signs Temperature 98.6 F 09/22/16 09:06 Pulse Rate 86 09/22/16 09:06 Respiratory Rate 20 09/22/16 09:06 Blood Pressure 145/60 09/22/16 09:06 O2 Sat by Pulse Oximetry (%) 92 L 09/22/16 10:00 Intake & Output 09/19/16 09/20/16 09/21/16 09/22/16 23:59 23:59 23:59 23:59 Intake Total 120 1500 Balance 120 1500 Weight 124 lb 6.4 oz Gen: NAD, awake and alert CVS: RRR, Lungs: Dec BS right lung base Abd: soft NT/ND Ext: No edema, clubbing or cyanosis CBC, BMP 09/22/16 05:35 09/22/16 05:35 Current Medications Acetaminophen (Tylenol -) 650 mg PO Q6H PRN PRN Reason: FEVER OR PAIN Last Admin: 09/22/16 10:35 Dose: 650 mg Apixaban (Eliquis -) 2.5 mg PO BID [facility] Last Admin: 09/22/16 10:29 Dose: 2.5 mg Clonidine HCl (Catapres Tts Patch -) 0.1 mg TD Q7D@1000 [facility] Clotrimazole (Lotrimin 1% Cream -) 1 applic TP BID [facility] Last Admin: 09/22/16 10:27 Dose: 1 applic Fluconazole (Diflucan -) 100 mg PO DAILY [facility] Last Admin: 09/22/16 10:28 Dose: 100 mg Hydrocortisone (Anusol 2.5% Hc Cream -) 1 applic TP BID PRN PRN Reason: PAIN Last Admin: 09/22/16 11:48 Dose: 1 applic Sodium Chloride (Normal Saline -) 1,000 mls @ 83 mls/hr IV ASDIR [facility] Last Admin: 09/22/16 11:46 Dose: 83 mls/hr Azithromycin (Zithromax 500mg Ivpb (Pre-Docked)) 250 mls @ 250 mls/hr IVPB DAILY [facility] Last Admin: 09/22/16 11:47 Dose: 250 mls/hr Nifedipine (Procardia Xl -) 60 mg PO DAILY [facility] Last Admin: 09/22/16 10:26 Dose: 60 mg Olanzapine (Zyprexa -) 5 mg PO HS [facility] Last Admin: 09/21/16 21:46 Dose: 5 mg Perphenazine (Trilafon) 2 mg PO BID [facility] Last Admin: 09/22/16 10:29 Dose: 2 mg Phenazopyridine HCl (Pyridium -) 200 mg PO TID [facility] Stop: 09/24/16 06:01 Last Admin: 09/22/16 14:49 Dose: 200 mg Piperacillin Sod/Tazobactam Sod (Zosyn 3.375gm Ivpb (Pre-Docked)) 3.375 gm IVPB Q8H-IV [facility] Last Admin: 09/22/16 11:48 Dose: 3.375 gm Prednisone (Deltasone -) 50 mg PO DAILY [facility] Last Admin: 09/22/16 10:26 Dose: 50 mg Witch Swati/Glycerin (Tucks Pads -) 1 pad TP TID PRN PRN Reason: PAIN Last Admin: 09/22/16 12:13 Dose: 1 pad A/P 71 year old woman with PMhx of 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
[2016-09-22] MEDS: OLANZapine 5 MG TABLET PO SCH (21:56)
[2016-09-23] MEDS: PIPERACILLIN/TAZOB 3.375 GM/50 ML PRE-DOCKED IVPB SCH ×3 (02:15→17:54)
[2016-09-23] MEDS: PHENAZOPYRIDINE HCL 100 MG TABLET (FP) PO SCH ×3 (06:18→21:43)
[2016-09-23 07:46] LABS: BASOPHIL 0.1 % (0-2.0); EOSINOPHIL 0.1 % (0-4.5); MCH 30.9 pg (25.7-33.7); MCHC 33.5 g/dl (32.0-36.0); MEAN CELL VOLUME 92.2 fl (80-96); MEAN PLT VOLUME 7.6 fl (7.5-11.1); NEUTROPHILS 88.5 % (42.8-82.8); PLATELET COUNT 182 K/MM3 (134-434); RDW 16.1 % (11.6-15.6)
[2016-09-23 08:07] LABS: SERUM IRON 15 ug/dL (27-139); TOTAL IRON BINDING CAPACITY 205 ug/dL (250-450); UIBC 190 ug/dL (118-369)
[2016-09-23 08:20] LABS: ALBUMIN 2.2 g/dl (3.4-5.0); PHOSPHOROUS 4.3 mg/dL (2.5-4.9)
[2016-09-23 08:22] LABS: BILIRUBIN,TOTAL 0.5 mg/dL (0.2-1.0); CALCIUM 8.2 mg/dL (8.5-10.1); CREATININE 1.9 mg/dL (0.55-1.02); TOT PROT 5.5 g/dl (6.4-8.2)
--- NOTE | 2016-09-23 10:03 | PN ---
Progress Note, Physician Chief Complaint: ID Vancomycin zosyn and Azithromycin empiric therapy Alert Declines examamination - Current Medication List Current Medications: Active Medications Acetaminophen (Tylenol -) 650 mg PO Q6H PRN PRN Reason: FEVER OR PAIN Last Admin: 09/22/16 10:35 Dose: 650 mg Apixaban (Eliquis -) 2.5 mg PO BID [facility] Last Admin: 09/22/16 21:56 Dose: 2.5 mg Clonidine HCl (Catapres Tts Patch -) 0.1 mg TD Q7D@1000 [facility] Clotrimazole (Lotrimin 1% Cream -) 1 applic TP BID [facility] Last Admin: 09/22/16 21:56 Dose: 1 applic Fluconazole (Diflucan -) 100 mg PO DAILY [facility] Last Admin: 09/22/16 10:28 Dose: 100 mg Hydrocortisone (Anusol 2.5% Hc Cream -) 1 applic TP BID PRN PRN Reason: PAIN Last Admin: 09/22/16 11:48 Dose: 1 applic Sodium Chloride (Normal Saline -) 1,000 mls @ 83 mls/hr IV ASDIR [facility] Last Admin: 09/22/16 16:13 Dose: Not Given Azithromycin (Zithromax 500mg Ivpb (Pre-Docked)) 250 mls @ 250 mls/hr IVPB DAILY [facility] Last Admin: 09/22/16 11:47 Dose: 250 mls/hr Nifedipine (Procardia Xl -) 60 mg PO DAILY [facility] Last Admin: 09/22/16 10:26 Dose: 60 mg Olanzapine (Zyprexa -) 5 mg PO HS [facility] Last Admin: 09/22/16 21:56 Dose: 5 mg Perphenazine (Trilafon) 2 mg PO BID [facility] Last Admin: 09/22/16 21:56 Dose: 2 mg Phenazopyridine HCl (Pyridium -) 200 mg PO TID [facility] Stop: 09/24/16 06:01 Last Admin: 09/23/16 06:18 Dose: 200 mg Piperacillin Sod/Tazobactam Sod (Zosyn 3.375gm Ivpb (Pre-Docked)) 3.375 gm IVPB Q8H-IV [facility] Last Admin: 09/23/16 02:15 Dose: 3.375 gm Prednisone (Deltasone -) 50 mg PO DAILY [facility] Last Admin: 09/22/16 10:26 Dose: 50 mg Witch Swati/Glycerin (Tucks Pads -) 1 pad TP TID PRN PRN Reason: PAIN Last Admin: 09/22/16 12:13 Dose: 1 pad - Objective Vital Signs: Vital Signs Temperature 98.0 F 09/23/16 07:17 Pulse Rate 79 09/23/16 07:17 Respiratory Rate 20 09/23/16 07:17 Blood Pressure 140/76 09/23/16 07:17 O2 Sat by Pulse Oximetry (%) 92 L 09/22/16 21:00 Constitutional: Yes: Well Nourished, No Distress HENT: Yes: WNL, Atraumatic Neck: Yes: WNL, Supple Cardiovascular: Yes: S1 Labs: CBC, BMP 09/23/16 06:15 09/23/16 06:15 INR, PTT INR 1.43 (0.82-1.09) H D 09/21/16 10:40 Problem List - Problems (1) Sepsis Code(s): A41.9 - SEPSIS, UNSPECIFIED ORGANISM (2) UTI (urinary tract infection) Code(s): N39.0 - URINARY TRACT INFECTION, SITE NOT SPECIFIED
[2016-09-23] MEDS: predniSONE 20 MG TABLET (UD) PO SCH (10:45)
[2016-09-23] MEDS: NIFEdipine E.R 60 MG TABLET (UD) PO SCH (10:45)
[2016-09-23] MEDS: APIXABAN 2.5 MG TABLET PO SCH ×2 (10:46→21:43)
[2016-09-23] MEDS: FLUCONAZOLE 100 MG TABLET (UD) PO SCH (10:46)
[2016-09-23] MEDS: CLOTRIMAZOLE 1% CREAM 15 GM TUBE TP SCH ×2 (10:48→21:44)
[2016-09-23] MEDS: PERPHENAZINE 2 MG TABLET PO SCH ×2 (10:48→21:44)
[2016-09-23] MEDS ORDERED: PT OWN MED DRAWER 7, Y5N ONE ×2 (11:51→19:00)
--- NOTE | 2016-09-23 11:58 | PN ---
Progress Note, Physician Chief Complaint: NO LONGER C/O VAGINAL ITCH UNRELIABLE HISTORIAN - Current Medication List Current Medications: Active Medications Acetaminophen (Tylenol -) 650 mg PO Q6H PRN PRN Reason: FEVER OR PAIN Last Admin: 09/22/16 10:35 Dose: 650 mg Apixaban (Eliquis -) 2.5 mg PO BID [facility] Last Admin: 09/23/16 10:46 Dose: 2.5 mg Clonidine HCl (Catapres Tts Patch -) 0.1 mg TD Q7D@1000 [facility] Clotrimazole (Lotrimin 1% Cream -) 1 applic TP BID [facility] Last Admin: 09/23/16 10:48 Dose: 1 applic Fluconazole (Diflucan -) 100 mg PO DAILY [facility] Last Admin: 09/23/16 10:46 Dose: 100 mg Hydrocortisone (Anusol 2.5% Hc Cream -) 1 applic TP BID PRN PRN Reason: PAIN Last Admin: 09/22/16 11:48 Dose: 1 applic Sodium Chloride (Normal Saline -) 1,000 mls @ 83 mls/hr IV ASDIR [facility] Last Admin: 09/22/16 16:13 Dose: Not Given Azithromycin (Zithromax 500mg Ivpb (Pre-Docked)) 250 mls @ 250 mls/hr IVPB DAILY [facility] Last Admin: 09/22/16 11:47 Dose: 250 mls/hr Nifedipine (Procardia Xl -) 60 mg PO DAILY [facility] Last Admin: 09/23/16 10:45 Dose: 60 mg Olanzapine (Zyprexa -) 5 mg PO HS [facility] Last Admin: 09/22/16 21:56 Dose: 5 mg Perphenazine (Trilafon) 2 mg PO BID [facility] Last Admin: 09/23/16 10:48 Dose: 2 mg Phenazopyridine HCl (Pyridium -) 200 mg PO TID [facility] Stop: 09/24/16 06:01 Last Admin: 09/23/16 06:18 Dose: 200 mg Piperacillin Sod/Tazobactam Sod (Zosyn 3.375gm Ivpb (Pre-Docked)) 3.375 gm IVPB Q8H-IV [facility] Last Admin: 09/23/16 10:49 Dose: 3.375 gm Prednisone (Deltasone -) 50 mg PO DAILY [facility] Last Admin: 09/23/16 10:45 Dose: 50 mg Witch Swati/Glycerin (Tucks Pads -) 1 pad TP TID PRN PRN Reason: PAIN Last Admin: 09/22/16 12:13 Dose: 1 pad - Objective Vital Signs: Vital Signs Temperature 99.3 F 09/23/16 10:40 Pulse Rate 82 09/23/16 10:40 Respiratory Rate 20 09/23/16 10:40 Blood Pressure 140/62 09/23/16 10:40 O2 Sat by Pulse Oximetry (%) 92 L 09/22/16 21:00 Labs: CBC, BMP 09/23/16 06:15 09/23/16 06:15 INR, PTT INR 1.43 (0.82-1.09) H D 09/21/16 10:40 Problem List - Problems (1) ANCA-positive vasculitis Code(s): I77.6 - ARTERITIS, UNSPECIFIED (2) Anemia Code(s): D64.9 - ANEMIA, UNSPECIFIED Qualifiers: Anemia type: unspecified type Qualified Code(s): D64.9 - Anemia, unspecified (3) DVT (deep venous thrombosis) Code(s): I82.409 - ACUTE EMBOLISM AND THOMBOS UNSP DEEP VN UNSP LOWER EXTREMITY (4) HTN (hypertension) Code(s): I10 - ESSENTIAL (PRIMARY) HYPERTENSION (5) UTI (urinary tract infection) Code(s): N39.0 - URINARY TRACT INFECTION, SITE NOT SPECIFIED (6) Vaginitis Code(s): N76.0 - ACUTE VAGINITIS Assessment/Plan (1) UTI (urinary tract infection) Assessment/Plan: lwukocytosis and lactic acid elevated will trend -> f/u iv abx awaitn culture -> bc +celi ID on case Code(s): N39.0 - URINARY TRACT INFECTION, SITE NOT SPECIFIED (2) ANCA-positive vasculitis Assessment/Plan: prednisone appreciate renal consult -> plan on slow taper of steroids (decrease by 10mg per week) cr not improving on steroids -> rheum consult Code(s): I77.6 - ARTERITIS, UNSPECIFIED (3) Anemia Assessment/Plan: stable hgb 9 monitor Code(s): D64.9 - ANEMIA, UNSPECIFIED Qualifiers: Anemia type: unspecified type Qualified Code(s): D64.9 - Anemia, unspecified (4) HTN (hypertension) Assessment/Plan: procardia and clonidine Code(s): I10 - ESSENTIAL (PRIMARY) HYPERTENSION (5) Vaginitis Assessment/Plan: diflucan Code(s): N76.0 - ACUTE VAGINITIS (6) DVT (deep venous thrombosis) Assessment/Plan: on eliquis Code(s): I82.409 - ACUTE EMBOLISM AND THOMBOS UNSP DEEP VN UNSP LOWER EXTREMITY [employer]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
[2016-09-23] MEDS: AZITHROMYCIN IVPB 250 ML IVPB SCH (12:24)
--- NOTE | 2016-09-23 13:17 | PN ---
Progress Note (short form) - Note Progress Note: Renal Follow up for SHARI/CKD Pt seen and examined no acute complaints denies cough, fever, chest pain, sob, abd pain on IVF Vital Signs Temperature 99.3 F 09/23/16 10:40 Pulse Rate 82 09/23/16 10:40 Respiratory Rate 20 09/23/16 10:40 Blood Pressure 140/62 09/23/16 10:40 O2 Sat by Pulse Oximetry (%) 92 L 09/22/16 21:00 Intake & Output 09/20/16 09/21/16 09/22/16 09/23/16 23:59 23:59 23:59 23:59 Intake Total 120 2610 300 Balance 120 2610 300 Weight 124 lb 6.4 oz Gen: NAD, awake and alert CVS: RRR, Lungs: Course BS Abd: soft NT/ND Ext: No edema, clubbing or cyanosis CBC, BMP 09/23/16 06:15 09/23/16 06:15 Current Medications Acetaminophen (Tylenol -) 650 mg PO Q6H PRN PRN Reason: FEVER OR PAIN Last Admin: 09/22/16 10:35 Dose: 650 mg Apixaban (Eliquis -) 2.5 mg PO BID [facility] Last Admin: 09/23/16 10:46 Dose: 2.5 mg Clonidine HCl (Catapres Tts Patch -) 0.1 mg TD Q7D@1000 [facility] Clotrimazole (Lotrimin 1% Cream -) 1 applic TP BID [facility] Last Admin: 09/23/16 10:48 Dose: 1 applic Fluconazole (Diflucan -) 100 mg PO DAILY [facility] Last Admin: 09/23/16 10:46 Dose: 100 mg Hydrocortisone (Anusol 2.5% Hc Cream -) 1 applic TP BID PRN PRN Reason: PAIN Last Admin: 09/22/16 11:48 Dose: 1 applic Sodium Chloride (Normal Saline -) 1,000 mls @ 83 mls/hr IV ASDIR [facility] Last Admin: 09/22/16 16:13 Dose: Not Given Azithromycin (Zithromax 500mg Ivpb (Pre-Docked)) 250 mls @ 250 mls/hr IVPB DAILY [facility] Last Admin: 09/23/16 12:24 Dose: 250 mls/hr Nifedipine (Procardia Xl -) 60 mg PO DAILY [facility] Last Admin: 09/23/16 10:45 Dose: 60 mg Olanzapine (Zyprexa -) 5 mg PO HS [facility] Last Admin: 09/22/16 21:56 Dose: 5 mg Perphenazine (Trilafon) 2 mg PO BID [facility] Last Admin: 09/23/16 10:48 Dose: 2 mg Phenazopyridine HCl (Pyridium -) 200 mg PO TID [facility] Stop: 09/24/16 06:01 Last Admin: 09/23/16 06:18 Dose: 200 mg Piperacillin Sod/Tazobactam Sod (Zosyn 3.375gm Ivpb (Pre-Docked)) 3.375 gm IVPB Q8H-IV [facility] Last Admin: 09/23/16 10:49 Dose: 3.375 gm Prednisone (Deltasone -) 50 mg PO DAILY [facility] Last Admin: 09/23/16 10:45 Dose: 50 mg Witch Swati/Glycerin (Tucks Pads -) 1 pad TP TID PRN PRN Reason: PAIN Last Admin: 09/22/16 12:13 Dose: 1 pad A/P 71 year old woman with PMhx of 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 Coli #Hypertension Continue Clonidine path and Procardia XL Goal BP < 140/90 Jhony Gordon DO
[2016-09-23] MEDS: OLANZapine 5 MG TABLET PO SCH (21:43)
[2016-09-24] MEDS: PIPERACILLIN/TAZOB 3.375 GM/50 ML PRE-DOCKED IVPB SCH ×3 (02:04→17:10)
[2016-09-24] MEDS: PHENAZOPYRIDINE HCL 100 MG TABLET (FP) PO SCH (06:06)
[2016-09-24 08:22] LABS: BASOPHIL 0.1 % (0-2.0); MCH 30.3 pg (25.7-33.7); MCHC 32.8 g/dl (32.0-36.0); MEAN CELL VOLUME 92.6 fl (80-96); MEAN PLT VOLUME 7.8 fl (7.5-11.1); NEUTROPHILS 85.7 % (42.8-82.8); PLATELET COUNT 215 K/MM3 (134-434); WHITE BLOOD COUNT 11.7 K/mm3 (4.0-10.0)
[2016-09-24 08:48] LABS: ALBUMIN 2.3 g/dl (3.4-5.0); BILIRUBIN,TOTAL 0.7 mg/dL (0.2-1.0); CALCIUM 8.2 mg/dL (8.5-10.1); MAGNESIUM 1.8 mg/dL (1.8-2.4); PHOSPHOROUS 3.8 mg/dL (2.5-4.9)
[2016-09-24] MEDS ORDERED: PT OWN MED DRAWER 7, Y5N ONE ×2 (08:55→20:10)
[2016-09-24] MEDS: FLUCONAZOLE 100 MG TABLET (UD) PO SCH (09:00)
[2016-09-24] MEDS: predniSONE 20 MG TABLET (UD) PO SCH (09:00)
[2016-09-24] MEDS: APIXABAN 2.5 MG TABLET PO SCH ×2 (09:01→21:56)
[2016-09-24] MEDS: NIFEdipine E.R 60 MG TABLET (UD) PO SCH (09:01)
[2016-09-24] MEDS: CLOTRIMAZOLE 1% CREAM 15 GM TUBE TP SCH ×2 (09:02→22:02)
[2016-09-24] MEDS: PERPHENAZINE 2 MG TABLET PO SCH ×2 (09:02→22:01)
--- NOTE | 2016-09-24 09:32 | PN ---
Progress Note, Physician Chief Complaint: LAYING FLAT IN BED NO DISTRESS UNRELIABLE HISTORIAN VAGINITIS ITCH "FEELS BETTER" - Current Medication List Current Medications: Active Medications Acetaminophen (Tylenol -) 650 mg PO Q6H PRN PRN Reason: FEVER OR PAIN Last Admin: 09/22/16 10:35 Dose: 650 mg Apixaban (Eliquis -) 2.5 mg PO BID [facility] Last Admin: 09/24/16 09:01 Dose: 2.5 mg Clonidine HCl (Catapres Tts Patch -) 0.1 mg TD Q7D@1000 [facility] Clotrimazole (Lotrimin 1% Cream -) 1 applic TP BID [facility] Last Admin: 09/24/16 09:02 Dose: 1 applic Fluconazole (Diflucan -) 100 mg PO DAILY [facility] Last Admin: 09/24/16 09:00 Dose: 100 mg Hydrocortisone (Anusol 2.5% Hc Cream -) 1 applic TP BID PRN PRN Reason: PAIN Last Admin: 09/22/16 11:48 Dose: 1 applic Azithromycin (Zithromax 500mg Ivpb (Pre-Docked)) 250 mls @ 250 mls/hr IVPB DAILY [facility] Last Admin: 09/23/16 12:24 Dose: 250 mls/hr Nifedipine (Procardia Xl -) 60 mg PO DAILY [facility] Last Admin: 09/24/16 09:01 Dose: 60 mg Olanzapine (Zyprexa -) 5 mg PO HS [facility] Last Admin: 09/23/16 21:43 Dose: 5 mg Perphenazine (Trilafon) 2 mg PO BID [facility] Last Admin: 09/24/16 09:02 Dose: 2 mg Piperacillin Sod/Tazobactam Sod (Zosyn 3.375gm Ivpb (Pre-Docked)) 3.375 gm IVPB Q8H-IV [facility] Last Admin: 09/24/16 09:03 Dose: 3.375 gm Prednisone (Deltasone -) 50 mg PO DAILY [facility] Last Admin: 09/24/16 09:00 Dose: 50 mg Witch Swati/Glycerin (Tucks Pads -) 1 pad TP TID PRN PRN Reason: PAIN Last Admin: 09/22/16 12:13 Dose: 1 pad - Objective Vital Signs: Vital Signs Temperature 98.5 F 09/24/16 07:41 Pulse Rate 82 09/24/16 07:41 Respiratory Rate 20 09/24/16 07:41 Blood Pressure 154/60 09/24/16 07:41 O2 Sat by Pulse Oximetry (%) 94 L 09/23/16 22:00 Cardiovascular: Yes: WNL Respiratory: Yes: WNL Gastrointestinal: Yes: WNL Edema: No Labs: CBC, BMP 09/24/16 07:17 09/24/16 07:17 INR, PTT INR 1.43 (0.82-1.09) H D 09/21/16 10:40 Problem List - Problems (1) ANCA-positive vasculitis Code(s): I77.6 - ARTERITIS, UNSPECIFIED (2) Anemia Code(s): D64.9 - ANEMIA, UNSPECIFIED Qualifiers: Qualified Code(s): D64.9 - Anemia, unspecified (3) DVT (deep venous thrombosis) Code(s): I82.409 - ACUTE EMBOLISM AND THOMBOS UNSP DEEP VN UNSP LOWER EXTREMITY (4) HTN (hypertension) Code(s): I10 - ESSENTIAL (PRIMARY) HYPERTENSION (5) UTI (urinary tract infection) Code(s): N39.0 - URINARY TRACT INFECTION, SITE NOT SPECIFIED (6) Vaginitis Code(s): N76.0 - ACUTE VAGINITIS Assessment/Plan (1) UTI (urinary tract infection) Assessment/Plan: lwukocytosis improving lactic acid neg iv abx awaitn culture -> bc +celi ID on case Code(s): N39.0 - URINARY TRACT INFECTION, SITE NOT SPECIFIED (2) ANCA-positive vasculitis Assessment/Plan: prednisone appreciate renal consult -> plan on slow taper of steroids (decrease by 10mg per week) cr not improving on steroids rheum on case Code(s): I77.6 - ARTERITIS, UNSPECIFIED (3) Anemia Assessment/Plan: monitor Code(s): D64.9 - ANEMIA, UNSPECIFIED Qualifiers: Anemia type: unspecified type Qualified Code(s): D64.9 - Anemia, unspecified (4) HTN (hypertension) Assessment/Plan: procardia and clonidine Code(s): I10 - ESSENTIAL (PRIMARY) HYPERTENSION (5) Vaginitis Assessment/Plan: diflucan Code(s): N76.0 - ACUTE VAGINITIS (6) DVT (deep venous thrombosis) Assessment/Plan: on eliquis Code(s): I82.409 - ACUTE EMBOLISM AND THOMBOS UNSP DEEP VN UNSP LOWER EXTREMITY [facility]
[2016-09-24] MEDS: AZITHROMYCIN IVPB 250 ML IVPB SCH (09:45)
--- NOTE | 2016-09-24 16:19 | PN ---
Progress Note, Physician History of Present Illness: OOB in chair Confused No acute distress + cough noted Low grade temp - Current Medication List Current Medications: Active Medications Acetaminophen (Tylenol -) 650 mg PO Q6H PRN PRN Reason: FEVER OR PAIN Last Admin: 09/22/16 10:35 Dose: 650 mg Apixaban (Eliquis -) 2.5 mg PO BID [facility] Last Admin: 09/24/16 09:01 Dose: 2.5 mg Clonidine HCl (Catapres Tts Patch -) 0.1 mg TD Q7D@1000 [facility] Clotrimazole (Lotrimin 1% Cream -) 1 applic TP BID [facility] Last Admin: 09/24/16 09:02 Dose: 1 applic Hydrocortisone (Anusol 2.5% Hc Cream -) 1 applic TP BID PRN PRN Reason: PAIN Last Admin: 09/22/16 11:48 Dose: 1 applic Azithromycin (Zithromax 500mg Ivpb (Pre-Docked)) 250 mls @ 250 mls/hr IVPB DAILY [facility] Last Admin: 09/24/16 09:45 Dose: 250 mls/hr Nifedipine (Procardia Xl -) 60 mg PO DAILY [facility] Last Admin: 09/24/16 09:01 Dose: 60 mg Olanzapine (Zyprexa -) 5 mg PO HS [facility] Last Admin: 09/23/16 21:43 Dose: 5 mg Perphenazine (Trilafon) 2 mg PO BID [facility] Last Admin: 09/24/16 09:02 Dose: 2 mg Piperacillin Sod/Tazobactam Sod (Zosyn 3.375gm Ivpb (Pre-Docked)) 3.375 gm IVPB Q8H-IV [facility] Last Admin: 09/24/16 09:03 Dose: 3.375 gm Prednisone (Deltasone -) 50 mg PO DAILY [facility] Last Admin: 09/24/16 09:00 Dose: 50 mg Witch Swati/Glycerin (Tucks Pads -) 1 pad TP TID PRN PRN Reason: PAIN Last Admin: 09/22/16 12:13 Dose: 1 pad - Objective Vital Signs: Vital Signs Temperature 99.8 F H 09/24/16 14:16 Pulse Rate 89 09/24/16 14:16 Respiratory Rate 20 09/24/16 14:16 Blood Pressure 146/62 09/24/16 14:16 O2 Sat by Pulse Oximetry (%) 94 L 09/24/16 09:00 Constitutional: Yes: No Distress, Cachectic Eyes: Yes: Conjunctiva Clear Cardiovascular: Yes: Regular Rate and Rhythm, S1, S2 Respiratory: Yes: Other (+ crepitations at bases bilat + scatterred rhonchi) Gastrointestinal: Yes: Normal Bowel Sounds, Soft. No: Tenderness Labs: CBC, BMP 09/24/16 07:17 09/24/16 07:17 INR, PTT INR 1.43 (0.82-1.09) H D 09/21/16 10:40 Assessment/Plan UTI Pneumonia Azotemia Continue zithromax/ zosyn
--- NOTE | 2016-09-24 17:34 | CONSULT ---
Consult Consult Specialty:: Rheumatology - History of Present Illness History of Present Illness: 70 year old female, resident of [facility], with past medical history of ANCA positive vascultitis, dementia, hypertension, DVT, GERD, anemia, anxiety , and depression, admitted with fever secondary to pneumonia. HPI The patient was found to have fever at the [facility] (104.8) and was referred to the ER., She reported mild dysuria and was otherwise asymptomatic. On admission temperature was 102.7 and since then she has not have fever. On admission (09/21/16) WBC was 24.1 and on 09/24/16: 11.7. Creatinine was 1.9 and liver function tests were normal. Urinalysis had protein 2+ and blood 3. CT of the chest reported with focal mass like densities in RUL and both lower lobes with air bronchogram suggestive of Pneumonia. She is on Solumedrol 50 mg/d, Azythromycin and Zosin ANCA positive vascuitis. The patient cannot contribute to the medical history. Since 07/14/16 she had progressive chronic kidney disease. On 04/07/16 it was was 0.8, on 07/14/16: 2.8 and on 08/21/16: 5.9 and improved to 3.9. Urinalysis with protein 2+ and blood 3+. Serology revealed KAIDEN 1:1280 with homogeneous pattern. Proteinase-3:36.8, myeloperoxidase 56.8 and P-ANCA 1:640. Anti-DNAds, glomerular basement antibody and HCV were negative. C3 was low (60 ) and C4 and CH50 were normal (16 and 48 respectively). 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 Tubular atrophy and interstitial fibrosis. Scattered RBC casts. It is possible that the vasculitis was related to Hydralazine. She was treated with Prednisone 60 mg/d and creatinine decreased to 1.8. She did not receive Cytoxan or Rituxan. 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 ) ...: No Psych: Yes: Anxiety, Depression - Alcohol/Substance Use Hx Alcohol Use: No - Smoking History Smoking history: Never smoked Have you smoked in the past 12 months: No Aproximately how many cigarettes per day: 0 If you are a former smoker, when did you quit?: 5 years ago - Social History Usual Living Arrangement: Alone History of Recent Travel: No Home Medications - Allergies Allergies/Adverse Reactions: Allergies Allergy/AdvReac Type Severity Reaction Status Date / Time hydralazine AdvReac Verified 09/21/16 13:26 - Home Medications Home Medications: Ambulatory Orders Acetaminophen 650 mg PO Q6H PRN 07/14/16 Clonidine Patch [Catapres Tts Patch -] 0.1 mg TD WEEKLY 07/14/16 Docusate Sodium 300 mg PO HS 07/14/16 Folic Acid 1 mg PO DAILY 07/14/16 Polyethylene Glycol 3350 [Miralax 119 gm Btl -] 17 gm PO DAILY 07/14/16 Ranitidine HCl [Zantac] 150 mg PO BID 07/14/16 Rivastigmine Tartrate [Rivastigmine] 1.5 mg PO BID 07/14/16 Sennosides/Docusate Sodium [Senna Laxative Tablet] 1 each PO HS 07/14/16 Apixaban [Eliquis] 2.5 mg PO BID #30 tablet 07/20/16 Mirtazapine [Remeron -] 7.5 mg PO HS tablet 07/20/16 Calcium Carbonate/Vitamin D3 [Oyster Shell 500-Vit D3 200 Tb] 1 tab PO BID 08/14 Nifedipine ER [Procardia XL -] 60 mg PO BID tab.er.24 08/25/16 Prednisone [Deltasone -] 60 mg PO DAILY tablet 08/25/16 Olanzapine [Zyprexa] 5 mg PO HS 09/21/16 Perphenazine [Trilafon] 2 mg PO BID 09/21/16 Review of Systems - Review of Systems Constitutional: reports: Malaise Eyes: reports: No Symptoms HENT: reports: No Symptoms Neck: reports: No Symptoms Cardiovascular: reports: No Symptoms Respiratory: reports: SOB Gastrointestinal: reports: No Symptoms Genitourinary: reports: No Symptoms Musculoskeletal: reports: No Symptoms Physical Exam Vital Signs: Vital Signs Temperature 99.8 F H 09/24/16 14:16 Pulse Rate 89 09/24/16 14:16 Respiratory Rate 20 09/24/16 14:16 Blood Pressure 146/62 09/24/16 14:16 O2 Sat by Pulse Oximetry (%) 94 L 09/24/16 09:00 Constitutional: Yes: Mild Distress Eyes: Yes: WNL HENT: Yes: WNL Neck: Yes: WNL Cardiovascular: Yes: WNL Respiratory: Yes: Other (Mild ronchi and scattered coarse crackles.) Gastrointestinal: Yes: WNL Musculoskeletal: Yes: WNL Labs: CBC, BMP 09/24/16 07:17 09/24/16 07:17 Laboratory Tests 09/21/16 09/24/16 10:45 07:17 Total Bilirubin 0.7 D AST 12 L ALT 17 Alkaline Phosphatase 42 L Total Protein 6.0 L Albumin 2.3 L Urine Color Yellow Urine Appearance Cloudy Urine pH 5.0 Ur Specific [place] 1.012 Urine Protein 2+ H Urine Glucose (UA) Negative Urine Ketones Negative Urine Blood 3+ H Urine Nitrite Negative Urine Bilirubin Negative Urine Urobilinogen Negative Ur Leukocyte Esterase 2+ H Urine RBC 17 Urine WBC 31 Urine Bacteria Many Urine Mucus Rare Urine Yeast Rare Assessment/Plan 1. Pneumonia. On antibiotics, improving. 2. 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 The patient improved significantly with steroids. It is unlikely that the present episode of fever and lung infiltrates are related to the vasculitis. I will discuss with Dr. Gordon treatment with Rituxan to prevent relapse.
[2016-09-24] MEDS: OLANZapine 5 MG TABLET PO SCH (21:56)
[2016-09-25] MEDS: PIPERACILLIN/TAZOB 3.375 GM/50 ML PRE-DOCKED IVPB SCH ×3 (02:16→18:33)
[2016-09-25 07:59] LABS: BASOPHIL 0.1 % (0-2.0); EOSINOPHIL 0.2 % (0-4.5); MCHC 33.5 g/dl (32.0-36.0); MEAN CELL VOLUME 92.4 fl (80-96); MEAN PLT VOLUME 7.7 fl (7.5-11.1); NEUTROPHILS 80.6 % (42.8-82.8); PLATELET COUNT 236 K/MM3 (134-434); WHITE BLOOD COUNT 10.9 K/mm3 (4.0-10.0)
[2016-09-25 08:27] LABS: ALBUMIN 2.4 g/dl (3.4-5.0); CALCIUM 8.4 mg/dL (8.5-10.1)
[2016-09-25 08:29] LABS: BILIRUBIN,TOTAL 0.7 mg/dL (0.2-1.0); CREATININE 1.9 mg/dL (0.55-1.02)
[2016-09-25] MEDS ORDERED: PT OWN MED DRAWER 7, Y5N ONE ×3 (10:21→20:49)
[2016-09-25] MEDS: predniSONE 20 MG TABLET (UD) PO SCH (10:26)
[2016-09-25] MEDS: APIXABAN 2.5 MG TABLET PO SCH ×2 (10:27→22:11)
[2016-09-25] MEDS: NIFEdipine E.R 60 MG TABLET (UD) PO SCH (10:27)
[2016-09-25] MEDS: PERPHENAZINE 2 MG TABLET PO SCH ×2 (10:30→22:11)
[2016-09-25] MEDS: CLOTRIMAZOLE 1% CREAM 15 GM TUBE TP SCH ×2 (11:00→22:10)
--- NOTE | 2016-09-25 11:10 | PN ---
Progress Note, Physician Chief Complaint: in bed alert wants to sleep responds to her name - Current Medication List Current Medications: Active Medications Acetaminophen (Tylenol -) 650 mg PO Q6H PRN PRN Reason: FEVER OR PAIN Last Admin: 09/22/16 10:35 Dose: 650 mg Apixaban (Eliquis -) 2.5 mg PO BID [facility] Last Admin: 09/25/16 10:27 Dose: 2.5 mg Clonidine HCl (Catapres Tts Patch -) 0.1 mg TD Q7D@1000 [facility] Clotrimazole (Lotrimin 1% Cream -) 1 applic TP BID [facility] Last Admin: 09/24/16 22:02 Dose: 1 applic Hydrocortisone (Anusol 2.5% Hc Cream -) 1 applic TP BID PRN PRN Reason: PAIN Last Admin: 09/22/16 11:48 Dose: 1 applic Azithromycin (Zithromax 500mg Ivpb (Pre-Docked)) 250 mls @ 250 mls/hr IVPB DAILY [facility] Last Admin: 09/24/16 09:45 Dose: 250 mls/hr Nifedipine (Procardia Xl -) 60 mg PO DAILY [facility] Last Admin: 09/25/16 10:27 Dose: 60 mg Olanzapine (Zyprexa -) 5 mg PO HS [facility] Last Admin: 09/24/16 21:56 Dose: 5 mg Perphenazine (Trilafon) 2 mg PO BID [facility] Last Admin: 09/24/16 22:01 Dose: 2 mg Piperacillin Sod/Tazobactam Sod (Zosyn 3.375gm Ivpb (Pre-Docked)) 3.375 gm IVPB Q8H-IV [facility] Last Admin: 09/25/16 10:28 Dose: 3.375 gm Prednisone (Deltasone -) 50 mg PO DAILY [facility] Last Admin: 09/25/16 10:26 Dose: 50 mg Witch Swati/Glycerin (Tucks Pads -) 1 pad TP TID PRN PRN Reason: PAIN Last Admin: 09/22/16 12:13 Dose: 1 pad - Objective Vital Signs: Vital Signs Temperature 98.4 F 09/25/16 10:06 Pulse Rate 77 09/25/16 10:06 Respiratory Rate 16 09/25/16 10:06 Blood Pressure 180/68 09/25/16 10:06 O2 Sat by Pulse Oximetry (%) 93 L 02/05/17 21:00 Constitutional: Yes: Calm Neck: Yes: Trachea Midline Cardiovascular: Yes: Regular Rate and Rhythm, S1, S2 Respiratory: Yes: CTA Bilaterally Gastrointestinal: Yes: Normal Bowel Sounds, Soft Edema: No Neurological: Yes: Alert, Oriented Labs: CBC, BMP 09/25/16 06:05 09/25/16 06:05 INR, PTT INR 1.43 (0.82-1.09) H D 09/21/16 10:40 Problem List - Problems (1) UTI (urinary tract infection) Assessment/Plan: wbc trending juan pablo Microbiology 09/21/16 10:45 Urine - Urine - Catheterized Urine Culture - Final Escherichia Coli Escherichia Coli#2 iv abx Code(s): N39.0 - URINARY TRACT INFECTION, SITE NOT SPECIFIED (2) ANCA-positive vasculitis Assessment/Plan: prednisone 50mg daily to decrease by 10mg every week if renal function continue to improve iv hydration gien cr was 1.8 yesterday abd today it is 2.2 Code(s): I77.6 - ARTERITIS, UNSPECIFIED (3) Anemia Assessment/Plan: ferrous sulfate vitamin C iron deficient Code(s): D64.9 - ANEMIA, UNSPECIFIED Qualifiers: Anemia type: unspecified type Qualified Code(s): D64.9 - Anemia, unspecified (4) HTN (hypertension) Assessment/Plan: procardia and clonidine Code(s): I10 - ESSENTIAL (PRIMARY) HYPERTENSION (5) Vaginitis Assessment/Plan: diflucan given clotrimazole Code(s): N76.0 - ACUTE VAGINITIS (6) DVT (deep venous thrombosis) Code(s): I82.409 - ACUTE EMBOLISM AND THOMBOS UNSP DEEP VN UNSP LOWER EXTREMITY
--- NOTE | 2016-09-25 11:24 | PN ---
Progress Note (short form) - Note Progress Note: Renal Follow up for SHARI/CKD Pt seen and examined no complaints wants to sleep denies any sob or chest pain Vital Signs Temperature 98.4 F 09/25/16 10:06 Pulse Rate 77 09/25/16 10:06 Respiratory Rate 16 09/25/16 10:06 Blood Pressure 180/68 09/25/16 10:06 O2 Sat by Pulse Oximetry (%) 93 L 09/24/16 21:00 Intake & Output 09/22/16 09/23/16 09/24/16 09/25/16 23:59 23:59 23:59 23:59 Intake Total 2610 1148 1420 250 Balance 2610 1148 1420 250 Gen: NAD, awake and alert CVS: RRR, Lungs: Course BS Abd: soft NT/ND Ext: No edema, clubbing or cyanosis CBC, BMP 09/25/16 06:05 09/25/16 06:05 Current Medications Acetaminophen (Tylenol -) 650 mg PO Q6H PRN PRN Reason: FEVER OR PAIN Last Admin: 09/22/16 10:35 Dose: 650 mg Apixaban (Eliquis -) 2.5 mg PO BID [facility] Last Admin: 09/25/16 10:27 Dose: 2.5 mg Ascorbic Acid (Vitamin C -) 500 mg PO BID [facility] Clonidine HCl (Catapres Tts Patch -) 0.1 mg TD Q7D@1000 [facility] Clotrimazole (Lotrimin 1% Cream -) 1 applic TP BID [facility] Last Admin: 09/24/16 22:02 Dose: 1 applic Ferrous Sulfate (Feosol -) 325 mg PO TIDCM [facility] Hydrocortisone (Anusol 2.5% Hc Cream -) 1 applic TP BID PRN PRN Reason: PAIN Last Admin: 09/22/16 11:48 Dose: 1 applic Azithromycin (Zithromax 500mg Ivpb (Pre-Docked)) 250 mls @ 250 mls/hr IVPB DAILY [facility] Last Admin: 09/24/16 09:45 Dose: 250 mls/hr Nifedipine (Procardia Xl -) 60 mg PO DAILY [facility] Last Admin: 09/25/16 10:27 Dose: 60 mg Olanzapine (Zyprexa -) 5 mg PO HS [facility] Last Admin: 09/24/16 21:56 Dose: 5 mg Perphenazine (Trilafon) 2 mg PO BID [facility] Last Admin: 09/24/16 22:01 Dose: 2 mg Piperacillin Sod/Tazobactam Sod (Zosyn 3.375gm Ivpb (Pre-Docked)) 3.375 gm IVPB Q8H-IV [facility] Last Admin: 09/25/16 10:28 Dose: 3.375 gm Prednisone (Deltasone -) 50 mg PO DAILY [facility] Last Admin: 09/25/16 10:26 Dose: 50 mg Witch Swati/Glycerin (Tucks Pads -) 1 pad TP TID PRN PRN Reason: PAIN Last Admin: 09/22/16 12:13 Dose: 1 pad A/P 71 year old woman with PMhx of 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 Correa, will access need for further immunosuppresive treatment #SIRS/UTI/PNA/Leukocytosis Continue ABx as per ID may need longer course as per ID given pt is on high dose steroids Blood cultures + in one bottle will order repeat blood cultures Urine cultures grew E. Coli #Hypertension Continue Clonidine path and Procardia XL Goal BP < 140/90 Jhony Gordon DO
--- NOTE | 2016-09-25 12:35 | PN ---
Progress Note (short form) - Note Progress Note: feels well, n complaints denies cough day #4 antibotics Vital Signs Period Temp Pulse Resp BP Sys/Zarate Pulse Ox Last 24 Hr 98.3 F-99.8 F 75-90 16-20 146-180/62-76 93 cor-rrr lungs decreased bs at bases abd soft,nt ext no edema CBC, BMP 09/25/16 06:05 09/25/16 06:05 Microbiology 09/21/16 10:45 Blood - Peripheral Venous Blood Culture - Final Staph Capitis Subsp Capitis 09/21/16 10:45 Blood - Peripheral Venous Blood Culture - Preliminary NO GROWTH OBTAINED AFTER 96 HOURS, INCUBATION TO CONTINUE FOR 1 DAYS. 09/21/16 10:45 Urine - Urine - Catheterized Urine Culture - Final Escherichia Coli Escherichia Coli#2 09/21/16 18:00 Blood - Peripheral Venous TB Test (QFT) (JÚNIOR) - Preliminary 09/20/16 10:40 Nasopharyngeal Swab Respiratory Virus Panel - Preliminary 09/21/16 10:40 Nasopharyngeal Swab Influenza Types A,B Antigen (JÚNIOR) - Final 09/21/16 10:40 Nasopharyngeal Swab - Final a/p day #4 zosyn/zithromax for pneumonia- legionella antigen pending repeat cxray immunocomporomised host- history vasculitis on steroids uti dementia
[2016-09-25] MEDS: AZITHROMYCIN IVPB 250 ML IVPB SCH ×2 (13:14→13:16)
[2016-09-25] MEDS: FERROUS SO4 325 MG TABLET (FP) PO SCH ×2 (13:14→18:33)
[2016-09-25] MEDS: OLANZapine 5 MG TABLET PO SCH (22:12)
[2016-09-25] MEDS: ASCORBIC ACID 500 MG TABLET (FP) PO SCH (22:12)
[2016-09-26] MEDS: PIPERACILLIN/TAZOB 3.375 GM/50 ML PRE-DOCKED IVPB SCH ×3 (01:57→19:02)
[2016-09-26 07:59] LABS: BASOPHIL 0.2 % (0-2.0); MCHC 33.3 g/dl (32.0-36.0); MEAN CELL VOLUME 93.2 fl (80-96); MEAN PLT VOLUME 7.5 fl (7.5-11.1); PLATELET COUNT 257 K/MM3 (134-434); RDW 15.8 % (11.6-15.6); WHITE BLOOD COUNT 9.4 K/mm3 (4.0-10.0)
[2016-09-26 08:48] LABS: ALBUMIN 2.5 g/dl (3.4-5.0); BILIRUBIN,TOTAL 0.7 mg/dL (0.2-1.0); CALCIUM 8.7 mg/dL (8.5-10.1); CREATININE 1.8 mg/dL (0.55-1.02)
[2016-09-26] MEDS: FERROUS SO4 325 MG TABLET (FP) PO SCH ×3 (09:00→17:00)
[2016-09-26] MEDS: NIFEdipine E.R 60 MG TABLET (UD) PO SCH (10:35)
[2016-09-26] MEDS: predniSONE 20 MG TABLET (UD) PO SCH (10:35)
[2016-09-26] MEDS: ASCORBIC ACID 500 MG TABLET (FP) PO SCH ×2 (10:35→23:00)
[2016-09-26] MEDS: PERPHENAZINE 2 MG TABLET PO SCH ×2 (10:36→22:59)
[2016-09-26] MEDS: APIXABAN 2.5 MG TABLET PO SCH ×2 (10:36→23:00)
[2016-09-26] MEDS: HYDROCORTISONE 2.5% TOPICAL CREAM 30 GM TUBE TP PRN (10:43)
[2016-09-26] MEDS: CLOTRIMAZOLE 1% CREAM 15 GM TUBE TP SCH ×2 (10:44→22:58)
--- NOTE | 2016-09-26 11:22 | PN ---
Progress Note, Physician - Current Medication List Current Medications: Active Medications Acetaminophen (Tylenol -) 650 mg PO Q6H PRN PRN Reason: FEVER OR PAIN Last Admin: 09/22/16 10:35 Dose: 650 mg Apixaban (Eliquis -) 2.5 mg PO BID [facility] Last Admin: 09/26/16 10:36 Dose: 2.5 mg Ascorbic Acid (Vitamin C -) 500 mg PO BID [facility] Last Admin: 09/26/16 10:35 Dose: 500 mg Clonidine HCl (Catapres Tts Patch -) 0.1 mg TD Q7D@1000 [facility] Clotrimazole (Lotrimin 1% Cream -) 1 applic TP BID [facility] Last Admin: 09/26/16 10:44 Dose: 1 applic Ferrous Sulfate (Feosol -) 325 mg PO TIDCM [facility] Last Admin: 09/26/16 09:00 Dose: Not Given Hydrocortisone (Anusol 2.5% Hc Cream -) 1 applic TP BID PRN PRN Reason: PAIN Last Admin: 09/26/16 10:43 Dose: 1 applic Azithromycin (Zithromax 500mg Ivpb (Pre-Docked)) 250 mls @ 250 mls/hr IVPB DAILY [facility] Last Admin: 09/25/16 13:16 Dose: 250 mls/hr Nifedipine (Procardia Xl -) 60 mg PO DAILY [facility] Last Admin: 09/26/16 10:35 Dose: 60 mg Olanzapine (Zyprexa -) 5 mg PO HS [facility] Last Admin: 09/25/16 22:12 Dose: 5 mg Perphenazine (Trilafon) 2 mg PO BID [facility] Last Admin: 09/26/16 10:36 Dose: 2 mg Piperacillin Sod/Tazobactam Sod (Zosyn 3.375gm Ivpb (Pre-Docked)) 3.375 gm IVPB Q8H-IV [facility] Last Admin: 09/26/16 10:37 Dose: 3.375 gm Prednisone (Deltasone -) 50 mg PO DAILY [facility] Last Admin: 09/26/16 10:35 Dose: 50 mg Witch Swati/Glycerin (Tucks Pads -) 1 pad TP TID PRN PRN Reason: PAIN Last Admin: 09/22/16 12:13 Dose: 1 pad - Objective Vital Signs: Vital Signs Temperature 98.4 F 09/26/16 10:17 Pulse Rate 74 02/07/17 10:17 Respiratory Rate 18 09/26/16 10:17 Blood Pressure 130/68 09/26/16 10:17 O2 Sat by Pulse Oximetry (%) 96 09/25/16 21:00 Cardiovascular: Yes: Regular Rate and Rhythm Respiratory: Yes: Regular, CTA Bilaterally Gastrointestinal: Yes: Normal Bowel Sounds, Soft. No: Tenderness Edema: No Labs: CBC, BMP 09/26/16 06:00 09/26/16 06:00 INR, PTT INR 1.43 (0.82-1.09) H D 09/21/16 10:40 Assessment/Plan - Problems (1) UTI (urinary tract infection) Assessment/Plan: wbc trending down Microbiology 09/21/16 10:45 Urine - Urine - Catheterized Urine Culture - Final Escherichia Coli Escherichia Coli#2 iv abx Code(s): N39.0 - URINARY TRACT INFECTION, SITE NOT SPECIFIED (2) ANCA-positive vasculitis Assessment/Plan: prednisone 50mg daily to decrease by 10mg every week if renal function continue to improve iv hydration given cr was 1.8 yesterday abd today it is 2.2 Code(s): I77.6 - ARTERITIS, UNSPECIFIED (3) Anemia Assessment/Plan: ferrous sulfate vitamin C iron deficient Code(s): D64.9 - ANEMIA, UNSPECIFIED Qualifiers: Anemia type: unspecified type Qualified Code(s): D64.9 - Anemia, unspecified (4) HTN (hypertension) Assessment/Plan: procardia and clonidine Code(s): I10 - ESSENTIAL (PRIMARY) HYPERTENSION (5) Vaginitis Assessment/Plan: diflucan given clotrimazole Code(s): N76.0 - ACUTE VAGINITIS (6) DVT (deep venous thrombosis) Code(s): I82.409 - ACUTE EMBOLISM AND THOMBOS UNSP DEEP VN UNSP LOWER EXTREMITY
[2016-09-26] MEDS: AZITHROMYCIN IVPB 250 ML IVPB SCH (12:05)
--- NOTE | 2016-09-26 14:12 | PN ---
Progress Note (short form) - Note Progress Note: feels well, no complaints day #5 antibotics Vital Signs Period Temp Pulse Resp BP Sys/Zarate Pulse Ox Last 24 Hr 98.4 F-98.7 F 72-84 18-20 130-164/60-68 96 cor-rrr lungs clear abd soft,nt ext no edema CBC, BMP 09/26/16 06:00 09/26/16 06:00 Microbiology 09/21/16 18:00 Blood - Peripheral Venous TB Test (QFT) (JÚNIOR) - Final 09/21/16 10:45 Blood - Peripheral Venous Blood Culture - Final NO GROWTH AFTER 5 DAYS INCUBATION 09/25/16 09:50 Urine For Antigen Detection Legionella Antigen - Final 09/25/16 09:50 Urine For Antigen Detection Streptococcus pneumoniae Antigen (M - Final 09/21/16 10:45 Blood - Peripheral Venous Blood Culture - Final Staph Capitis Subsp Capitis a/p day #5 zosyn/zithromax for pneumonia- legionella antigen negative, d/c zithromax continue zosyn immunocomporomised host- history vasculitis on steroids uti dementia
--- NOTE | 2016-09-26 15:17 | PN ---
Progress Note (short form) - Note Progress Note: Renal Follow up for SHARI/CKD Pt seen and examined no complaints denies any sob, chest pain, abd pain, N/V reports good urine output Vital Signs Temperature 98.4 F 09/26/16 10:17 Pulse Rate 74 09/26/16 10:17 Respiratory Rate 18 09/26/16 10:17 Blood Pressure 130/68 09/26/16 10:17 O2 Sat by Pulse Oximetry (%) 95 09/26/16 09:00 Intake & Output 09/23/16 09/24/16 09/25/16 09/26/16 23:59 23:59 23:59 23:59 Intake Total 1148 1420 920 310 Balance 1148 1420 920 310 Gen: NAD, awake and alert CVS: RRR, Lungs: Course BS Abd: soft NT/ND Ext: No edema, clubbing or cyanosis CBC, BMP 09/26/16 06:00 09/26/16 06:00 Current Medications Acetaminophen (Tylenol -) 650 mg PO Q6H PRN PRN Reason: FEVER OR PAIN Last Admin: 09/22/16 10:35 Dose: 650 mg Apixaban (Eliquis -) 2.5 mg PO BID [facility] Last Admin: 09/26/16 10:36 Dose: 2.5 mg Ascorbic Acid (Vitamin C -) 500 mg PO BID [facility] Last Admin: 09/26/16 10:35 Dose: 500 mg Clonidine HCl (Catapres Tts Patch -) 0.1 mg TD Q7D@1000 [facility] Clotrimazole (Lotrimin 1% Cream -) 1 applic TP BID [facility] Last Admin: 09/26/16 10:44 Dose: 1 applic Ferrous Sulfate (Feosol -) 325 mg PO TIDCM [facility] Last Admin: 09/26/16 12:08 Dose: 325 mg Hydrocortisone (Anusol 2.5% Hc Cream -) 1 applic TP BID PRN PRN Reason: PAIN Last Admin: 09/26/16 10:43 Dose: 1 applic Nifedipine (Procardia Xl -) 60 mg PO DAILY [facility] Last Admin: 09/26/16 10:35 Dose: 60 mg Olanzapine (Zyprexa -) 5 mg PO HS [facility] Last Admin: 09/25/16 22:12 Dose: 5 mg Perphenazine (Trilafon) 2 mg PO BID [facility] Last Admin: 09/26/16 10:36 Dose: 2 mg Piperacillin Sod/Tazobactam Sod (Zosyn 3.375gm Ivpb (Pre-Docked)) 3.375 gm IVPB Q8H-IV [facility] Last Admin: 09/26/16 10:37 Dose: 3.375 gm Prednisone (Deltasone -) 50 mg PO DAILY [facility] Last Admin: 09/26/16 10:35 Dose: 50 mg Witch Swati/Glycerin (Tucks Pads -) 1 pad TP TID PRN PRN Reason: PAIN Last Admin: 09/22/16 12:13 Dose: 1 pad A/P 71 year old woman with PMhx of 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 Coli #Hypertension Continue Clonidine path and Procardia XL Goal BP < 140/90 Jhony Gordon DO
[2016-09-26] MEDS: ACETAMINOPHEN 325 MG TABLET (FP) PO PRN (16:28)
[2016-09-26] MEDS ORDERED: PT OWN MED DRAWER 7, Y5N ONE (20:58)
[2016-09-26] MEDS: OLANZapine 5 MG TABLET PO SCH (23:00)
[2016-09-27] MEDS: PIPERACILLIN/TAZOB 3.375 GM/50 ML PRE-DOCKED IVPB SCH ×3 (02:00→18:32)
[2016-09-27 07:04] LABS: MCH 30.6 pg (25.7-33.7); MCHC 33.2 g/dl (32.0-36.0); MEAN CELL VOLUME 92.2 fl (80-96); MEAN PLT VOLUME 7.7 fl (7.5-11.1); PLATELET COUNT 262 K/MM3 (134-434); RDW 15.6 % (11.6-15.6); WHITE BLOOD COUNT 9.2 K/mm3 (4.0-10.0)
[2016-09-27 07:42] LABS: CALCIUM 8.5 mg/dL (8.5-10.1); CREATININE 1.6 mg/dL (0.55-1.02); MAGNESIUM 1.6 mg/dL (1.8-2.4)
[2016-09-27] MEDS: FERROUS SO4 325 MG TABLET (FP) PO SCH ×3 (08:45→17:32)
[2016-09-27 09:21] LABS: METAMYELOCYTE 1 % (0-2); PLATELET ESTIMATE ADEQUATE (NORMAL)
[2016-09-27] MEDS: predniSONE 20 MG TABLET (UD) PO SCH (09:58)
[2016-09-27] MEDS: ASCORBIC ACID 500 MG TABLET (FP) PO SCH ×2 (10:00→22:34)
[2016-09-27] MEDS: NIFEdipine E.R 60 MG TABLET (UD) PO SCH (10:00)
[2016-09-27] MEDS: PERPHENAZINE 2 MG TABLET PO SCH ×2 (10:00→22:34)
[2016-09-27] MEDS: APIXABAN 2.5 MG TABLET PO SCH ×2 (10:00→22:33)
[2016-09-27] MEDS ORDERED: FUROSEMIDE 40 MG/4 ML INJECTABLE VIAL IVPUSH SCH (10:15)
--- NOTE | 2016-09-27 10:20 | PN ---
Progress Note, Physician History of Present Illness: COUGH - Current Medication List Current Medications: Active Medications Acetaminophen (Tylenol -) 650 mg PO Q6H PRN PRN Reason: FEVER OR PAIN Last Admin: 09/26/16 16:28 Dose: 650 mg Apixaban (Eliquis -) 2.5 mg PO BID [facility] Last Admin: 09/27/16 10:00 Dose: 2.5 mg Ascorbic Acid (Vitamin C -) 500 mg PO BID [facility] Last Admin: 09/27/16 10:00 Dose: 500 mg Clonidine HCl (Catapres Tts Patch -) 0.1 mg TD Q7D@1000 [facility] Clotrimazole (Lotrimin 1% Cream -) 1 applic TP BID [facility] Last Admin: 09/26/16 22:58 Dose: 1 applic Ferrous Sulfate (Feosol -) 325 mg PO TIDCM [facility] Last Admin: 09/27/16 08:45 Dose: 325 mg Hydrocortisone (Anusol 2.5% Hc Cream -) 1 applic TP BID PRN PRN Reason: PAIN Last Admin: 09/26/16 10:43 Dose: 1 applic Nifedipine (Procardia Xl -) 60 mg PO DAILY [facility] Last Admin: 09/27/16 10:00 Dose: 60 mg Olanzapine (Zyprexa -) 5 mg PO HS [facility] Last Admin: 09/26/16 23:00 Dose: 5 mg Perphenazine (Trilafon) 2 mg PO BID [facility] Last Admin: 09/27/16 10:00 Dose: 2 mg Piperacillin Sod/Tazobactam Sod (Zosyn 3.375gm Ivpb (Pre-Docked)) 3.375 gm IVPB Q8H-IV [facility] Last Admin: 09/27/16 10:00 Dose: 3.375 gm Prednisone (Deltasone -) 50 mg PO DAILY [facility] Last Admin: 09/27/16 09:58 Dose: 50 mg Witch Swati/Glycerin (Tucks Pads -) 1 pad TP TID PRN PRN Reason: PAIN Last Admin: 09/22/16 12:13 Dose: 1 pad - Objective Vital Signs: Vital Signs Temperature 97.3 F L 09/27/16 09:45 Pulse Rate 66 09/27/16 09:45 Respiratory Rate 18 09/27/16 09:45 Blood Pressure 164/74 09/27/16 09:45 O2 Sat by Pulse Oximetry (%) 96 09/26/16 21:00 Cardiovascular: Yes: S1, S2 Respiratory: Yes: On Nasal O2, Rhonchi Gastrointestinal: Yes: Normal Bowel Sounds, Soft Labs: CBC, BMP 09/27/16 06:50 09/27/16 06:50 INR, PTT INR 1.43 (0.82-1.09) H D 09/21/16 10:40 Assessment/Plan - Problems (1) UTI (urinary tract infection) Assessment/Plan: wbc trending down Microbiology 09/21/16 10:45 Urine - Urine - Catheterized Urine Culture - Final Escherichia Coli Escherichia Coli#2 iv abx Code(s): N39.0 - URINARY TRACT INFECTION, SITE NOT SPECIFIED (2) ANCA-positive vasculitis Assessment/Plan: prednisone 50mg daily to decrease by 10mg every week if renal function continue to improve iv hydration given cr was 1.8 yesterday abd today it is 2.2 Code(s): I77.6 - ARTERITIS, UNSPECIFIED (3) Anemia Assessment/Plan: TRANSFUSE PRBC--HEM CONSULT ferrous sulfate vitamin C iron deficient Code(s): D64.9 - ANEMIA, UNSPECIFIED Qualifiers: Anemia type: unspecified type Qualified Code(s): D64.9 - Anemia, unspecified (4) HTN (hypertension) Assessment/Plan: procardia and clonidine Code(s): I10 - ESSENTIAL (PRIMARY) HYPERTENSION (5) Vaginitis Assessment/Plan: diflucan given clotrimazole Code(s): N76.0 - ACUTE VAGINITIS (6) DVT (deep venous thrombosis) ON ELIQUIS Code(s): I82.409 - ACUTE EMBOLISM AND THOMBOS UNSP DEEP VN UNSP LOWER EXTREMITY (7) PNEUMONIA IV ABX NEBS CXR
[2016-09-27] MEDS: HYDROCORTISONE 2.5% TOPICAL CREAM 30 GM TUBE TP PRN (10:33)
[2016-09-27] MEDS: ACETAMINOPHEN 325 MG TABLET (FP) PO PRN (10:36)
[2016-09-27] MEDS: CLOTRIMAZOLE 1% CREAM 15 GM TUBE TP SCH ×2 (10:40→22:34)
[2016-09-27] MEDS: ALBUTEROL SO4 2.5/IPRATROPIUM 0.5 INH SOL 3 ML VIAL.NEB. NEB SCH ×3 (11:20→23:29)
--- NOTE | 2016-09-27 12:26 | PN ---
Progress Note (short form) - Note Progress Note: feels well, no complaints alert day #6 antibotics Vital Signs Period Temp Pulse Resp BP Sys/Zarate Pulse Ox Last 24 Hr 97.3 F-99.8 F 61-84 18-24 138-189/62-74 96-96 cor-rrr lulngs decreased bs at bases abd soft,nt ext no edema CBC, BMP 09/27/16 06:50 09/27/16 06:50 Microbiology 09/21/16 18:00 Blood - Peripheral Venous TB Test (QFT) (JÚNIOR) - Final 09/21/16 10:45 Blood - Peripheral Venous Blood Culture - Final NO GROWTH AFTER 5 DAYS INCUBATION 09/25/16 09:50 Urine For Antigen Detection Legionella Antigen - Final 09/25/16 09:50 Urine For Antigen Detection Streptococcus pneumoniae Antigen (M - Final 09/21/16 10:45 Blood - Peripheral Venous Blood Culture - Final Staph Capitis Subsp Capitis a/p day #6 zosyn for pneumonia- continue zosyn zithromax d/molly after 5 days consider change to po levaquin if ready for discharge immunocomporomised host- history vasculitis on steroids uti dementia anemia
[2016-09-27] MEDS: PANTOPRAZOLE 40 MG TABLET (FP) PO SCH (14:46)
--- NOTE | 2016-09-27 16:28 | PN ---
Progress Note (short form) - Note Progress Note: Renal Follow up for SHARI/CKD Pt seen and examined no acute complaints no sob, or chest pain denies any blood in stool nurse reports dark brown BM w/o gross blood Vital Signs Temperature 98.6 F 09/27/16 14:25 Pulse Rate 88 09/27/16 14:25 Respiratory Rate 18 09/27/16 14:25 Blood Pressure 152/76 09/27/16 14:25 O2 Sat by Pulse Oximetry (%) 96 09/27/16 09:00 Gen: NAD, awake and alert CVS: RRR, Lungs: Course BS Abd: soft NT/ND Ext: No edema, clubbing or cyanosis CBC, BMP 09/27/16 06:50 09/27/16 06:50 Current Medications Acetaminophen (Tylenol -) 650 mg PO Q6H PRN PRN Reason: FEVER OR PAIN Last Admin: 09/27/16 10:36 Dose: 650 mg Albuterol/Ipratropium (Duoneb -) 1 amp NEB QIDR [facility] Last Admin: 09/27/16 11:20 Dose: 1 amp Apixaban (Eliquis -) 2.5 mg PO BID [facility] Last Admin: 09/27/16 10:00 Dose: 2.5 mg Ascorbic Acid (Vitamin C -) 500 mg PO BID [facility] Last Admin: 09/27/16 10:00 Dose: 500 mg Clonidine HCl (Catapres Tts Patch -) 0.1 mg TD Q7D@1000 [facility] Clotrimazole (Lotrimin 1% Cream -) 1 applic TP BID [facility] Last Admin: 09/27/16 10:40 Dose: 1 applic Ferrous Sulfate (Feosol -) 325 mg PO TIDCM [facility] Last Admin: 09/27/16 12:08 Dose: 325 mg Hydrocortisone (Anusol 2.5% Hc Cream -) 1 applic TP BID PRN PRN Reason: PAIN Last Admin: 09/27/16 10:33 Dose: 1 applic Magnesium Sulfate (Magnesium Sulfate) 1 gm IVPB ONCE ONE Stop: 09/27/16 15:01 Nifedipine (Procardia Xl -) 60 mg PO DAILY [facility] Last Admin: 09/27/16 10:00 Dose: 60 mg Olanzapine (Zyprexa -) 5 mg PO HS [facility] Last Admin: 09/26/16 23:00 Dose: 5 mg Pantoprazole Sodium (Protonix -) 40 mg PO DAILY [facility] Last Admin: 09/27/16 14:46 Dose: 40 mg Perphenazine (Trilafon) 2 mg PO BID [facility] Last Admin: 09/27/16 10:00 Dose: 2 mg Piperacillin Sod/Tazobactam Sod (Zosyn 3.375gm Ivpb (Pre-Docked)) 3.375 gm IVPB Q8H-IV [facility] Last Admin: 09/27/16 10:00 Dose: 3.375 gm Prednisone (Deltasone -) 50 mg PO DAILY [facility] Last Admin: 09/27/16 09:58 Dose: 50 mg Witch Swati/Glycerin (Tucks Pads -) 1 pad TP TID PRN PRN Reason: PAIN Last Admin: 09/22/16 12:13 Dose: 1 pad A/P 71 year old woman with PMhx of 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
--- NOTE | 2016-09-27 20:54 | CONSULT ---
Consult - text type - Consultation Consultation Note: 70 year old female, resident of [facility], with past medical history of ANCA positive vascultitis, dementia, hypertension, DVT, GERD, anemia, anxiety , and depression, admitted with fever secondary to pneumonia. HPI The patient was found to have fever at the [facility] (104.8) and was referred to the ER., She reported mild dysuria and was otherwise asymptomatic. Urinalysis had protein 2+ and blood 3. CT of the chest reported with focal mass like densities in RUL and both lower lobes with air bronchogram suggestive of Pneumonia. 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 ) ...: No Psych: Yes: Anxiety, Depression - Smoking History Smoking history: Never smoked Home Medications - Allergies Allergies/Adverse Reactions: Allergies Allergy/AdvReac Type Severity Reaction Status Date / Time hydralazine AdvReac Verified 09/21/16 13:26 - Home Medications Home Medications: Ambulatory Orders Acetaminophen 650 mg PO Q6H PRN 07/14/16 Clonidine Patch [Catapres Tts Patch -] 0.1 mg TD WEEKLY 07/14/16 Docusate Sodium 300 mg PO HS 07/14/16 Folic Acid 1 mg PO DAILY 07/14/16 Polyethylene Glycol 3350 [Miralax 119 gm Btl -] 17 gm PO DAILY 07/14/16 Ranitidine HCl [Zantac] 150 mg PO BID 07/14/16 Rivastigmine Tartrate [Rivastigmine] 1.5 mg PO BID 07/14/16 Sennosides/Docusate Sodium [Senna Laxative Tablet] 1 each PO HS 07/14/16 Apixaban [Eliquis] 2.5 mg PO BID #30 tablet 07/20/16 Mirtazapine [Remeron -] 7.5 mg PO HS tablet 07/20/16 Calcium Carbonate/Vitamin D3 [Oyster Shell 500-Vit D3 200 Tb] 1 tab PO BID 08/14 Nifedipine ER [Procardia XL -] 60 mg PO BID tab.er.24 08/25/16 Prednisone [Deltasone -] 60 mg PO DAILY tablet 08/25/16 Olanzapine [Zyprexa] 5 mg PO HS 09/21/16 Perphenazine [Trilafon] 2 mg PO BID 09/21/16 Physical Exam Vital Signs: afvss Constitutional: Yes: Mild Distress Eyes: Yes: WNL HENT: Yes: WNL Neck: Yes: WNL Cardiovascular: Yes: WNL Respiratory: Yes: Other (Mild ronchi and scattered coarse crackles.) Gastrointestinal: Yes: WNL Musculoskeletal: Yes: WNL Labs: labs reviewed a/p 71 year old woman with PMhx of Dementia, Hypertension, DVT, GERD, Hep C, Anemia , Anxiety, Depression, recently diagnosed autoimmune nephritison immunosuppression who was sent in from [facility] with fever/chest congestion/ pnumonia h/o RLE DVT 11/01 --?/ recurrent at that time--s/p ivc filter. has been on eliquis. monitor renal fxn closely as may need to switch to coumadin if rnal function worsens anemia--anemia of chronic disease?--- infection +due to ckd from autoimmune pathology---++/KAIDEN/++ ANCA. renal fxn improved on immunosuppression iron studies---increased ferritin-- c/w anemia of chronic disease kristi/haptoglobin--nl--unlikely hemolysis. done previous admission will repeat LDH/cooms/hapto SIFE--faint band check stool occult --r/o bleed on eliquis/protonix/prednisone/feosol/vit. c gi consult basd on w/u needs transfusion for hgb <7
[2016-09-27] MEDS ORDERED: PT OWN MED DRAWER 7, Y5N ONE (22:28)
[2016-09-27] MEDS: OLANZapine 5 MG TABLET PO SCH (22:34)
[2016-09-28] MEDS ORDERED: FUROSEMIDE 40 MG/4 ML INJECTABLE VIAL IVPUSH SCH (02:00)
[2016-09-28] MEDS ORDERED: MAGNESIUM SULF 50% (8.12 MEQ/2 ML-1 GM VIAL) IVPB ONE (02:30)
[2016-09-28] MEDS: PIPERACILLIN/TAZOB 3.375 GM/50 ML PRE-DOCKED IVPB SCH ×3 (03:31→18:06)
[2016-09-28] MEDS: ALBUTEROL SO4 2.5/IPRATROPIUM 0.5 INH SOL 3 ML VIAL.NEB. NEB SCH ×4 (05:29→23:18)
[2016-09-28 06:06] LABS: SERUM IRON 86 ug/dL (27-139); TOTAL IRON BINDING CAPACITY 196 ug/dL (250-450); UIBC 110 ug/dL (118-369)
[2016-09-28] MEDS: FERROUS SO4 325 MG TABLET (FP) PO SCH ×3 (08:38→17:56)
[2016-09-28 08:43] LABS: BASOPHIL 0.5 % (0-2.0); EOSINOPHIL 0.1 % (0-4.5); MCH 30.7 pg (25.7-33.7); MCHC 34.1 g/dl (32.0-36.0); MEAN CELL VOLUME 89.9 fl (80-96); MEAN PLT VOLUME 7.6 fl (7.5-11.1); NEUTROPHILS 81.9 % (42.8-82.8); PLATELET COUNT 297 K/MM3 (134-434); RDW 15.3 % (11.6-15.6); WHITE BLOOD COUNT 12.7 K/mm3 (4.0-10.0)
[2016-09-28 09:23] LABS: CALCIUM 8.8 mg/dL (8.5-10.1); CREATININE 1.7 mg/dL (0.55-1.02); MAGNESIUM 1.8 mg/dL (1.8-2.4); PHOSPHOROUS 3.6 mg/dL (2.5-4.9)
[2016-09-28] MEDS ORDERED: cloNIDine-TTS 0.1 MG/24 HRS PATCH.TDWK TD SCH (10:00)
[2016-09-28] MEDS: predniSONE 20 MG TABLET (UD) PO SCH (10:15)
[2016-09-28] MEDS: ASCORBIC ACID 500 MG TABLET (FP) PO SCH ×2 (10:15→21:43)
[2016-09-28] MEDS: NIFEdipine E.R 60 MG TABLET (UD) PO SCH (10:15)
[2016-09-28] MEDS: APIXABAN 2.5 MG TABLET PO SCH ×2 (10:16→21:42)
[2016-09-28] MEDS: PANTOPRAZOLE 40 MG TABLET (FP) PO SCH (10:16)
[2016-09-28] MEDS: CLOTRIMAZOLE 1% CREAM 15 GM TUBE TP SCH ×2 (10:17→21:43)
[2016-09-28] MEDS: PERPHENAZINE 2 MG TABLET PO SCH ×2 (10:20→21:43)
--- NOTE | 2016-09-28 11:36 | PN ---
Progress Note (short form) - Note Progress Note: Renal Follow up for SHARI/CKD Pt seen and examined no acute complaints pt had a bm this am, nurse reports that it was brown. Stool occult blood not sent Vital Signs Temperature 98.5 F 09/28/16 08:18 Pulse Rate 80 09/28/16 08:18 Respiratory Rate 20 09/28/16 08:18 Blood Pressure 140/70 09/28/16 08:18 O2 Sat by Pulse Oximetry (%) 96 09/27/16 09:00 Intake & Output 09/25/16 09/26/16 09/27/16 09/28/16 23:59 23:59 23:59 23:59 Intake Total 920 1208 1925 550 Balance 920 1208 1925 550 Gen: NAD, awake and alert CVS: RRR, Lungs: Course BS Abd: soft NT/ND Ext: No edema, clubbing or cyanosis CBC, BMP 09/28/16 06:30 09/28/16 06:30 Current Medications Acetaminophen (Tylenol -) 650 mg PO Q6H PRN PRN Reason: FEVER OR PAIN Last Admin: 09/27/16 10:36 Dose: 650 mg Albuterol/Ipratropium (Duoneb -) 1 amp NEB QIDR [facility] Last Admin: 09/28/16 11:15 Dose: Not Given Apixaban (Eliquis -) 2.5 mg PO BID [facility] Last Admin: 09/28/16 10:16 Dose: 2.5 mg Ascorbic Acid (Vitamin C -) 500 mg PO BID [facility] Last Admin: 09/28/16 10:15 Dose: 500 mg Clonidine HCl (Catapres Tts Patch -) 0.1 mg TD Q7D@1000 [facility] Last Admin: 09/28/16 10:19 Dose: 0.1 mg Clotrimazole (Lotrimin 1% Cream -) 1 applic TP BID [facility] Last Admin: 09/28/16 10:17 Dose: 1 applic Ferrous Sulfate (Feosol -) 325 mg PO TIDCM [facility] Last Admin: 09/28/16 08:38 Dose: 325 mg Furosemide (Lasix Injection -) 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 [facility] Last Admin: 09/28/16 03:31 Dose: 40 mg Hydrocortisone (Anusol 2.5% Hc Cream -) 1 applic TP BID PRN PRN Reason: PAIN Last Admin: 09/27/16 10:33 Dose: 1 applic Nifedipine (Procardia Xl -) 60 mg PO DAILY [facility] Last Admin: 09/28/16 10:15 Dose: 60 mg Olanzapine (Zyprexa -) 5 mg PO HS [facility] Last Admin: 09/27/16 22:34 Dose: 5 mg Pantoprazole Sodium (Protonix -) 40 mg PO DAILY [facility] Last Admin: 09/28/16 10:16 Dose: 40 mg Perphenazine (Trilafon) 2 mg PO BID [facility] Last Admin: 09/28/16 10:20 Dose: 2 mg Piperacillin Sod/Tazobactam Sod (Zosyn 3.375gm Ivpb (Pre-Docked)) 3.375 gm IVPB Q8H-IV [facility] Last Admin: 09/28/16 10:15 Dose: 3.375 gm Potassium Chloride (K-Dur -) 40 meq PO ONCE ONE Stop: 09/28/16 11:46 Prednisone (Deltasone -) 50 mg PO DAILY [facility] Last Admin: 09/28/16 10:15 Dose: 50 mg Witch Swati/Glycerin (Tucks Pads -) 1 pad TP TID PRN PRN Reason: PAIN Last Admin: 09/22/16 12:13 Dose: 1 pad A/P 71 year old woman with PMhx of 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
[2016-09-28] MEDS ORDERED: POTASSIUM CHLORIDE TABS 20 MEQ TABLET.ER (FP) PO ONE (11:45)
--- NOTE | 2016-09-28 15:57 | PN ---
Progress Note, Physician History of Present Illness: COUGH - Current Medication List Current Medications: Active Medications Acetaminophen (Tylenol -) 650 mg PO Q6H PRN PRN Reason: FEVER OR PAIN Last Admin: 09/27/16 10:36 Dose: 650 mg Albuterol/Ipratropium (Duoneb -) 1 amp NEB QIDR [facility] Last Admin: 09/28/16 11:15 Dose: Not Given Apixaban (Eliquis -) 2.5 mg PO BID [facility] Last Admin: 09/28/16 10:16 Dose: 2.5 mg Ascorbic Acid (Vitamin C -) 500 mg PO BID [facility] Last Admin: 09/28/16 10:15 Dose: 500 mg Clonidine HCl (Catapres Tts Patch -) 0.1 mg TD Q7D@1000 [facility] Last Admin: 09/28/16 10:19 Dose: 0.1 mg Clotrimazole (Lotrimin 1% Cream -) 1 applic TP BID [facility] Last Admin: 09/28/16 10:17 Dose: 1 applic Ferrous Sulfate (Feosol -) 325 mg PO TIDCM [facility] Last Admin: 09/28/16 12:26 Dose: 325 mg Furosemide (Lasix Injection -) 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 [facility] Last Admin: 09/28/16 03:31 Dose: 40 mg Hydrocortisone (Anusol 2.5% Hc Cream -) 1 applic TP BID PRN PRN Reason: PAIN Last Admin: 09/27/16 10:33 Dose: 1 applic Nifedipine (Procardia Xl -) 60 mg PO DAILY [facility] Last Admin: 09/28/16 10:15 Dose: 60 mg Olanzapine (Zyprexa -) 5 mg PO HS [facility] Last Admin: 09/27/16 22:34 Dose: 5 mg Pantoprazole Sodium (Protonix -) 40 mg PO DAILY [facility] Last Admin: 09/28/16 10:16 Dose: 40 mg Perphenazine (Trilafon) 2 mg PO BID [facility] Last Admin: 09/28/16 10:20 Dose: 2 mg Piperacillin Sod/Tazobactam Sod (Zosyn 3.375gm Ivpb (Pre-Docked)) 3.375 gm IVPB Q8H-IV [facility] Last Admin: 09/28/16 10:15 Dose: 3.375 gm Prednisone (Deltasone -) 40 mg PO DAILY [facility] Witch Swati/Glycerin (Tucks Pads -) 1 pad TP TID PRN PRN Reason: PAIN Last Admin: 09/22/16 12:13 Dose: 1 pad - Objective Vital Signs: Vital Signs Temperature 98.5 F 09/28/16 14:46 Pulse Rate 66 09/28/16 14:46 Respiratory Rate 24 09/28/16 14:46 Blood Pressure 170/82 09/28/16 14:46 O2 Sat by Pulse Oximetry (%) 96 09/27/16 09:00 Cardiovascular: Yes: S1, S2 Respiratory: Yes: Rhonchi Gastrointestinal: Yes: Normal Bowel Sounds, Soft Edema: No Neurological: Yes: Alert, Oriented Labs: CBC, BMP 09/28/16 06:30 09/28/16 06:30 INR, PTT INR 1.43 (0.82-1.09) H D 09/21/16 10:40 Assessment/Plan - Problems (1) UTI (urinary tract infection) Assessment/Plan: wbc trending down Microbiology 09/21/16 10:45 Urine - Urine - Catheterized Urine Culture - Final Escherichia Coli Escherichia Coli#2 iv abx Code(s): N39.0 - URINARY TRACT INFECTION, SITE NOT SPECIFIED (2) ANCA-positive vasculitis Assessment/Plan: prednisone 50mg daily to decrease by 10mg every week if renal function continue to improve iv hydration given cr was 1.8 yesterday abd today it is 2.2 Code(s): I77.6 - ARTERITIS, UNSPECIFIED (3) Anemia Assessment/Plan: S/P TRANSFUSION OF PRBC--HEM CONSULT--GI ferrous sulfate vitamin C iron deficient Code(s): D64.9 - ANEMIA, UNSPECIFIED Qualifiers: Anemia type: unspecified type Qualified Code(s): D64.9 - Anemia, unspecified (4) HTN (hypertension) Assessment/Plan: procardia and clonidine Code(s): I10 - ESSENTIAL (PRIMARY) HYPERTENSION (5) Vaginitis Assessment/Plan: diflucan given clotrimazole Code(s): N76.0 - ACUTE VAGINITIS (6) DVT (deep venous thrombosis) ON ELIQUIS Code(s): I82.409 - ACUTE EMBOLISM AND THOMBOS UNSP DEEP VN UNSP LOWER EXTREMITY (7) PNEUMONIA IV ABX TO LEVAQUIN ON DC NEBS CXR
[2016-09-28] MEDS: OLANZapine 5 MG TABLET PO SCH (21:43)
--- NOTE | 2016-09-28 23:22 | PN ---
Progress Note (short form) - Note Progress Note: Patient seen and examined baseline confused not in any distress afvss HEENT: LIZANDRO, EOM Intact Cor: RSR, No murmurs, No gallops Lungs: Clear to P&A Abd: Soft, Normal bowel sounds, No organomegaly Ext:No significant edema Skin: No rashes, Integument intact Abnormal Lab Results 09/28/16 09/28/16 09/28/16 06:30 06:30 06:30 WBC 12.7 H D Potassium 3.3 L BUN 53 H Creatinine 1.7 H Random Glucose 114 H LD Total 353 H D Vitamin B12 1257 H Current Medications Acetaminophen (Tylenol -) 650 mg PO Q6H PRN PRN Reason: FEVER OR PAIN Last Admin: 09/27/16 10:36 Dose: 650 mg Albuterol/Ipratropium (Duoneb -) 1 amp NEB QIDR [facility] Last Admin: 09/29/16 06:50 Dose: Not Given Apixaban (Eliquis -) 2.5 mg PO BID [facility] Last Admin: 09/28/16 21:42 Dose: 2.5 mg Ascorbic Acid (Vitamin C -) 500 mg PO BID [facility] Last Admin: 09/28/16 21:43 Dose: 500 mg Clonidine HCl (Catapres Tts Patch -) 0.1 mg TD Q7D@1000 [facility] Last Admin: 09/28/16 10:19 Dose: 0.1 mg Clotrimazole (Lotrimin 1% Cream -) 1 applic TP BID [facility] Last Admin: 09/28/16 21:43 Dose: 1 applic Ferrous Sulfate (Feosol -) 325 mg PO TIDCM [facility] Last Admin: 09/28/16 17:56 Dose: 325 mg Hydrocortisone (Anusol 2.5% Hc Cream -) 1 applic TP BID PRN PRN Reason: PAIN Last Admin: 09/27/16 10:33 Dose: 1 applic Nifedipine (Procardia Xl -) 60 mg PO DAILY [facility] Last Admin: 09/28/16 10:15 Dose: 60 mg Olanzapine (Zyprexa -) 5 mg PO HS [facility] Last Admin: 09/28/16 21:43 Dose: 5 mg Pantoprazole Sodium (Protonix -) 40 mg PO DAILY [facility] Last Admin: 09/28/16 10:16 Dose: 40 mg Perphenazine (Trilafon) 2 mg PO BID [facility] Last Admin: 09/28/16 21:43 Dose: 2 mg Piperacillin Sod/Tazobactam Sod (Zosyn 3.375gm Ivpb (Pre-Docked)) 3.375 gm IVPB Q8H-IV [facility] Last Admin: 09/29/16 01:05 Dose: 3.375 gm Prednisone (Deltasone -) 40 mg PO DAILY [facility] Witch Swati/Glycerin (Tucks Pads -) 1 pad TP TID PRN PRN Reason: PAIN Last Admin: 09/22/16 12:13 Dose: 1 pad A/P 71 year old woman with PMhx of Dementia, Hypertension, DVT, GERD, Hep C, Anemia , Anxiety, Depression, 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 has been on eliquis. 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 renal fxn improved on immunosuppression plus occult gi bleed iron studies---increased ferritin-- c/w anemia of chronic disease plus decreased iron sat on 2/3 c/w iron deficiency kristi/haptoglobin--nl--unlikely hemolysis. ldh --mildly elevated SIFE--faint band check stool occult --r/o bleed on eliquis/protonix/prednisone/feosol/vit. c gi consult if recurrent anemia s/p 2units prbc for hgb of 7.5 with good response
[2016-09-29] MEDS: PIPERACILLIN/TAZOB 3.375 GM/50 ML PRE-DOCKED IVPB SCH ×2 (01:05→10:53)
[2016-09-29] MEDS: ALBUTEROL SO4 2.5/IPRATROPIUM 0.5 INH SOL 3 ML VIAL.NEB. NEB SCH ×2 (06:50→11:40)
[2016-09-29 08:46] LABS: BASOPHIL 0.5 % (0-2.0); EOSINOPHIL 0.2 % (0-4.5); MCH 30.7 pg (25.7-33.7); MCHC 33.6 g/dl (32.0-36.0); MEAN CELL VOLUME 91.4 fl (80-96); MEAN PLT VOLUME 7.7 fl (7.5-11.1); NEUTROPHILS 86.4 % (42.8-82.8); PLATELET COUNT 316 K/MM3 (134-434); RDW 15.1 % (11.6-15.6); WHITE BLOOD COUNT 13.3 K/mm3 (4.0-10.0)
[2016-09-29] MEDS: FERROUS SO4 325 MG TABLET (FP) PO SCH ×2 (08:53→12:46)
[2016-09-29 09:21] LABS: ALBUMIN 2.6 g/dl (3.4-5.0); BILIRUBIN,TOTAL 0.4 mg/dL (0.2-1.0); CALCIUM 8.9 mg/dL (8.5-10.1); CREATININE 1.9 mg/dL (0.55-1.02); PHOSPHOROUS 3.9 mg/dL (2.5-4.9); TOT PROT 6.5 g/dl (6.4-8.2)
[2016-09-29 09:23] LABS: MAGNESIUM 1.9 mg/dL (1.8-2.4)
[2016-09-29] MEDS ORDERED: PT OWN MED DRAWER 7, Y5N ONE (09:31)
[2016-09-29] MEDS ORDERED: predniSONE 20 MG TABLET (UD) PO SCH (10:00)
--- NOTE | 2016-09-29 10:36 | DS ---
Physical Examination Vital Signs: Vital Signs Temperature 97.7 F 09/29/16 07:57 Pulse Rate 65 09/29/16 07:57 Respiratory Rate 18 09/29/16 07:57 Blood Pressure 132/77 09/29/16 07:57 O2 Sat by Pulse Oximetry (%) 96 09/29/16 09:00 Findings/Remarks: NO COMPLAINTS TODAY Cardiovascular: Yes: Regular Rate and Rhythm Respiratory: Yes: Regular, CTA Bilaterally Gastrointestinal: Yes: Normal Bowel Sounds, Soft Labs: CBC, BMP 09/29/16 07:00 09/29/16 07:00 Discharge Summary Reason For Visit: UTI,PNA,SEPSIS Current Active Problems Dehydration (Acute) Dementia (Acute) Failure to thrive in adult (Acute) Healthcare associated bacterial pneumonia (Acute) Lactic acid acidosis (Acute) Sepsis (Acute) UTI (urinary tract infection) (Acute) Vaginitis (Acute) Hospital Course: - Problems (1) UTI (urinary tract infection) Assessment/Plan: wbc trending down Microbiology 09/21/16 10:45 Urine - Urine - Catheterized Urine Culture - Final Escherichia Coli Escherichia Coli#2 iv abx Code(s): N39.0 - URINARY TRACT INFECTION, SITE NOT SPECIFIED (2) ANCA-positive vasculitis Assessment/Plan: prednisone 50mg daily to decrease by 10mg every week if renal function continue to improve iv hydration given cr was 1.8 yesterday abd today it is 2.2 Code(s): I77.6 - ARTERITIS, UNSPECIFIED (3) Anemia Assessment/Plan: S/P TRANSFUSION OF PRBC--HEM CONSULT--GI ferrous sulfate vitamin C iron deficient Code(s): D64.9 - ANEMIA, UNSPECIFIED Qualifiers: Anemia type: unspecified type Qualified Code(s): D64.9 - Anemia, unspecified (4) HTN (hypertension) Assessment/Plan: procardia and clonidine Code(s): I10 - ESSENTIAL (PRIMARY) HYPERTENSION (5) Vaginitis Assessment/Plan: diflucan given clotrimazole Code(s): N76.0 - ACUTE VAGINITIS (6) DVT (deep venous thrombosis) ON ELIQUIS Code(s): I82.409 - ACUTE EMBOLISM AND THOMBOS UNSP DEEP VN UNSP LOWER EXTREMITY (7) PNEUMONIA IV ABX TO LEVAQUIN ON DC NEBS CXR Condition: Improved - Instructions Diet, Activity, Other Instructions: CBC AND BMP ON SUNDAY AND EVERY WEEK Referrals: Rosa Isela Martinez MD [Primary Care Provider] - Disposition: [facility] FACILITY - Home Medications Comprehensive Discharge Medication List: Ambulatory Orders Mirtazapine [Remeron -] 7.5 mg PO HS tablet 07/20/16 Acetaminophen [Tylenol .Regular Strength -] 650 mg PO Q6H PRN #0 tablet Albuterol 2.5/Ipratropium 0.5 [Duoneb -] 1 amp NEB QIDR amp 09/29/16 Apixaban [Eliquis -] 2.5 mg PO BID tablet 09/29/16 Ascorbic Acid [Vitamin C -] 500 mg PO BID tablet 09/29/16 Clonidine Patch [Catapres Tts Patch -] 0.1 mg TD Q7D@1000 patch.tdwk 09/29/16 Clotrimazole [Lotrimin -] 1 applic TP BID tube 09/29/16 Ferrous Sulfate [Feosol] 325 mg PO TIDCM ud 09/29/16 Hydrocortisone 2.5% Topical Cr [Anusol-Hc -] 1 applic TP BID PRN #0 tube Levofloxacin [Levaquin -] 250 mg PO DAILY #7 tablet 09/29/16 Nifedipine ER [Procardia XL -] 60 mg PO DAILY tab.er.24 09/29/16 Olanzapine [Zyprexa -] 5 mg PO HS tablet 09/29/16 Pantoprazole Sodium [Protonix -] 40 mg PO DAILY tablet.ec 09/29/16 Perphenazine [Trilafon -] 2 mg PO BID tablet 09/29/16 Prednisone [Deltasone -] 40 mg PO DAILY tablet 09/29/16 Witch Swati 50% (Tucks) [Tucks Pads -] 1 pad TP TID PRN #0 pad 09/29/16
[2016-09-29] MEDS: NIFEdipine E.R 60 MG TABLET (UD) PO SCH (10:39)
[2016-09-29] MEDS: ASCORBIC ACID 500 MG TABLET (FP) PO SCH (10:40)
[2016-09-29] MEDS: APIXABAN 2.5 MG TABLET PO SCH (10:40)
[2016-09-29] MEDS: CLOTRIMAZOLE 1% CREAM 15 GM TUBE TP SCH (10:40)
[2016-09-29] MEDS: PANTOPRAZOLE 40 MG TABLET (FP) PO SCH (10:40)
[2016-09-29] MEDS: PERPHENAZINE 2 MG TABLET PO SCH (10:41)
--- NOTE | 2016-09-29 13:10 | PN ---
Progress Note (short form) - Note Progress Note: Renal Follow up for SHARI/CKD Pt seen and examined no complaints s/p prbc transfusion yesterday no additional BM's Vital Signs Temperature 97.7 F 09/29/16 07:57 Pulse Rate 65 09/29/16 07:57 Respiratory Rate 18 09/29/16 07:57 Blood Pressure 132/77 09/29/16 07:57 O2 Sat by Pulse Oximetry (%) 96 09/29/16 09:00 Intake & Output 09/26/16 09/27/16 09/28/16 09/29/16 23:59 23:59 23:59 23:59 Intake Total 1208 1925 1175 435 Balance 1208 1925 1175 435 Gen: NAD, awake and alert CVS: RRR, Lungs: Course BS Abd: soft NT/ND Ext: No edema, clubbing or cyanosis CBC, BMP 09/29/16 07:00 09/29/16 07:00 Current Medications Acetaminophen (Tylenol -) 650 mg PO Q6H PRN PRN Reason: FEVER OR PAIN Last Admin: 09/27/16 10:36 Dose: 650 mg Albuterol/Ipratropium (Duoneb -) 1 amp NEB QIDR [facility] Last Admin: 09/29/16 11:40 Dose: 1 amp Apixaban (Eliquis -) 2.5 mg PO BID [facility] Last Admin: 09/29/16 10:40 Dose: 2.5 mg Ascorbic Acid (Vitamin C -) 500 mg PO BID [facility] Last Admin: 09/29/16 10:40 Dose: 500 mg Clonidine HCl (Catapres Tts Patch -) 0.1 mg TD Q7D@1000 [facility] Last Admin: 09/28/16 10:19 Dose: 0.1 mg Clotrimazole (Lotrimin 1% Cream -) 1 applic TP BID [facility] Last Admin: 09/29/16 10:40 Dose: 1 applic Ferrous Sulfate (Feosol -) 325 mg PO TIDCM [facility] Last Admin: 09/29/16 12:46 Dose: 325 mg Hydrocortisone (Anusol 2.5% Hc Cream -) 1 applic TP BID PRN PRN Reason: PAIN Last Admin: 09/27/16 10:33 Dose: 1 applic Nifedipine (Procardia Xl -) 60 mg PO DAILY [facility] Last Admin: 09/29/16 10:39 Dose: 60 mg Olanzapine (Zyprexa -) 5 mg PO HS [facility] Last Admin: 09/28/16 21:43 Dose: 5 mg Pantoprazole Sodium (Protonix -) 40 mg PO DAILY [facility] Last Admin: 09/29/16 10:40 Dose: 40 mg Perphenazine (Trilafon) 2 mg PO BID [facility] Last Admin: 09/29/16 10:41 Dose: 2 mg Piperacillin Sod/Tazobactam Sod (Zosyn 3.375gm Ivpb (Pre-Docked)) 3.375 gm IVPB Q8H-IV [facility] Last Admin: 09/29/16 10:53 Dose: 3.375 gm Prednisone (Deltasone -) 40 mg PO DAILY [facility] Last Admin: 09/29/16 10:40 Dose: 40 mg Witch Swati/Glycerin (Tucks Pads -) 1 pad TP TID PRN PRN Reason: PAIN Last Admin: 09/22/16 12:13 Dose: 1 pad A/P 71 year old woman with PMhx of 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
[2016-09-29 15:28] VITALS: BP 163/78; PULSE 61; TEMP 98.6
[2016-09-30 08:06] LABS: HEMATOCRIT 32.2 % (34.0-46.6)
== END 2016-09-29 16:59 | DRG 871 ==
LOC: JER 09:28 → JERBED 11:31 → J5S 12:33
PROVIDERS: ADMIT Student in an Organized Health Care Education/Training Program; ATTEND Student in an Organized Health Care Education/Training Program
PROC: 30233N1 Transfusion of Nonautologous Red Blood Cells into Peripheral Vein, Percutaneous Approach (ICD-10-PCS; principal; 2016-09-27)
DX: A41.9 Sepsis, unspecified organism (principal); J18.9 Pneumonia, unspecified organism; N39.0 Urinary tract infection, site not specified; N17.9 Acute kidney failure, unspecified; F03.90 Unspecified dementia, unspecified severity, without behavioral disturbance, psychotic disturbance, mood disturbance, and anxiety; K21.9 Gastro-esophageal reflux disease without esophagitis; B19.20 Unspecified viral hepatitis C without hepatic coma; F41.9 Anxiety disorder, unspecified; F32.9 Major depressive disorder, single episode, unspecified; Z86.718 Personal history of other venous thrombosis and embolism; N76.0 Acute vaginitis; Z87.891 Personal history of nicotine dependence; I77.6 Arteritis, unspecified; D63.1 Anemia in chronic kidney disease; I12.9 Hypertensive chronic kidney disease with stage 1 through stage 4 chronic kidney disease, or unspecified chronic kidney disease; N18.9 Chronic kidney disease, unspecified; B96.20 Unspecified Escherichia coli [E. coli] as the cause of diseases classified elsewhere
CPT/HCPCS: 36415; 36430; 71010-TC; 71250-TC; 80048; 80053; 81003; 81015; 82550; 82607; 82728; 82747; 82803; 83010; 83540; 83550; 83605; 83615; 83735; 84100; 84484; 85014; 85025; 85044; 85610; 85730; 86480; 86850; 86880; 86900; 86901; 86922; 87040; 87086; 87186; 87254; 87804; 87899; 93005; 93010; 94640; 99284-25; P9058

== ENCOUNTER 2018-05-24 14:02 | Emergency (ER) | payer OTHER ==
--- NOTE | 2018-05-24 14:13 | PDOC ---
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 The patient herself denies any symptoms and states this is the one millionth time she has been taken to the hospital for high blood pressure without symptoms. This is not the highest her blood pressure has ever been. She denies INGRAM, chest pain, SOB, leg swelling, lightheadedness, dizziness, vision changes, abdominal pain, n/t/w focally, or other symptoms. 05/24/18 14:34 On conversation with the patient's RN at [facility] ([facility]) it is clear that the patient's initial high blood pressure at the [facility] today was closer to 217/85, repeated to be similarly high. Dr. Natarajan (the patient's PCP) was on site and the patient was given nifedipine 60 mg and Losartan 100 mg, after which time her BP was 192/86. The patient does not normally take Nifedipine and Losartan. They sent the patient to the ED because her normal clonidine patch prescription is being refilled and will not be ready until tonight, and they were concerned about rebound hypertension. She normally uses clonidine patch 0.3 mg/24 hr weekly patch. Past History - Past Medical History Allergies/Adverse Reactions: Allergies Allergy/AdvReac Type Severity Reaction Status Date / Time hydralazine AdvReac Verified 05/24/18 14:07 Home Medications: Ambulatory Orders Acetaminophen [Tylenol .Regular Strength -] 650 mg PO Q6H PRN #0 tablet Apixaban [Eliquis -] 2.5 mg PO BID tablet 09/29/16 Clonidine Patch [Catapres Tts Patch -] 0.1 mg TD Q7D@1000 patch.tdwk 09/29/16 Ascorbic Acid [Vitamin C -] 1,000 mg PO DAILY 05/24/18 Docusate Liquid [Colace Liquid -] 50 mg PO TID 05/24/18 Folic Acid 1 mg PO DAILY 05/24/18 Losartan Potassium 100 mg PO ONCE 05/24/18 Mirtazapine 30 mg PO DAILY 05/24/18 Nystatin Cream [Mycostatin] 1 applic TP BID 05/24/18 Polyethylene Glycol 3350 [Miralax (For Daily Use) -] 17 gm PO DAILY 05/24/18 Ranitidine [Zantac -] 150 mg PO DAILY 05/24/18 Rivastigmine Tartrate [Rivastigmine] 1.5 mg PO BID 05/24/18 Vitamin B Complex [B Complex] 1 each PO DAILY 05/24/18 Anemia: Yes Cardiac Disorders: Yes (bradycardia,dvt) CHF: No Dementia: Yes Diabetes: No GI Disorders: Yes (gerd, failure to thrive) Disorders: Yes (ckd) HTN: Yes Liver Disease: Yes (Hep C) Psychiatric Problems: Yes (anxiety/depression,dementia) - Immunization History Immunization Up to Date: Yes - Suicide/Smoking/Psychosocial Hx Smoking History: Never smoked Have you smoked in the past 12 months: No Number of Cigarettes Smoked Daily: 0 If you are a former smoker, when did you quit?: 5 years ago Hx Alcohol Use: No Drug/Substance Use Hx: No Substance Use Type: None Hx Substance Use Treatment: No Review of Systems - Review of Systems Able to Perform ROS?: Yes Constitutional: No: Chills, Fever, Unexplained wgt Loss HEENTM: No: Nose Congestion, Throat Pain Respiratory: No: Cough, Shortness of Breath Cardiac (ROS): No: Chest Pain, Palpitations ABD/GI: No: Constipated, Diarrhea, Nausea, Vomiting : No: Burning, Dysuria Musculoskeletal: No: Back Pain, Neck Pain Integumentary: No: Bruising, Rash Neurological: No: Headache, Numbness, Tingling, Weakness, Dizziness Endocrine: No: Unexplained Weight Gain, Unexplained Weight Loss *Physical Exam - Physical Exam General Appearance: Yes: Nourished, Appropriately Dressed, Other (very well appearing older adult female in no distress and answering all questions appropriately). No: Apparent Distress HEENT: positive: EOMI, DASHAWN, Normal Voice, Hearing Grossly Normal. negative: Scleral Icterus (R), Scleral Icterus (L), Nasal Congestion Neck: positive: Trachea midline, Supple. negative: Tender, Rigid Respiratory/Chest: positive: Lungs Clear, Normal Breath Sounds. negative: Respiratory Distress, Crackles, Rhonchi, Stridor, Wheezing Cardiovascular: positive: Regular Rhythm, Regular Rate, S1, S2. negative: Edema , JVD, Murmur Gastrointestinal/Abdominal: positive: Normal Bowel Sounds, Flat, Soft. negative : Tender, Organomegaly, Pulsatile Mass, Guarding Musculoskeletal: positive: Normal Inspection. negative: Decreased Range of Motion, Vertebral Tenderness Extremity: positive: Normal Capillary Refill, Normal Inspection, Normal Range of Motion. negative: Tender, Cyanosis Integumentary: positive: Normal Color, Dry, Warm. 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 negative: Facial Droop, Confused, Disoriented Medical Decision Making - Medical Decision Making 05/24/18 14:42 Older adult female patient p/w HTN now resolved with nifedipine and losartan. Not using her clonidine patch because it has not been filled; due to be delivered tonight to [facility]. Initial Vital Signs Temp Pulse Resp BP Pulse Ox 98.3 F 77 18 148/74 98 05/24/18 14:24 05/24/18 14:24 05/24/18 14:24 05/24/18 14:24 05/24/18 14:24 Exam: As noted in Physical Exam section. DDX IBNLT: medication non-adherence, primary (essential) HTN, renal disease, medications (e.g. OCPs, NSAIDs, antidepressants, steroids), hypercortisolism ( Linh syndrome), primary hyperaldosteronism (Conn syndrome), pheochromocytoma , hyper/hypothyroidism, hyperparathyroidism, coarctation of aorta, obstructive sleep apnea, etc. Main emergency concern is to r/o hypertensive emergency. W/U ordered: EKG TX ordered: None Unlikely hypertensive emergency at Pt has no INGRAM, AMS, visual change, neuro sxs, angina, pulmonary edema, or e/o renal failure. EKG: Reviewed; results as noted in ECG Review section. Reassessment: Unchanged. 05/24/18 15:40 BP 114/65, HR 73, O2 98% on RA, T 97.9 DISCHARGE Patient's blood pressure has been measured non-concerning multiple times in the ED. On last reassessment, vitals are wnl, pain is reasonably controlled, and exam is benign. Workup is not concerning for emergency-level pathology at this time. This patient is appropriate for discharge with close outpatient follow up. They are comfortable with this plan and will follow up with their primary care provider in 1-3 days. Specific return precautions are discussed and they will come back to the ER if necessary. *DC/Admit/Observation/Transfer Diagnosis at time of Disposition: HTN (hypertension) Qualifiers: Hypertension type: unspecified Qualified Code(s): I10 - Essential (primary) hypertension - Discharge Dispostion Disposition: LONG TERM FACILITY Condition at time of disposition: Stable Decision to Admit order: No - Referrals Referrals: Rosa Isela Martinez MD [Primary Care Provider] - Kady Terry MD [Staff Physician] - [facility] [place] [Provider Group] - Patient Instructions Additional Instructions: YOU WERE SEEN IN THE ER FOR HIGH BLOOD PRESSURE AT YOUR LONG TERM, WHICH HAD RESOLVED BY THE TIME YOU ARRIVED TO THE ER. WE DID AN EXAM AND AN ELECTROCARDIOGRAM. AFTER OUR ASSESSMENT, WE DO NOT BELIEVE YOU ARE HAVING A MEDICAL EMERGENCY AT THIS TIME, AND WE BELIEVE YOU ARE SAFE TO GO HOME. USUALLY , THE BLOOD PRESSURE HAS TO GO VERY HIGH IN ORDER TO BE A DANGEROUS PROBLEM, ESPECIALLY IF YOU ARE NOT HAVING ANY SYMPTOMS LIKE HEADACHE, DIZZINESS, SHORTNESS OF BREATH, OR CHEST PAIN. HIGH BLOOD PRESSURE IS A CHRONIC MEDICAL PROBLEM THAT IS IMPORTANT TO CORRECT IN THE LONG RUN, BUT WITHOUT SYMPTOMS IT USUALLY IS A PROBLEM THAT CAN BE MANAGED WITH A VISIT TO YOUR PRIMARY DOCTOR. YOUR MEDICATIONS MAY NEED TO BE ADJUSTED AND THIS IS SOMETHING THAT YOUR PRIMARY DOCTOR SHOULD DO INSTEAD OF THE DOCTORS HERE AT THE EMERGENCY DEPARTMENT. PLEASE FOLLOW UP WITH YOUR REGULAR PCP IN 1-3 DAYS FOR A BLOOD PRESSURE RE-CHECK. CALL THEIR CLINIC, TELL THEM YOU WERE SEEN IN THE ER, AND TELL THEM YOU NEED A FOLLOW-UP APPOINTMENT SOON POSSIBLE. RE-START YOUR CLONIDINE PATCH TONIGHT OR TOMORROW NIGHT (BUT HAVE YOUR BLOOD PRESSURE RE- CHECKED BEFORE APPLYING IT TO MAKE SURE YOUR BLOOD PRESSURE DOES NOT GO TOO LOW) . IF YOU HAVE ANY NEW OR WORSENING SYMPTOMS, ESPECIALLY HEADACHE, VISION CHANGES , NUMBNESS, TINGLING, WEAKNESS OF ONE PART OF YOUR BODY, NECK PAIN, CHEST PAIN, SHORTNESS OF BREATH, DIZZINESS, OR OTHER SYMPTOMS, PLEASE COME BACK TO THE ER AT ANY TIME (24 HOURS A DAY). IF YOU ARE HAVING SEVERE OR LIFE THREATENING SYMPTOMS, OR SYMPTOMS THAT MAKE IT UNSAFE TO DRIVE OR HAVE SOMEONE DRIVE YOU, PLEASE CALL 911. - Post Discharge Activity
[2018-05-24 14:28] VITALS: BMI 24.3
--- NOTE | 2018-05-24 15:14 | PDOC ---
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 lungs clear, RRR, abdomen soft nontender. CHAVARRIA x4, no focal neuro deficits. No peripheral edema. normal color for ethnicity, WWP. 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 Nonspecific T wave abnormalities no symptoms, BP resolving and downtrending, 148/74. asymptomatic HTN, no indication to treat. well appearing, NAD. no labs indicated. no signs of infection or toxicity. rx'd with clonidine patch. PMD referrals given, for bp recheck, considering antihypertensive initiation for control. avoid salt intake and minimize triggers return precautions given, symptoms including cp, sob, dizziness, sierra, neuro changes, AMS, dehydration, etc... pt agree to impression and plan, made aware, questions answered. back to [facility]. 05/24/18 15:12 Heart Score/ECG Review - ECG Impressions Normal ECG: Yes Comment:: 05/24/18 15:12 EKG normal sinus rhythm, no interval abnormalities, narrow QRS, ST and T wave segments and morphology normal. Nonspecific T wave abnormalities
[2018-05-24 16:20] VITALS: BP 114/65; PULSE 73; TEMP 97.9
--- NOTE | 2018-05-25 17:11 | EKG ---
Test Reason : Blood Pressure : / mmHG Vent. Rate : 075 BPM Atrial Rate : 075 BPM P-R Int : 120 ms QRS Dur : 080 ms QT Int : 404 ms P-R-T Axes : 052 -30 055 degrees QTc Int : 451 ms NORMAL SINUS RHYTHM LEFT AXIS DEVIATION NONSPECIFIC T WAVE ABNORMALITY ABNORMAL ECG WHEN COMPARED WITH ECG OF 21-SEP-2016 10:07, NO SIGNIFICANT CHANGE WAS FOUND BASELINE ARTIFACT Confirmed by MISSAEL HUGHES, BRIANNA ([id number]) on 05/25/2018 5:11:21 PM Referred By: Confirmed By:BRIANNA CANAS MD
== END 2018-05-24 21:15 ==
LOC: JER 14:02
DX: I10 Essential (primary) hypertension (principal); N18.9 Chronic kidney disease, unspecified; B18.2 Chronic viral hepatitis C; D64.9 Anemia, unspecified; K21.9 Gastro-esophageal reflux disease without esophagitis; F41.9 Anxiety disorder, unspecified; F32.9 Major depressive disorder, single episode, unspecified; Z86.718 Personal history of other venous thrombosis and embolism; Z79.01 Long term (current) use of anticoagulants
CPT/HCPCS: 93005; 93010; 99282-25

== ENCOUNTER 2023-03-22 11:37 | Inpatient (IN) | payer OTHER ==
[2023-03-22 11:56] VITALS: BMI 22.8
[2023-03-22] MEDS ORDERED: amLODIPine BESYLATE 10 MG TABLET (FP) PO ONE (13:03)
[2023-03-22] MEDS ORDERED: amLODIPine BESYLATE 10 MG TABLET (FP) ONE (13:57)
[2023-03-22 14:42] LABS: INR 1.03 (0.83-1.09)
[2023-03-22 14:45] LABS: ACTIVATED PTT 33.2 SECONDS (25.2-36.5)
[2023-03-22 14:50] LABS: VENOUS BASE EXCESS -3.5 mmol/L (-2-2); VENOUS O2 SATURATION 75.5 % (70-80); VENOUS PH 7.34 (7.310-7.410)
[2023-03-22 14:52] LABS: EOS % 2.5 % (0-4.5); HEMATOCRIT 37.9 % (32.4-45.2); HEMOGLOBIN 12.2 GM/dL (10.7-15.3); LYMPH % 25.3 % (8-40); MCH 29.4 pg (25.7-33.7); MCHC 32.1 g/dl (32.0-36.0); MEAN CELL VOLUME 91.5 fl (80-96); MEAN PLT VOLUME 8.8 fl (7.5-11.1); MONO % 7.9 % (3.8-10.2); NEUT % 63.3 % (42.8-82.8); PLATELET COUNT 243 10^3/uL (134-434); RBC 4.14 M/mm3 (3.60-5.2); RDW 13.5 % (11.6-15.6); WHITE BLOOD COUNT 5.2 K/mm3 (4.0-10.0)
[2023-03-22 15:32] LABS: POTASSIUM 5.3 mmol/L (3.5-5.1)
[2023-03-22 15:34] LABS: CALCIUM 9.7 mg/dL (8.5-10.1)
[2023-03-22 15:35] LABS: ALBUMIN 3.4 g/dl (3.4-5.0); BLOOD UREA NITROGEN 46.6 mg/dL (7-18)
[2023-03-22 15:38] LABS: CREATININE 1.9 mg/dL (0.55-1.3)
[2023-03-22 15:39] LABS: BILIRUBIN,TOTAL 0.6 mg/dL (0.2-1)
[2023-03-22 15:40] LABS: TOT PROT 6.9 g/dl (6.4-8.2)
[2023-03-22] MEDS ORDERED: cloNIDine HCL 0.1 MG TABLET PO ONE (16:40)
[2023-03-22] MEDS ORDERED: cloNIDine HCL 0.1 MG TABLET ONE (16:43)
[2023-03-22] MEDS ORDERED: SENNOSIDES 8.6MG TABLET (FP) PO PRN (18:52)
[2023-03-22] MEDS ORDERED: cloNIDine-TTS 0.1 MG/24 HRS PATCH.TDWK TD SCH (18:53)
[2023-03-22 19:57] LABS: URINE COLOR YELLOW
[2023-03-22 19:58] LABS: URINE APPEARANCE CLEAR; URINE BILIRUBIN NEGATIVE (NEGATIVE); URINE GLUCOSE (UA) NEGATIVE (NEGATIVE); URINE KETONE NEGATIVE (NEGATIVE); URINE LEUK ESTERASE TRACE (NEGATIVE); URINE NITRITE POSITIVE (NEGATIVE); URINE PROTEIN 30 (NEGATIVE); URINE UROBILINOGEN 0.2 mg/dL (0.2-1.0)
[2023-03-22] MEDS: DONEPEZIL HCL 10 MG TABLET (FP) PO SCH (21:20)
[2023-03-22] MEDS: MELATONIN 5 MG TABLETS PO SCH (21:20)
[2023-03-22] MEDS: METOPROLOL TARTRATE 25 MG TABLET (FP) PO SCH (21:20)
[2023-03-22] MEDS: HYDROCHLOROTHIAZIDE 25 MG TABLET (FP) PO SCH (21:20)
[2023-03-22] MEDS: MEMANTINE HCL 10 MG TABLET (FP) PO SCH (21:21)
[2023-03-22] MEDS: ATORVASTATIN CA 40 MG TABLET (FP) PO SCH (21:21)
[2023-03-22] MEDS: FAMOTIDINE 10 MG TABLET PO SCH (21:21)
[2023-03-22] MEDS: LATANOPROST 0.005% OPHTH SOLN 2.5ML BOTTLE OU SCH (22:55)
[2023-03-23 08:50] LABS: BASO % 0.7 % (0-2.0); EOS % 0.5 % (0-4.5); HEMATOCRIT 39.1 % (32.4-45.2); HEMOGLOBIN 13.1 GM/dL (10.7-15.3); LYMPH % 15.6 % (8-40); MCH 29.9 pg (25.7-33.7); MCHC 33.4 g/dl (32.0-36.0); MEAN CELL VOLUME 89.7 fl (80-96); MEAN PLT VOLUME 8.8 fl (7.5-11.1); NEUT % 77.2 % (42.8-82.8); PLATELET COUNT 256 10^3/uL (134-434); RBC 4.36 M/mm3 (3.60-5.2); RDW 13.8 % (11.6-15.6); WHITE BLOOD COUNT 6.4 K/mm3 (4.0-10.0)
[2023-03-23 09:00] LABS: POTASSIUM 4.7 mmol/L (3.5-5.1)
[2023-03-23 09:03] LABS: ALBUMIN 3.6 g/dl (3.4-5.0); BLOOD UREA NITROGEN 40.9 mg/dL (7-18); CALCIUM 9.9 mg/dL (8.5-10.1); MAGNESIUM 2.5 mg/dL (1.8-2.4)
[2023-03-23 09:06] LABS: CREATININE 1.9 mg/dL (0.55-1.3); PHOSPHOROUS 4.1 mg/dL (2.5-4.9)
[2023-03-23 09:07] LABS: BILIRUBIN,TOTAL 0.7 mg/dL (0.2-1)
[2023-03-23 09:08] LABS: TOT PROT 7.1 g/dl (6.4-8.2)
[2023-03-23] MEDS: SPIRONOLACTONE 25 MG TABLET PO SCH (09:20)
[2023-03-23] MEDS: METOPROLOL TARTRATE 25 MG TABLET (FP) PO SCH ×2 (09:20→21:36)
[2023-03-23] MEDS: POLYETHYLENE GLYCOL (HEALTHYLAX) 3350 17 GM PACKET PO SCH (09:20)
[2023-03-23] MEDS: SERTRALINE HCL 50 MG TABLET (FP) PO SCH (09:20)
[2023-03-23] MEDS: MEMANTINE HCL 10 MG TABLET (FP) PO SCH ×2 (09:20→21:36)
[2023-03-23] MEDS: APIXABAN 2.5 MG TABLET PO SCH ×2 (09:20→21:35)
[2023-03-23] MEDS: LOSARTAN POTASSIUM 50 MG TABLET PO SCH (09:20)
[2023-03-23] MEDS ORDERED: CRANBERRY 500 MG PO SCH (10:00)
[2023-03-23] MEDS ORDERED: amLODIPine BESYLATE 10 MG TABLET (FP) PO SCH (10:00)
[2023-03-23] MEDS ORDERED: PATIENT'S OWN MEDICATION (NON-FORMULARY) (Cran/Vitc/Mannose/Fos/Bromeln [Uti-Stat Liquid] PO SCH (10:00)
[2023-03-23] MEDS ORDERED: NIFEdipine E.R. 90 MG TABLET PO SCH (10:00)
[2023-03-23] MEDS: cloNIDine HCL 0.1 MG TABLET PO SCH ×2 (14:18→21:35)
[2023-03-23] MEDS ORDERED: cloNIDine-TTS 0.1 MG/24 HRS PATCH.TDWK TD SCH (14:30)
[2023-03-23] MEDS: FAMOTIDINE 10 MG TABLET PO SCH (21:34)
[2023-03-23] MEDS: ATORVASTATIN CA 40 MG TABLET (FP) PO SCH (21:35)
[2023-03-23] MEDS: HYDROCHLOROTHIAZIDE 25 MG TABLET (FP) PO SCH (21:35)
[2023-03-23] MEDS: DONEPEZIL HCL 10 MG TABLET (FP) PO SCH (21:35)
[2023-03-23] MEDS: MELATONIN 5 MG TABLETS PO SCH (21:36)
[2023-03-23] MEDS: LATANOPROST 0.005% OPHTH SOLN 2.5ML BOTTLE OU SCH (21:37)
[2023-03-23] MEDS: NIFEdipine E.R 60 MG TABLET PO SCH (21:39)
[2023-03-24] MEDS: cloNIDine HCL 0.1 MG TABLET PO SCH (06:12)
[2023-03-24 07:52] LABS: HEMATOCRIT 35.8 % (32.4-45.2); HEMOGLOBIN 11.6 GM/dL (10.7-15.3); MCH 29.4 pg (25.7-33.7); MCHC 32.4 g/dl (32.0-36.0); MEAN CELL VOLUME 90.9 fl (80-96); MEAN PLT VOLUME 8.7 fl (7.5-11.1); PLATELET COUNT 254 10^3/uL (134-434); RBC 3.94 M/mm3 (3.60-5.2); RDW 13.8 % (11.6-15.6); WHITE BLOOD COUNT 5.4 K/mm3 (4.0-10.0)
[2023-03-24 08:05] LABS: POTASSIUM 4.3 mmol/L (3.5-5.1)
[2023-03-24 08:13] LABS: CALCIUM 9.6 mg/dL (8.5-10.1)
[2023-03-24 08:14] LABS: ALBUMIN 3.4 g/dl (3.4-5.0); BLOOD UREA NITROGEN 51.6 mg/dL (7-18); MAGNESIUM 2.5 mg/dL (1.8-2.4)
[2023-03-24 08:16] LABS: PHOSPHOROUS 4.9 mg/dL (2.5-4.9)
[2023-03-24 08:18] LABS: BILIRUBIN,TOTAL 0.9 mg/dL (0.2-1); TOT PROT 6.6 g/dl (6.4-8.2)
[2023-03-24] MEDS: APIXABAN 2.5 MG TABLET PO SCH ×2 (09:57→22:29)
[2023-03-24] MEDS: SERTRALINE HCL 50 MG TABLET (FP) PO SCH (09:57)
[2023-03-24] MEDS: POLYETHYLENE GLYCOL (HEALTHYLAX) 3350 17 GM PACKET PO SCH (09:58)
[2023-03-24] MEDS: SPIRONOLACTONE 25 MG TABLET PO SCH (09:59)
[2023-03-24] MEDS: LOSARTAN POTASSIUM 50 MG TABLET PO SCH (10:00)
[2023-03-24] MEDS: MEMANTINE HCL 10 MG TABLET (FP) PO SCH ×2 (10:00→22:29)
[2023-03-24] MEDS: METOPROLOL TARTRATE 25 MG TABLET (FP) PO SCH (10:01)
[2023-03-24] MEDS: NIFEdipine E.R 60 MG TABLET PO SCH (10:01)
[2023-03-24] MEDS: HYDROCHLOROTHIAZIDE 25 MG TABLET (FP) PO SCH (22:29)
[2023-03-24] MEDS: DONEPEZIL HCL 10 MG TABLET (FP) PO SCH (22:29)
[2023-03-24] MEDS: FAMOTIDINE 10 MG TABLET PO SCH (22:29)
[2023-03-24] MEDS: ATORVASTATIN CA 40 MG TABLET (FP) PO SCH (22:29)
[2023-03-24] MEDS: MELATONIN 5 MG TABLETS PO SCH (22:30)
[2023-03-24] MEDS: LATANOPROST 0.005% OPHTH SOLN 2.5ML BOTTLE OU SCH (22:32)
[2023-03-25] MEDS: AMINO ACIDS/PROTEIN HYDROLYS 30 ML LIQUID.PKT PO SCH (08:32)
[2023-03-25 09:07] LABS: HEMATOCRIT 37.4 % (32.4-45.2); HEMOGLOBIN 11.8 GM/dL (10.7-15.3); MCHC 31.6 g/dl (32.0-36.0); MEAN CELL VOLUME 91.8 fl (80-96); MEAN PLT VOLUME 9.1 fl (7.5-11.1); PLATELET COUNT 262 10^3/uL (134-434); RBC 4.08 M/mm3 (3.60-5.2); RDW 13.4 % (11.6-15.6); WHITE BLOOD COUNT 6.4 K/mm3 (4.0-10.0)
[2023-03-25 09:20] LABS: POTASSIUM 4.3 mmol/L (3.5-5.1)
[2023-03-25 09:28] LABS: ALBUMIN 3.5 g/dl (3.4-5.0); BLOOD UREA NITROGEN 73.5 mg/dL (7-18); CALCIUM 9.4 mg/dL (8.5-10.1); MAGNESIUM 2.6 mg/dL (1.8-2.4)
[2023-03-25 09:31] LABS: BILIRUBIN,TOTAL 0.7 mg/dL (0.2-1); PHOSPHOROUS 4.6 mg/dL (2.5-4.9); TOT PROT 6.8 g/dl (6.4-8.2)
[2023-03-25 09:32] LABS: CREATININE 3.8 mg/dL (0.55-1.3)
[2023-03-25] MEDS ORDERED: NIFEdipine E.R 60 MG TABLET PO SCH (10:00)
[2023-03-25] MEDS: APIXABAN 2.5 MG TABLET PO SCH ×2 (10:40→21:52)
[2023-03-25] MEDS: LOSARTAN POTASSIUM 50 MG TABLET PO SCH (10:40)
[2023-03-25] MEDS: POLYETHYLENE GLYCOL (HEALTHYLAX) 3350 17 GM PACKET PO SCH (10:40)
[2023-03-25] MEDS: MEMANTINE HCL 10 MG TABLET (FP) PO SCH ×2 (10:40→21:52)
[2023-03-25] MEDS: SERTRALINE HCL 50 MG TABLET (FP) PO SCH (10:40)
[2023-03-25] MEDS: ATORVASTATIN CA 40 MG TABLET (FP) PO SCH (21:52)
[2023-03-25] MEDS: DONEPEZIL HCL 10 MG TABLET (FP) PO SCH (21:52)
[2023-03-25] MEDS: MELATONIN 5 MG TABLETS PO SCH (21:52)
[2023-03-25] MEDS: FAMOTIDINE 10 MG TABLET PO SCH (21:52)
[2023-03-25] MEDS: NIFEdipine E.R 60 MG TABLET PO SCH (21:52)
[2023-03-25] MEDS: LATANOPROST 0.005% OPHTH SOLN 2.5ML BOTTLE OU SCH (21:59)
[2023-03-26] MEDS: AMINO ACIDS/PROTEIN HYDROLYS 30 ML LIQUID.PKT PO SCH (07:51)
[2023-03-26 08:21] LABS: HEMATOCRIT 34.9 % (32.4-45.2); HEMOGLOBIN 11.7 GM/dL (10.7-15.3); MCH 29.9 pg (25.7-33.7); MCHC 33.4 g/dl (32.0-36.0); MEAN CELL VOLUME 89.5 fl (80-96); MEAN PLT VOLUME 8.3 fl (7.5-11.1); PLATELET COUNT 241 10^3/uL (134-434); RBC 3.89 M/mm3 (3.60-5.2); RDW 13.4 % (11.6-15.6); WHITE BLOOD COUNT 5.1 K/mm3 (4.0-10.0)
[2023-03-26 08:31] LABS: POTASSIUM 4.4 mmol/L (3.5-5.1)
[2023-03-26 08:40] LABS: BLOOD UREA NITROGEN 86.5 mg/dL (7-18); CALCIUM 9.3 mg/dL (8.5-10.1)
[2023-03-26 08:42] LABS: MAGNESIUM 2.8 mg/dL (1.8-2.4); PHOSPHOROUS 4.2 mg/dL (2.5-4.9)
[2023-03-26 08:44] LABS: CREATININE 3.5 mg/dL (0.55-1.3)
[2023-03-26] MEDS: NIFEdipine E.R 60 MG TABLET PO SCH ×2 (09:55→21:59)
[2023-03-26] MEDS: SERTRALINE HCL 50 MG TABLET (FP) PO SCH (09:55)
[2023-03-26] MEDS: MEMANTINE HCL 10 MG TABLET (FP) PO SCH ×2 (09:55→21:59)
[2023-03-26] MEDS: POLYETHYLENE GLYCOL (HEALTHYLAX) 3350 17 GM PACKET PO SCH (09:56)
[2023-03-26] MEDS: APIXABAN 2.5 MG TABLET PO SCH ×2 (09:56→21:57)
[2023-03-26] MEDS: LOSARTAN POTASSIUM 50 MG TABLET PO SCH (09:56)
[2023-03-26] MEDS: DONEPEZIL HCL 10 MG TABLET (FP) PO SCH (21:57)
[2023-03-26] MEDS: FAMOTIDINE 10 MG TABLET PO SCH (21:57)
[2023-03-26] MEDS: ATORVASTATIN CA 40 MG TABLET (FP) PO SCH (21:58)
[2023-03-26] MEDS: HYDROCHLOROTHIAZIDE 25 MG TABLET (FP) PO SCH (21:59)
[2023-03-26] MEDS: MELATONIN 5 MG TABLETS PO SCH (21:59)
[2023-03-26] MEDS: LATANOPROST 0.005% OPHTH SOLN 2.5ML BOTTLE OU SCH (22:10)
[2023-03-27 08:38] LABS: HEMATOCRIT 40.6 % (32.4-45.2); MCH 29.3 pg (25.7-33.7); MCHC 32.1 g/dl (32.0-36.0); MEAN CELL VOLUME 91.4 fl (80-96); MEAN PLT VOLUME 9.1 fl (7.5-11.1); PLATELET COUNT 250 10^3/uL (134-434); RBC 4.44 M/mm3 (3.60-5.2); RDW 13.4 % (11.6-15.6)
[2023-03-27 08:59] LABS: POTASSIUM 4.5 mmol/L (3.5-5.1)
[2023-03-27 09:05] LABS: CALCIUM 9.6 mg/dL (8.5-10.1)
[2023-03-27 09:07] LABS: ALBUMIN 3.6 g/dl (3.4-5.0); BLOOD UREA NITROGEN 79.6 mg/dL (7-18); MAGNESIUM 2.8 mg/dL (1.8-2.4)
[2023-03-27 09:10] LABS: BILIRUBIN,TOTAL 0.8 mg/dL (0.2-1); TOT PROT 7.2 g/dl (6.4-8.2)
[2023-03-27] MEDS: AMINO ACIDS/PROTEIN HYDROLYS 30 ML LIQUID.PKT PO SCH (10:24)
[2023-03-27] MEDS: SERTRALINE HCL 50 MG TABLET (FP) PO SCH (10:24)
[2023-03-27] MEDS: APIXABAN 2.5 MG TABLET PO SCH ×2 (10:25→21:22)
[2023-03-27] MEDS: LOSARTAN POTASSIUM 50 MG TABLET PO SCH (10:25)
[2023-03-27] MEDS: MEMANTINE HCL 10 MG TABLET (FP) PO SCH ×2 (10:25→21:23)
[2023-03-27] MEDS: NIFEdipine E.R 60 MG TABLET PO SCH ×2 (10:26→21:23)
[2023-03-27] MEDS: POLYETHYLENE GLYCOL (HEALTHYLAX) 3350 17 GM PACKET PO SCH (10:30)
[2023-03-27] MEDS: ATORVASTATIN CA 40 MG TABLET (FP) PO SCH (21:22)
[2023-03-27] MEDS: DONEPEZIL HCL 10 MG TABLET (FP) PO SCH (21:22)
[2023-03-27] MEDS: FAMOTIDINE 10 MG TABLET PO SCH (21:22)
[2023-03-27] MEDS: MELATONIN 5 MG TABLETS PO SCH (21:23)
[2023-03-27] MEDS: HYDROCHLOROTHIAZIDE 25 MG TABLET (FP) PO SCH (21:27)
[2023-03-27] MEDS: LATANOPROST 0.005% OPHTH SOLN 2.5ML BOTTLE OU SCH (21:31)
[2023-03-28 07:56] LABS: HEMATOCRIT 42.9 % (32.4-45.2); HEMOGLOBIN 13.9 GM/dL (10.7-15.3); MCH 29.7 pg (25.7-33.7); MCHC 32.3 g/dl (32.0-36.0); MEAN CELL VOLUME 91.8 fl (80-96); MEAN PLT VOLUME 8.9 fl (7.5-11.1); PLATELET COUNT 245 10^3/uL (134-434); RBC 4.68 M/mm3 (3.60-5.2); RDW 13.5 % (11.6-15.6); WHITE BLOOD COUNT 5.5 K/mm3 (4.0-10.0)
[2023-03-28 08:17] LABS: POTASSIUM 4.5 mmol/L (3.5-5.1)
[2023-03-28 08:19] LABS: ALBUMIN 3.8 g/dl (3.4-5.0); CALCIUM 9.9 mg/dL (8.5-10.1)
[2023-03-28 08:20] LABS: BLOOD UREA NITROGEN 89.7 mg/dL (7-18); MAGNESIUM 2.9 mg/dL (1.8-2.4)
[2023-03-28 08:22] LABS: CREATININE 2.8 mg/dL (0.55-1.3)
[2023-03-28 08:24] LABS: BILIRUBIN,TOTAL 0.6 mg/dL (0.2-1); TOT PROT 7.6 g/dl (6.4-8.2)
[2023-03-28] MEDS: SERTRALINE HCL 50 MG TABLET (FP) PO SCH (09:36)
[2023-03-28] MEDS: APIXABAN 2.5 MG TABLET PO SCH ×2 (09:36→22:01)
[2023-03-28] MEDS: AMINO ACIDS/PROTEIN HYDROLYS 30 ML LIQUID.PKT PO SCH (09:37)
[2023-03-28] MEDS: LOSARTAN POTASSIUM 50 MG TABLET PO SCH (09:37)
[2023-03-28] MEDS: NIFEdipine E.R 60 MG TABLET PO SCH ×2 (09:37→22:02)
[2023-03-28] MEDS: MEMANTINE HCL 10 MG TABLET (FP) PO SCH ×2 (09:37→22:01)
[2023-03-28] MEDS: POLYETHYLENE GLYCOL (HEALTHYLAX) 3350 17 GM PACKET PO SCH (09:51)
[2023-03-28] MEDS: FAMOTIDINE 10 MG TABLET PO SCH (22:01)
[2023-03-28] MEDS: ATORVASTATIN CA 40 MG TABLET (FP) PO SCH (22:01)
[2023-03-28] MEDS: MELATONIN 5 MG TABLETS PO SCH (22:01)
[2023-03-28] MEDS: LATANOPROST 0.005% OPHTH SOLN 2.5ML BOTTLE OU SCH (22:02)
[2023-03-29 07:49] LABS: HEMATOCRIT 41.5 % (32.4-45.2); HEMOGLOBIN 13.4 GM/dL (10.7-15.3); MCH 29.8 pg (25.7-33.7); MCHC 32.4 g/dl (32.0-36.0); MEAN PLT VOLUME 8.9 fl (7.5-11.1); PLATELET COUNT 261 10^3/uL (134-434); RBC 4.51 M/mm3 (3.60-5.2); RDW 13.4 % (11.6-15.6); WHITE BLOOD COUNT 5.6 K/mm3 (4.0-10.0)
[2023-03-29 08:36] LABS: POTASSIUM 4.8 mmol/L (3.5-5.1)
[2023-03-29 08:44] LABS: CALCIUM 9.7 mg/dL (8.5-10.1)
[2023-03-29 08:45] LABS: ALBUMIN 3.6 g/dl (3.4-5.0); BLOOD UREA NITROGEN 89.4 mg/dL (7-18); MAGNESIUM 2.5 mg/dL (1.8-2.4)
[2023-03-29 08:48] LABS: CREATININE 2.7 mg/dL (0.55-1.3); PHOSPHOROUS 3.4 mg/dL (2.5-4.9)
[2023-03-29 08:49] LABS: BILIRUBIN,TOTAL 0.6 mg/dL (0.2-1); TOT PROT 7.4 g/dl (6.4-8.2)
[2023-03-29] MEDS: POLYETHYLENE GLYCOL (HEALTHYLAX) 3350 17 GM PACKET PO SCH (10:55)
[2023-03-29] MEDS: LOSARTAN POTASSIUM 50 MG TABLET PO SCH (10:55)
[2023-03-29] MEDS: NIFEdipine E.R 60 MG TABLET PO SCH ×2 (10:55→18:13)
[2023-03-29] MEDS: APIXABAN 2.5 MG TABLET PO SCH ×2 (10:55→21:41)
[2023-03-29] MEDS: AMINO ACIDS/PROTEIN HYDROLYS 30 ML LIQUID.PKT PO SCH (10:55)
[2023-03-29] MEDS: MEMANTINE HCL 10 MG TABLET (FP) PO SCH ×2 (10:55→21:41)
[2023-03-29] MEDS: SERTRALINE HCL 50 MG TABLET (FP) PO SCH (10:55)
[2023-03-29] MEDS ORDERED: cloNIDine-TTS 0.2 MG/24 HOURS PATCH.TDWK TD SCH (11:57)
[2023-03-29] MEDS: MELATONIN 5 MG TABLETS PO SCH (21:41)
[2023-03-29] MEDS: ATORVASTATIN CA 40 MG TABLET (FP) PO SCH (21:41)
[2023-03-29] MEDS: FAMOTIDINE 10 MG TABLET PO SCH (21:41)
[2023-03-29] MEDS: LATANOPROST 0.005% OPHTH SOLN 2.5ML BOTTLE OU SCH (21:54)
[2023-03-29] MEDS ORDERED: NIFEdipine E.R 60 MG TABLET PO SCH (22:00)
[2023-03-29 22:32] VITALS: BP 187/79; PULSE 60; RESP 18; TEMP 98.7
== END 2023-03-29 22:36 | DRG 305 ==
LOC: JER 11:37 → JERBED 17:08 → J4W 19:43
PROVIDERS: ADMIT Internal Medicine; ATTEND Internal Medicine
DX: I16.1 Hypertensive emergency (principal); I74.9 Embolism and thrombosis of unspecified artery; N17.9 Acute kidney failure, unspecified; E87.0 Hyperosmolality and hypernatremia; I16.0 Hypertensive urgency; I12.9 Hypertensive chronic kidney disease with stage 1 through stage 4 chronic kidney disease, or unspecified chronic kidney disease; F03.90 Unspecified dementia, unspecified severity, without behavioral disturbance, psychotic disturbance, mood disturbance, and anxiety; K21.9 Gastro-esophageal reflux disease without esophagitis; F41.8 Other specified anxiety disorders; R00.1 Bradycardia, unspecified; K59.00 Constipation, unspecified; E78.5 Hyperlipidemia, unspecified; N18.30 Chronic kidney disease, stage 3 unspecified; R62.7 Adult failure to thrive
CPT/HCPCS: 36415; 70450-TC; 71046-TC-FY; 76775-TC; 80048; 80053; 81003; 82803; 83605; 83735; 84100; 84436; 84443; 84484; 85025; 85027; 85610; 85730; 87040; 87635; 93005; 93010; 93975; 97116-GP; 97161-GP; 99285-25

== ENCOUNTER 2024-01-11 21:29 | Inpatient (IN) | payer OTHER ==
[2024-01-11] MEDS: SODIUM CHLORIDE 0.9% 500 ML INFUS.BAG IV ONE (23:13)
[2024-01-11] MEDS: LACTATED RINGERS SOLUTION 1,000 ML/1,000 ML INFUS.BAG IV SCH (23:13)
[2024-01-12] MEDS ORDERED: SENNOSIDES 8.6MG TABLET (FP) PO PRN (00:16)
[2024-01-12] MEDS: cloNIDine HCL 0.1 MG TABLET PO ONE (01:06)
[2024-01-12] MEDS ORDERED: ONDANSETRON 4 MG TABLET PO PRN (01:23)
[2024-01-12] MEDS: NIFEdipine E.R. 30 MG TABLET PO ONE (01:47)
[2024-01-12] MEDS: cloNIDine-TTS 0.1 MG/24 HRS PATCH.TDWK TD SCH (01:47)
[2024-01-12] MEDS: cloNIDine-TTS 0.2 MG/24 HOURS PATCH.TDWK TD SCH (07:20)
[2024-01-12] MEDS ORDERED: CEPHALEXIN MONOHYDRATE 250 MG CAPSULE (FP) PO SCH (08:00)
[2024-01-12] MEDS: MINERAL OIL ENEMA 133 ML ENEMA RC ONE ×2 (08:36→09:43)
[2024-01-12 08:42] LABS: BASO % 0.9 % (0-2.0); EOS % 4.6 % (0-4.5); HEMATOCRIT 34.1 % (32.4-45.2); HEMOGLOBIN 11.1 GM/dL (10.7-15.3); MCH 30.8 pg (25.7-33.7); MCHC 32.6 g/dl (32.0-36.0); MEAN CELL VOLUME 94.5 fl (80-96); MEAN PLT VOLUME 8.4 fl (7.5-11.1); MONO % 8.9 % (3.8-10.2); NEUT % 62.6 % (42.8-82.8); PLATELET COUNT 254 10^3/uL (134-434); RBC 3.61 M/mm3 (3.60-5.2); RDW 14.1 % (11.6-15.6); WHITE BLOOD COUNT 5.4 K/mm3 (4.0-10.0)
[2024-01-12 09:00] LABS: POTASSIUM 4.8 mmol/L (3.5-5.1)
[2024-01-12 09:07] LABS: ALBUMIN 3.6 g/dl (3.4-5.0); BLOOD UREA NITROGEN 48.8 mg/dL (7-18); MAGNESIUM 2.4 mg/dL (1.8-2.4)
[2024-01-12 09:10] LABS: CREATININE 2.3 mg/dL (0.55-1.3); PHOSPHOROUS 3.8 mg/dL (2.5-4.9)
[2024-01-12 09:11] LABS: BILIRUBIN,TOTAL 0.6 mg/dL (0.2-1)
[2024-01-12 09:12] LABS: TOT PROT 7.1 g/dl (6.4-8.2)
[2024-01-12] MEDS: FERROUS SO4 325 MG TABLET (FP) PO SCH (09:49)
[2024-01-12] MEDS: MEMANTINE HCL 10 MG TABLET (FP) PO SCH (09:49)
[2024-01-12] MEDS: APIXABAN 2.5 MG TABLET PO SCH (09:49)
[2024-01-12] MEDS: NIFEdipine E.R 60 MG TABLET PO SCH ×2 (09:49→21:54)
[2024-01-12] MEDS: LOSARTAN POTASSIUM 50 MG TABLET PO SCH (09:49)
[2024-01-12] MEDS: SERTRALINE HCL 50 MG TABLET (FP) PO SCH (09:49)
[2024-01-12] MEDS: CEFUROXIME AXETIL 250 MG TABLET PO SCH (09:49)
[2024-01-12] MEDS: POLYETHYLENE GLYCOL (HEALTHYLAX) 3350 17 GM PACKET PO SCH (09:50)
[2024-01-12] MEDS ORDERED: HEPARIN NA (PORCINE) 5,000 UNITS/ML 1ML VIAL SQ SCH (10:00)
[2024-01-12] MEDS ORDERED: POLYETHYLENE GLYCOL (HEALTHYLAX) 3350 17 GM PACKET PO SCH (10:00)
[2024-01-12] MEDS ORDERED: PATIENT'S OWN MEDICATION (NON-FORMULARY) (Cran/Vitc/Mannose/Fos/Bromeln [Uti-Stat Liquid] PO SCH (10:00)
[2024-01-12] MEDS: MAGNESIUM CITRATE 300 ML BOTTLE PO ONE (10:58)
[2024-01-12] MEDS: CEPHALEXIN MONOHYDRATE 250 MG CAPSULE (FP) PO SCH (12:13)
[2024-01-12] MEDS: SPIRONOLACTONE 25 MG TABLET PO SCH (15:18)
[2024-01-12] MEDS: MELATONIN 5 MG TABLETS PO SCH (21:54)
[2024-01-12] MEDS: MIRTAZAPINE 15 MG TABLET (FP) PO SCH (21:54)
[2024-01-12] MEDS: VALSARTAN 160 MG TABLET PO SCH (21:54)
[2024-01-12] MEDS: FAMOTIDINE 10 MG TABLET PO SCH (21:54)
[2024-01-12] MEDS: ATORVASTATIN CA 40 MG TABLET (FP) PO SCH (21:54)
[2024-01-12] MEDS: LATANOPROST 0.005% OPHTH SOLN 2.5ML BOTTLE OU SCH (23:09)
[2024-01-13 10:12] LABS: CHLORIDE 109 mmol/L (98-107); SODIUM 139 mmol/L (136-145)
[2024-01-13 10:15] LABS: CALCIUM 9.3 mg/dL (8.5-10.1); CO2 28 mmol/L (21-32); GLUCOSE,RANDOM 111 mg/dL (74-106)
[2024-01-13 10:16] LABS: BLOOD UREA NITROGEN 72.6 mg/dL (7-18)
[2024-01-13 10:19] LABS: CREATININE 3.6 mg/dL (0.55-1.3)
[2024-01-13 10:30] LABS: ANION GAP 2 mmol/L (4-13); POTASSIUM 6.9 mmol/L (3.5-5.1)
[2024-01-13] MEDS: cloNIDine-TTS 0.1 MG/24 HRS PATCH.TDWK TD SCH (11:36)
[2024-01-13] MEDS: CEFTRIAXONE 1 GM in DEXTROSE 5%-WATER - 50 ML IVPB SCH (11:49)
[2024-01-13] MEDS: SODIUM CHLORIDE 0.45% 1,000 ML IV SCH (11:50)
[2024-01-13] MEDS ORDERED: SODIUM ZIRCONIUM CYCLOSILICATE (LOKELMA) 10 GM PACKET PO SCH (12:00)
[2024-01-13] MEDS: SODIUM ZIRCONIUM CYCLOSILICATE (LOKELMA) 10 GM PACKET PO SCH (12:21)
[2024-01-13 15:14] LABS: CHLORIDE 107 mmol/L (98-107); SODIUM 138 mmol/L (136-145)
[2024-01-13 15:16] LABS: BLOOD UREA NITROGEN 75.1 mg/dL (7-18); CO2 28 mmol/L (21-32); GLUCOSE,RANDOM 158 mg/dL (74-106)
[2024-01-13 15:30] LABS: ANION GAP 3 mmol/L (4-13); POTASSIUM 6.3 mmol/L (3.5-5.1)
[2024-01-13 20:49] LABS: EPI CELLS 16 /uL (0-25.1); HYALINE CASTS 1 /uL (0-3.1); PH,URINE 5.5 (5.0-8.0); URINE APPEARANCE CLOUDY; URINE BACTERIA >9,000 /uL (0-1359); URINE BILIRUBIN NEGATIVE (NEGATIVE); URINE COLOR YELLOW; URINE GLUCOSE (UA) NEGATIVE (NEGATIVE); URINE KETONE 1+ (NEGATIVE); URINE LEUK ESTERASE 2+ (NEGATIVE); URINE NITRITE NEGATIVE (NEGATIVE); URINE PROTEIN 3+ (NEGATIVE); URINE UROBILINOGEN 0.2 mg/dL (0.2-1.0); URINE WBC 124 /uL (0-25.8)
[2024-01-13 22:02] LABS: URINE RBC 101 /uL (0-23.9)
[2024-01-14 07:38] LABS: POTASSIUM 5.7 mmol/L (3.5-5.1)
[2024-01-14 07:46] LABS: CALCIUM 9.2 mg/dL (8.5-10.1)
[2024-01-14 07:47] LABS: BLOOD UREA NITROGEN 82.6 mg/dL (7-18)
[2024-01-14 07:50] LABS: CREATININE 4.2 mg/dL (0.55-1.3)
[2024-01-14] MEDS ORDERED: SODIUM ZIRCONIUM CYCLOSILICATE (LOKELMA) 5 GM PACKET PO SCH (14:26)
[2024-01-15] MEDS ORDERED: NIFEdipine E.R. 30 MG TABLET PO SCH (03:20)
[2024-01-15] MEDS: NIFEdipine E.R. 30 MG TABLET PO ONE (04:09)
[2024-01-15] MEDS: NIFEdipine 10 MG CAPSULE (FP) PO SCH (05:24)
[2024-01-15 07:39] LABS: HEMATOCRIT 31.3 % (32.4-45.2); HEMOGLOBIN 10.4 GM/dL (10.7-15.3); MCH 31.4 pg (25.7-33.7); MCHC 33.2 g/dl (32.0-36.0); MEAN CELL VOLUME 94.6 fl (80-96); MEAN PLT VOLUME 8.8 fl (7.5-11.1); PLATELET COUNT 228 10^3/uL (134-434); RBC 3.31 M/mm3 (3.60-5.2); RDW 13.9 % (11.6-15.6); WHITE BLOOD COUNT 4.7 K/mm3 (4.0-10.0)
[2024-01-15 07:59] LABS: POTASSIUM 5.1 mmol/L (3.5-5.1)
[2024-01-15 08:01] LABS: BLOOD UREA NITROGEN 75.5 mg/dL (7-18); CALCIUM 9.1 mg/dL (8.5-10.1)
[2024-01-15 08:05] LABS: CREATININE 3.6 mg/dL (0.55-1.3)
[2024-01-15 08:06] LABS: BILIRUBIN,TOTAL 0.4 mg/dL (0.2-1); TOT PROT 6.3 g/dl (6.4-8.2)
[2024-01-15] MEDS: NIFEdipine E.R 60 MG TABLET PO SCH (09:43)
[2024-01-15] MEDS: cloNIDine-TTS 0.1 MG/24 HRS PATCH.TDWK TD SCH (12:20)
[2024-01-15] MEDS: SODIUM ZIRCONIUM CYCLOSILICATE (LOKELMA) 10 GM PACKET PO SCH (12:21)
[2024-01-15] MEDS: MIRTAZAPINE 15 MG TABLET (FP) PO SCH (21:43)
[2024-01-16 07:19] LABS: HEMATOCRIT 30.5 % (32.4-45.2); MCH 31.4 pg (25.7-33.7); MCHC 32.8 g/dl (32.0-36.0); MEAN CELL VOLUME 95.7 fl (80-96); MEAN PLT VOLUME 8.3 fl (7.5-11.1); PLATELET COUNT 221 10^3/uL (134-434); RBC 3.18 M/mm3 (3.60-5.2); RDW 13.5 % (11.6-15.6)
[2024-01-16 07:35] LABS: POTASSIUM 4.6 mmol/L (3.5-5.1)
[2024-01-16 07:41] LABS: ALBUMIN 2.9 g/dl (3.4-5.0); BLOOD UREA NITROGEN 76.5 mg/dL (7-18); CALCIUM 8.9 mg/dL (8.5-10.1)
[2024-01-16 07:42] LABS: CREATININE 3.4 mg/dL (0.55-1.3)
[2024-01-16 07:44] LABS: BILIRUBIN,TOTAL 0.4 mg/dL (0.2-1)
[2024-01-17 07:41] LABS: CALCIUM 9.2 mg/dL (8.5-10.1); POTASSIUM 5.1 mmol/L (3.5-5.1)
[2024-01-17 07:43] LABS: BLOOD UREA NITROGEN 74.8 mg/dL (7-18)
[2024-01-17 07:45] LABS: HEMATOCRIT 32.9 % (32.4-45.2); HEMOGLOBIN 10.9 GM/dL (10.7-15.3); MCH 31.2 pg (25.7-33.7); MCHC 33.2 g/dl (32.0-36.0); MEAN CELL VOLUME 94.1 fl (80-96); RBC 3.49 M/mm3 (3.60-5.2); RDW 13.9 % (11.6-15.6)
[2024-01-17 07:46] LABS: CREATININE 3.1 mg/dL (0.55-1.3)
[2024-01-17 09:20] LABS: ANISOCYTOSIS 0; MACROCYTOSIS 0
[2024-01-17 09:27] LABS: PLATELET ESTIMATE ADEQUATE
[2024-01-17] MEDS ORDERED: cloNIDine-TTS 0.1 MG/24 HRS PATCH.TDWK TD SCH (09:30)
[2024-01-17] MEDS: cloNIDine-TTS 0.1 MG/24 HRS PATCH.TDWK TD SCH (10:53)
[2024-01-17 13:19] LABS: HEMATOCRIT 32.4 % (32.4-45.2); HEMOGLOBIN 10.6 GM/dL (10.7-15.3); MCH 30.7 pg (25.7-33.7); MCHC 32.6 g/dl (32.0-36.0); MEAN PLT VOLUME 8.5 fl (7.5-11.1); PLATELET COUNT 253 10^3/uL (134-434); RBC 3.45 M/mm3 (3.60-5.2); RDW 14.1 % (11.6-15.6); WHITE BLOOD COUNT 4.6 K/mm3 (4.0-10.0)
[2024-01-17] MEDS: NIFEdipine E.R. 30 MG TABLET PO ONE ×2 (14:23→21:07)
[2024-01-18 08:30] LABS: BASO % 0.5 % (0-2.0); EOS % 3.4 % (0-4.5); HEMATOCRIT 37.6 % (32.4-45.2); HEMOGLOBIN 12.7 GM/dL (10.7-15.3); LYMPH % 21.4 % (8-40); MCH 31.7 pg (25.7-33.7); MCHC 33.7 g/dl (32.0-36.0); MEAN CELL VOLUME 93.9 fl (80-96); MEAN PLT VOLUME 8.6 fl (7.5-11.1); MONO % 7.2 % (3.8-10.2); NEUT % 67.5 % (42.8-82.8); PLATELET COUNT 265 10^3/uL (134-434); RDW 14.1 % (11.6-15.6); WHITE BLOOD COUNT 4.9 K/mm3 (4.0-10.0)
[2024-01-18 08:40] LABS: POTASSIUM 4.8 mmol/L (3.5-5.1)
[2024-01-18 08:42] LABS: CALCIUM 9.6 mg/dL (8.5-10.1)
[2024-01-18 08:43] LABS: ALBUMIN 3.4 g/dl (3.4-5.0); BLOOD UREA NITROGEN 68.4 mg/dL (7-18)
[2024-01-18 08:47] LABS: BILIRUBIN,TOTAL 0.4 mg/dL (0.2-1); CREATININE 2.9 mg/dL (0.55-1.3); TOT PROT 7.2 g/dl (6.4-8.2)
[2024-01-18 15:34] VITALS: BP 117/66; PULSE 48; RESP 19; TEMP 98.7
[2024-01-18] MEDS ORDERED: NIFEdipine E.R. 30 MG TABLET PO SCH (22:00)
[2024-01-19] MEDS ORDERED: NIFEdipine E.R. 90 MG TABLET PO SCH (10:00)
== END 2024-01-18 17:08 | DRG 683 ==
LOC: JER 21:29 → INTOOBSV 21:34 → UNDOADMOB 21:34 → JERBED 21:34 → OBSVTOIN 21:34 → JERBED 23:58 → J4W 01-12 06:42 → JERBED 01-12 06:42 → OBSVTOIN 01-12 12:22 → J4W 01-12 23:57
PROVIDERS: ADMIT Internal Medicine; ATTEND Internal Medicine
DX: N17.9 Acute kidney failure, unspecified (principal); E87.0 Hyperosmolality and hypernatremia; R00.1 Bradycardia, unspecified; N18.4 Chronic kidney disease, stage 4 (severe); R55 Syncope and collapse; I12.9 Hypertensive chronic kidney disease with stage 1 through stage 4 chronic kidney disease, or unspecified chronic kidney disease; F03.90 Unspecified dementia, unspecified severity, without behavioral disturbance, psychotic disturbance, mood disturbance, and anxiety; E78.5 Hyperlipidemia, unspecified; K59.00 Constipation, unspecified; E87.5 Hyperkalemia; K21.9 Gastro-esophageal reflux disease without esophagitis; F41.8 Other specified anxiety disorders; R62.7 Adult failure to thrive; Z68.20 Body mass index [BMI] 20.0-20.9, adult; Z86.718 Personal history of other venous thrombosis and embolism
CPT/HCPCS: 36415; 70450-TC; 71045-TC-FY; 71250-TC; 72125-TC; 74176-TC; 80048; 80053; 81003; 82550; 82553; 82570; 83735; 84100; 84156; 84443; 84484; 85025; 85027; 85610; 85730; 86480; 86803; 86850; 86900; 86901; 87086; 87186; 87522; 93005; 93010; 93306-TC; 97116-GP; 97162-GP; 99285-25; G0378